=== PATIENT | male | born 1975 | race Caucasian/White ===

== ENCOUNTER 2021-09-21 13:24 | Outpatient (CLI) | payer OTHER, SELFPAY | END 2021-09-21 13:25 | disposition home or self-care (01) | LOC: WOUND 13:25 | PROVIDERS: Family Provider Nurse Practitioner Family; PCP Nurse Practitioner Family; Visit Provider Emergency Medicine | DX: I96 Gangrene, not elsewhere classified (principal); E11.621 Type 2 diabetes mellitus with foot ulcer; L97.412 Non-pressure chronic ulcer of right heel and midfoot with fat layer exposed; L97.512 Non-pressure chronic ulcer of other part of right foot with fat layer exposed | CPT/HCPCS: 11042; 87070; 87077; 87176; 87186; 87205; 99213 ==

== ENCOUNTER 2021-09-29 15:24 | Outpatient (CLI) | payer OTHER, SELFPAY ==
--- NOTE | 2021-09-29 15:47 | XR_ITS ---
WS: [id number] XR foot RT min 3V* [id number] REASON FOR EXAM: DIABETES MELLITUS WITH ULCER FINDINGS: No fracture no fracture. No bony erosion, destruction, or periosteal reaction. Bony fusion of the tarsal metatarsal joints of the first through the third toes. Moderate thickening of the cortex of the second through the fifth metatarsals. There is a pseudoarthrosis at the base of the fourth metatarsal. There is degenerative hypertrophic c hange in the articulation between the fourth and fifth metacarpals. Joint spaces of the mid and hindfoot are preserved. XR/XR foot RT min 3V* [id number] IMPRESSION: Presumed previous arthrodesis of the Lisfranc joint. No findings of osteomyelitis identified.
== END 2021-09-29 15:25 | disposition home or self-care (01) ==
LOC: RAD 15:31
PROVIDERS: Visit Provider Emergency Medicine
DX: E11.621 Type 2 diabetes mellitus with foot ulcer (principal)
CPT/HCPCS: 73630

== ENCOUNTER 2021-09-30 13:52 | Outpatient (CLI) | payer OTHER, SELFPAY | END 2021-09-30 13:53 | disposition home or self-care (01) | LOC: WOUND 13:53 | PROVIDERS: Visit Provider Nurse Practitioner Family | DX: I96 Gangrene, not elsewhere classified (principal); E11.621 Type 2 diabetes mellitus with foot ulcer; L97.412 Non-pressure chronic ulcer of right heel and midfoot with fat layer exposed; L97.512 Non-pressure chronic ulcer of other part of right foot with fat layer exposed | CPT/HCPCS: 11042 ==

== ENCOUNTER 2021-10-07 16:20 | Outpatient (CLI) | payer OTHER, SELFPAY | END 2021-10-07 16:21 | disposition home or self-care (01) | LOC: SPT 16:21 | PROVIDERS: Visit Provider Nurse Practitioner Family | DX: R26.89 Other abnormalities of gait and mobility (principal) | CPT/HCPCS: 97760 ==

== ENCOUNTER 2021-10-21 14:05 | Outpatient (CLI) | payer OTHER, SELFPAY | END 2021-10-21 14:06 | disposition home or self-care (01) | LOC: WOUND 14:06 | PROVIDERS: Visit Provider Emergency Medicine | DX: E11.621 Type 2 diabetes mellitus with foot ulcer (principal); I96 Gangrene, not elsewhere classified; L97.411 Non-pressure chronic ulcer of right heel and midfoot limited to breakdown of skin; L97.511 Non-pressure chronic ulcer of other part of right foot limited to breakdown of skin | CPT/HCPCS: 11042; 99212 ==

== ENCOUNTER 2021-10-28 13:52 | Outpatient (CLI) | payer OTHER, SELFPAY | END 2021-10-28 13:53 | disposition home or self-care (01) | LOC: WOUND 13:52 | PROVIDERS: Visit Provider Nurse Practitioner Family | DX: E11.621 Type 2 diabetes mellitus with foot ulcer (principal); L97.411 Non-pressure chronic ulcer of right heel and midfoot limited to breakdown of skin; L97.511 Non-pressure chronic ulcer of other part of right foot limited to breakdown of skin | CPT/HCPCS: 11042 ==

== ENCOUNTER 2021-11-30 11:22 | Outpatient (CLI) | payer OTHER, SELFPAY ==
--- NOTE | 2021-11-30 11:56 | USCV_ITS ---
Asif Guerra Age: 46 Gender: M : 1975 Exam Date: 11/30/2021 12:49 Ordering Phys: Marline Stephen DO Technologist: Charisse Crews [place] [facility] [place]: HISTORY: Non healing wound rt foot plantar surface. PROCEDURES: Venous duplex imaging was performed in only the right lower extremity. The following venous structures were evaluated: common femoral vein, greater saphenous vein, superficial femoral vein, and the popliteal vein. Study included Greater Saphenous vein and SSv. Serial compression, augmentation maneuvers, and spectral Doppler flow evaluation were performed. Grayscale and doppler images were obtained. Reflux maneuvers were performed with patient in the standing position. FINDINGS: ONLY RT LEG DONE PT VERY ANXIOUS TO HAVE SOMETHING DONE TO HELP WITH FOOT HEALING. Significant venous reflux was noted at the mid segment of the greater saphenous vein and small saphenous vein on the right side. CONCLUSIONS 1. No significant venous reflux in the above-mentioned identifiable veins. 2. Significant venous reflux of greater than 500 ms were noted at the mid segment of the greater saphenous vein and small saphenous vein on the right side. The small saphenous vein was found to be very superficial, at depth of 0.59 cm. 3. The greater saphenous vein segment was at a depth of 1.51 cm. The venous segment was 0.42 cm in diameter. Rest of the venous dimensions and depth from the surface are as mentioned above. No similar previous studies available for comparison Dr Tristin Robertson MD [facility] (Electronically Signed) Final Date: 06 December 2021 10:15 S
== END 2021-11-30 11:23 | disposition home or self-care (01) ==
PROVIDERS: Visit Provider Emergency Medicine
DX: E11.621 Type 2 diabetes mellitus with foot ulcer (principal); I87.2 Venous insufficiency (chronic) (peripheral)
CPT/HCPCS: 93971

== ENCOUNTER 2021-12-24 15:21 | Outpatient (CLI) | payer OTHER, SELFPAY ==
--- NOTE | 2021-12-24 15:47 | USCV_ITS ---
Asif Guerra Age: 46 Gender: M : 1975 Exam Date: 12/24/2021 15:50 Ordering Phys: Tesha Church Technologist: KRANTHI Exam Location: [facility] [place] Indication: TYPE II DIABETES MELLITUS FOOT ULCER Risk Factors: Previous Vascular Surgery: None RIGHT LEFT BP: 135.0 / 77.00 BP: 143.0/ 78.00 0 0 Waveform Velocity (cm/s) Velocity (cm/s) Waveform Triphasic 130.1 Iliac Prox 99.2 Triphasic Triphasic 90.4 Iliac Mid 97.3 Triphasic Triphasic 100.3 Iliac Distal 99.3 Triphasic Triphasic 88.2 BUSINESS DEVELOPMENT MANAGER 79.5 Triphasic Triphasic 102.5 SFA Prox 98.4 Triphasic Triphasic 78.3 SFA Mid 91.7 Triphasic Triphasic 114.7 SFA Dist 88.1 Triphasic Triphasic 65.9 POP 76.0 Triphasic Triphasic 84.0 DISPLAY DIRECTOR 42.4 Triphasic Triphasic 33.3 DPA 47.8 Triphasic SAMEER 1.3 1.3 FINDINGS RT DPA 170 RT DISPLAY DIRECTOR 180 LT DPA 160 LT DISPLAY DIRECTOR 184 Normal arterial Doppler waveforms Normal Doppler flow velocities Normal resting ABIs bilaterally CONCLUSIONS No evidence of any significant arterial obstruction, based on the above findings. Dr Tristin Robertson MD [facility] (Electronically Signed) Final Date: 25 Dec 2021 12:39 S
== END 2021-12-24 15:22 | disposition home or self-care (01) ==
LOC: RAD 15:25
PROVIDERS: Visit Provider Nurse Practitioner Family
DX: E11.621 Type 2 diabetes mellitus with foot ulcer (principal)
CPT/HCPCS: 93925

== ENCOUNTER → 2021-12-28 08:31 | Outpatient (BNVA) | payer OTHER, SELFPAY | PROVIDERS: Visit Provider Podiatrist Foot & Ankle Surgery | DX: E08.621 Diabetes mellitus due to underlying condition with foot ulcer (principal); L97.501 Non-pressure chronic ulcer of other part of unspecified foot limited to breakdown of skin | CPT/HCPCS: 73630 ==

== ENCOUNTER → 2022-03-24 13:49 | Outpatient (BNVA) | payer OTHER, SELFPAY | PROVIDERS: Visit Provider Nurse Practitioner Family | DX: Z01.89 Encounter for other specified special examinations (principal) | CPT/HCPCS: 87070; 87077; 87176; 87186; 87205 ==

== ENCOUNTER 2022-05-10 05:29 | Observation (INO) | payer OTHER, SELFPAY ==
[2022-05-10] VITALS (14 sets, daily range): BP systolic 114–138; BP diastolic 71–91; PULSE 54–114; RESP 16–21; TEMP 36.8–37.3; O2SAT 96–99; BMI 38.2; BMI 38.5
--- NOTE | 2022-05-10 05:46 | USCV_ITS ---
Mari Asif Age: 46 Gender: M : 1975 Exam Date: 05/10/2022 05:59 Ordering Phys: Joe Hudson MD Technologist: GREGORY Exam Location: [facility] [place] Indication: Rt leg swelling PROCEDURES: Venous duplex imaging was performed in only the right lower extremity. The following venous structures were evaluated: common femoral vein, profunda vein, proximal portion of the greater saphenous vein, superficial femoral vein, and the popliteal vein. In addition, the posterior tibial and peroneal trunk were evaluated. FINDINGS: Normal 2-D Doppler and augmentation and compressibility throughout the lower extremity venous structures. Additional imaging through the proximal calf veins also reveals no thrombus. Limited evaluation of the greater saphenous vein is patent with no thrombus. CONCLUSIONS No DVT right lower extremity. Dr. Lata Reilly DO (Electronically Signed) Final Date: 11 May 2022 09:50 S
--- NOTE | 2022-05-10 05:47 | ECG_ITS ---
[facility] Test Date: 2022-05-10 Pat Name: Asif Guerra Department: Room: Gender: Male [employer]: : 1975 Requested By: Joe Hernandez Order Number: [id number] Pepe MD: Tristin Robertson M.D. Measurements Intervals Rhame Rate: 101 P: 11 ID: [id number] QRS: -48 QRSD: 99 T: 30 QT: 338 QTc: 438 Interpretive Statements SINUS TACHYCARDIA LOW QRS VOLTAGE IN PRECORDIAL LEADS [QRS DEFLECTION < 1.0 mV IN CHEST LEADS] LEFT ANTERIOR FASCICULAR BLOCK [QRS AXIS <= -45, QR IN I, RS IN II] POSSIBLE ANTERIOR MYOCARDIAL INFARCTION , OF INDETERMINATE AGE [30 ms Q WAVE IN V3/V4, OR R < 0.2 mV IN V4] No previous ECG available for comparison Electronically Signed On 05-10-2022 20:40:23 CDT by Tristin Robertson M.D. [id number]
--- NOTE | 2022-05-10 05:49 | W.ED.EXTPRO ---
Documented by User: Joe Hudson MD 05/10/22 05:57 HPI - Extremity Problem General: Chief complaint: Extremity Problem,Nontraumatic Stated complaint: Right hip/groin pain Time Seen by Provider: 05/10/22 05:41 Source: patient Mode of arrival: ambulatory Limitations: no limitations History of Present Illness: See nurse assessment. Patient with complaints of right thigh pain started around 230 this morning. Patient states he has had soft tissue swelling to the right lower leg and ankle since around 11:30 PM last night. He denies any trauma. Denies any fever. Denies any shortness of breath or chest pain. He states he has had a diabetic foot ulcer to right lateral midfoot for approximately 3 years. States he is following up with wound care for this. Denies any trauma to either leg. No abdominal pain. Possible history includes type 2 diabetes mellitus. He does not use insulin. Denies any previous history of DVT. He is not on any blood thinners. He states he takes metformin, glipizide, lisinopril. He denies any allergies to medications. Associated symptoms: Deny chest pain or fever(s) Review of Systems Const: Denies: fever(s) or chills Eyes: Denies: change in vision ENMT: Denies: throat pain Card: Denies: chest pain or palpitations Resp: Denies: dyspnea or wheezing GI: Denies: abdominal pain, nausea or vomiting : Denies: flank pain Musc: Denies: neck pain or back pain Skin/Breast: Reports: other (Chronic ulcer to right lateral midfoot. C/o soft tissue swelling); Denies: pruritus Neuro: Denies: headache(s) or numbness in extremities Psych: Denies: anxiety Amaury/Lymph: Denies: enlarged lymph nodes PFS ED PFSH: Medical History Hypertension Physical Exam Const: COMMON NORMALS: no acute distress, patient oriented x3, alert and well nourished GENERAL APPEARANCE: cooperative HENMT: COMMON NORMALS: normocephalic and atraumatic HEAD & SCALP: normocephalic and atraumatic Eye: COMMON NORMALS: EOMs intact bilaterally Neck/C-Spine: COMMON NORMALS: full ROM, no lymphadenopathy, supple and no JVD Lymph: LYMPHATIC: no lymphadenopathy noted Chest: COMMONS NORMALS: normal inspection of the chest and normal palpation of entire chest wall Resp: COMMON NORMALS: normal respiratory effort, No retractions, No use of accessory muscles and clear to auscultation bilaterally AUSCULTATION: clear to auscultation bilaterally Cardio: COMMON NORMALS: no JVD, regular rhythm and Peripheral pulses 2+ throughout RHYTHM: regular rhythm PERIPHERAL PULSES: Peripheral pulses 2+ throughout OTHER: Mild regular tachycardia, peripheral pulses 2+ out of 4 bilaterally. GI: COMMON NORMALS: Normal to inspection, nondistended, normoactive bowel sounds present, Soft to palpation and non-tender PALPATION: Yes Soft to palpation : COMMON NORMALS: Yes no CVA tenderness BLADDER/KIDNEY EXAM: Yes no CVA tenderness Back/Pelvis: COMMON NORMALS: no CVA tenderness Extremity: COMMON NORMALS: normal to inspection and full ROM Neuro: COMMON NORMALS: patient oriented x3, CN's II-XII intact bilaterally, moves all extremities, no focal motor deficits and no sensory deficits noted SENSORIUM/ORIENTATION: Yes alert Psych: COMMON NORMALS: mental status grossly normal, Normal thought process present, cooperative, normal affect and speech normal SPEECH: Yes normal speech THOUGHT PROCESS: Normal thought process present Skin: OTHER: Patient has diabetic foot ulcer to right lateral mid plantar surface of the foot. No increased warmth or discharge from the wound. Minimal erythema to distal right lower leg. Course Vital Signs: Vital signs: Vital Signs Temperature 98.5 F 05/10/22 05:36 Pulse Rate 91 05/10/22 07:30 Respiratory Rate 19 H 05/10/22 07:30 Blood Pressure 121/78 05/10/22 07:30 Pulse Oximetry 98 05/10/22 07:30 Oxygen Delivery Me thod 05/10/22 07:30 MDM - Extremity (Nontraumatic) Medical Decision Making Possible DVT Care transitioned to Dr. Puga at shift change. 0600 Lab Data : 05/10/22 06:01 05/10/22 06:01 Radiology Impressions Foot X-Ray 05/10/22 06:25 IMPRESSION: 1. Soft tissue ulceration and swelling over the lateral aspect of the foot. 2. No acute bony abnormality. Laboratory Results WBC 13.4 10^3/uL (4.0-10.0) H 05/10/22 06:01 RBC 5.05 10^6/uL (4.1-5.3) 05/10/22 06:01 Hgb 15.4 g/dL (11.7-16.6) 05/10/22 06:01 Hct 46.7 % (42.0-52.0) 05/10/22 06:01 MCV 92.5 fl (80-94) 05/10/22 06:01 MCH 30.5 pg (28.0-34.0) 05/10/22 06:01 MCHC 33.0 g/dL (30.0-36.0) 05/10/22 06:01 RDW 12.5 % (12.1-15.1) 05/10/22 06:01 Plt Count 178 10^3/cmm (130-400) 05/10/22 06:01 MPV 11.9 fL (7.4-10.4) H 05/10/22 06:01 Neut % (Auto) 77.5 % 05/10/22 06:01 Lymph % (Auto) 13.6 % 05/10/22 06:01 [place] % (Auto) 7.7 % 05/10/22 06:01 Eos % (Auto) 0.5 % 05/10/22 06:01 Baso % (Auto) 0.4 % 05/10/22 06:01 Neut # (Auto) 10.38 10^3/uL (1.8-7.7) H 05/10/22 06:01 Lymph # (Auto) 1.8 10^3/uL (0.8-4.8) 05/10/22 06:01 [place] # (Auto) 1.0 10^3/uL (0.2-0.9) H 05/10/22 06:01 Eos # (Auto) 0.1 10^3/uL (0.0-0.8) 05/10/22 06:01 Baso # (Auto) 0.1 10^3/uL (0.0-0.1) 05/10/22 06:01 Nucleated RBC % (auto) 0 % 05/10/22 06:01 Nucleated RBCs # 0.0 /100WBC 05/10/22 06:01 D-Dimer 0.79 ug/mIFEU (0-0.59) H 05/10/22 06:01 Specimen Type Arterial 05/10/22 07:43 Sample Site Brachial, left 05/10/22 07:43 ABG pH 7.47 (7.35-7.45) H 05/10/22 07:43 ABG pCO2 34.4 mmHg (35-45) L 05/10/22 07:43 ABG pO2 82.2 mmHg (80.0-100.0) 05/10/22 07:43 ABG HCO3 25.2 mmol/L (22-26) 05/10/22 07:43 ABG O2 Saturation 97.6 05/10/22 07:43 ABG Base Excess 2.0 mmol/L (-2.0-2.0) 05/10/22 07:43 Gaetano Test Pos 05/10/22 07:43 A-a O2 Gradient 3.1 mmHg (5-10) L 05/10/22 07:43 Hematocrit 44.1 % (42-52) 05/10/22 07:43 Hgb O2 Saturation 97.7 % (95-100) 05/10/22 07:43 Carboxyhemoglobin 1.3 %THgb (0.4-20.1) 05/10/22 07:43 Methemoglobin < 0.0 % (0.4-1.5) L 05/10/22 07:43 Total Hemoglobin 14.4 g/dL (14-18) 05/10/22 07:43 Sodium 134.0 mmol/L (131-143) 05/10/22 07:43 Potassium 4.3 mmol/L (3.5-5.0) 05/10/22 07:43 Glucose 280.0 mg/dL (70-115) H 05/10/22 07:43 Ionized Calcium 1.1 mmol/L (1.1-1.4) 05/10/22 07:43 O2 Delivery Device Room air 05/10/22 07:43 FiO2 21.0 % 05/10/22 07:43 Electric Trucker ID Cak 05/10/22 07:43 Sodium 133 mmol/L (136-145) L 05/10/22 06:01 Potassium 4.4 mmol/L (3.5-5.1) 05/10/22 06:01 Chloride 93 mmol/L (98-107) L 05/10/22 06:01 Carbon Dioxide 27 mmol/L (22-29) 05/10/22 06:01 Anion Gap 17.4 (5-19) 05/10/22 06:01 BUN 11 mg/dL (6-20) 05/10/22 06:01 Creatinine 0.6 mg/dL (0.7-1.2) L 05/10/22 06:01 GFR Calculation 145.0 mL/min (90-130) H 05/10/22 06:01 Glucose 258 mg/dL (65-115) H 05/10/22 06:01 Calculated Osmolality 284 mOsm/kg (285-295) L 05/10/22 06:01 Lactic Acid 2.8 mmol/L (0.5-2.2) H 05/10/22 06:01 Calcium 9.5 mg/dL (8.5-10.5) 05/10/22 06:01 Discharge Plan Discharge Patient Disposition: Admitted As Inpatient Clinical Impression: Cellulitis, Diabetic foot ulcer, Type 2 diabetes mellitus Condition: Stable Sign Out Sign Out Data: Patient Sign Out occurred on 05/10/22 at 07:07. Patient's care was discussed, and care was transferred from to Kevin Puga DO. Coding Level of Care Code ED Abstract Checker for Chg Fwd Exam Comprehensive Documented by User: Kevin Puga DO 05/10/22 08:09 HPI - Extremity Problem General: Chief complaint: Extremity Problem,Nontraumatic Stated complaint: Right hip/groin pain Time Seen by Provider: 05/10/22 05:41 PFSH ED PFSH: Medical History Hypertension Course Vital Signs: Vital signs: Vital Signs Temperature 98.5 F 05/10/22 05:36 Pulse Rate 91 05/10/22 07:30 Respiratory Rate 19 H 05/10/22 07:30 Blood Pressure 121/78 05/10/22 07:30 Pulse Oximetry 98 05/10/22 07:30 Oxygen Delivery Me thod 05/10/22 07:30 MDM - Extremity (Nontraumatic) Medical Decision Making Possible DVT Care transitioned to Dr. Puga at shift change. 0600 Care assumed at change of shift. Venous duplex for DVT negative. White count 13 for the left shift elevated lactate he is tachycardic on arrival. Examination of the foot there is an open wound distal portion of the fifth metatarsal on the right foot no drainage it is mildly tender to the touch and warm. I do think he has developed a cellulitis the leg is warm to the touch. There is no drainage from the wound and x-ray does not show any subcutaneous gas CT is pending. Fluid bolus given as well as insulin start vancomycin discussed with hospitalist orders written Medical Records I reviewed the patient's medical records. Lab Data I reviewed the patient's lab results. : 05/10/22 06:01 05/10/22 06:01 Radiology Impressions Foot X-Ray 05/10/22 06:25 IMPRESSION: 1. Soft tissue ulceration and swelling over the lateral aspect of the foot. 2. No acute bony abnormality. Laboratory Results WBC 13.4 10^3/uL (4.0-10.0) H 05/10/22 06:01 RBC 5.05 10^6/uL (4.1-5.3) 05/10/22 06:01 Hgb 15.4 g/dL (11.7-16.6) 05/10/22 06:01 Hct 46.7 % (42.0-52.0) 05/10/22 06:01 MCV 92.5 fl (80-94) 05/10/22 06:01 MCH 30.5 pg (28.0-34.0) 05/10/22 06:01 MCHC 33.0 g/dL (30.0-36.0) 05/10/22 06:01 RDW 12.5 % (12.1-15.1) 05/10/22 06:01 Plt Count 178 10^3/cmm (130-400) 05/10/22 06:01 MPV 11.9 fL (7.4-10.4) H 05/10/22 06:01 Neut % (Auto) 77.5 % 05/10/22 06:01 Lymph % (Auto) 13.6 % 05/10/22 06:01 [place] % (Auto) 7.7 % 05/10/22 06:01 Eos % (Auto) 0.5 % 05/10/22 06:01 Baso % (Auto) 0.4 % 05/10/22 06:01 Neut # (Auto) 10.38 10^3/uL (1.8-7.7) H 05/10/22 06:01 Lymph # (Auto) 1.8 10^3/uL (0.8-4.8) 05/10/22 06:01 [place] # (Auto) 1.0 10^3/uL (0.2-0.9) H 05/10/22 06:01 Eos # (Auto) 0.1 10^3/uL (0.0-0.8) 05/10/22 06:01 Baso # (Auto) 0.1 10^3/uL (0.0-0.1) 05/10/22 06:01 Nucleated RBC % (auto) 0 % 05/10/22 06:01 Nucleated RBCs # 0.0 /100WBC 05/10/22 06:01 D-Dimer 0.79 ug/mIFEU (0-0.59) H 05/10/22 06:01 Specimen Type Arterial 05/10/22 07:43 Sample Site Brachial, left 05/10/22 07:43 ABG pH 7.47 (7.35-7.45) H 05/10/22 07:43 ABG pCO2 34.4 mmHg (35-45) L 05/10/22 07:43 ABG pO2 82.2 mmHg (80.0-100.0) 05/10/22 07:43 ABG HCO3 25.2 mmol/L (22-26) 05/10/22 07:43 ABG O2 Saturation 97.6 05/10/22 07:43 ABG Base Excess 2.0 mmol/L (-2.0-2.0) 05/10/22 07:43 Gaetano Test Pos 05/10/22 07:43 A-a O2 Gradient 3.1 mmHg (5-10) L 05/10/22 07:43 Hematocrit 44.1 % (42-52) 05/10/22 07:43 Hgb O2 Saturation 97.7 % (95-100) 05/10/22 07:43 Carboxyhemoglobin 1.3 %THgb (0.4-20.1) 05/10/22 07:43 Methemoglobin < 0.0 % (0.4-1.5) L 05/10/22 07:43 Total Hemoglobin 14.4 g/dL (14-18) 05/10/22 07:43 Sodium 134.0 mmol/L (131-143) 05/10/22 07:43 Potassium 4.3 mmol/L (3.5-5.0) 05/10/22 07:43 Glucose 280.0 mg/dL (70-115) H 05/10/22 07:43 Ionized Calcium 1.1 mmol/L (1.1-1.4) 05/10/22 07:43 O2 Delivery Device Room air 05/10/22 07:43 FiO2 21.0 % 05/10/22 07:43 Electric Trucker ID Cak 05/10/22 07:43 Sodium 133 mmol/L (136-145) L 05/10/22 06:01 Potassium 4.4 mmol/L (3.5-5.1) 05/10/22 06:01 Chloride 93 mmol/L (98-107) L 05/10/22 06:01 Carbon Dioxide 27 mmol/L (22-29) 05/10/22 06:01 Anion Gap 17.4 (5-19) 05/10/22 06:01 BUN 11 mg/dL (6-20) 05/10/22 06:01 Creatinine 0.6 mg/dL (0.7-1.2) L 05/10/22 06:01 GFR Calculation 145.0 mL/min (90-130) H 05/10/22 06:01 Glucose 258 mg/dL (65-115) H 05/10/22 06:01 Calculated Osmolality 284 mOsm/kg (285-295) L 05/10/22 06:01 Lactic Acid 2.8 mmol/L (0.5-2.2) H 05/10/22 06:01 Calcium 9.5 mg/dL (8.5-10.5) 05/10/22 06:01 Discharge Plan Discharge Patient Disposition: Admitted As Inpatient Clinical Impression: Cellulitis, Diabetic foot ulcer, Type 2 diabetes mellitus Condition: Stable Sign Out Sign Out Data: Patient Sign Out occurred on 05/10/22 at 07:07. Patient's care was discussed, and care was transferred from to Kevin Puga DO. Coding Level of Care Code ED Abstract Checker for Tejinderg Fwd Exam Comprehensive
[2022-05-10 06:05] LABS: Basophils # 0.1 10^3/uL (0.0-0.1); Basophils % 0.4 %; Eosinophils # 0.1 10^3/uL (0.0-0.8); Eosinophils % 0.5 %; Hematocrit 46.7 % (42.0-52.0); Hemoglobin 15.4 g/dL (11.7-16.6); Lymphocytes # 1.8 10^3/uL (0.8-4.8); Lymphocytes % 13.6 %; Mean Corpuscular Hemoglobin 30.5 pg (28.0-34.0); Mean Corpuscular Volume 92.5 fl (80-94); Mean Platelet Volume 11.9 fL (7.4-10.4); Monocytes % 7.7 %; Neutrophils # 10.38 10^3/uL (1.8-7.7); Neutrophils % 77.5 %; Nucleated Red Blood Cells % 0 %; Platelet Count 178 10^3/cmm (130-400); Red Blood Count 5.05 10^6/uL (4.1-5.3); Red Cell Distribution Width 12.5 % (12.1-15.1); White Blood Count 13.4 10^3/uL (4.0-10.0)
[2022-05-10 06:18] LABS: D Dimer 0.79 ug/mIFEU (0-0.59)
--- NOTE | 2022-05-10 06:25 | XRR_ITS ---
PROCEDURE INFORMATION: Exam: XR Right Foot Exam date and time: 05/10/2022 6:37 AM Age: 46 years old Clinical indication: Condition or disease; Other: Diabetic foot ulcer; Additional info: Infection/pain/diabetic ulcer TECHNIQUE: Imaging protocol: Radiologic exam of the Right foot. Views: 3 or more views. COMPARISON: No relevant prior studies available. FINDINGS: Bones/joints: There is old healed fracture of the 4th metatarsal bone. No acute bone or joint abnormality. Soft tissues: There is soft tissue ulceration and swelling in the lateral aspect of the foot. XR/XR foot RT min 3V* [id number] IMPRESSION: 1. Soft tissue ulceration and swelling over the lateral aspect of the foot. 2. No acute bony abnormality.
[2022-05-10 06:31] LABS: Anion Gap 17.4 (5-19); Blood Urea Nitrogen 11 mg/dL (6-20); Calcium 9.5 mg/dL (8.5-10.5); Carbon Dioxide 27 mmol/L (22-29); Chloride 93 mmol/L (98-107); Glucose 258 mg/dL (65-115); Osmolality Calculated 284 mOsm/kg (285-295); Potassium 4.4 mmol/L (3.5-5.1); Sodium 133 mmol/L (136-145)
[2022-05-10] MEDS: vancomycin 1,000 MG in sodium chloride 0.9% 250 ML 250 MG IV ×2 (06:39→12:00)
[2022-05-10] MEDS: sodium chloride 0.9% 1,000 ML 999 ML IV (06:39)
[2022-05-10 06:45] LABS: Lactic Sepsis W/Reflex 2.8 mmol/L (0.5-2.2)
--- NOTE | 2022-05-10 07:08 | CT_ITS ---
WS: [id number] CONTRAST-ENHANCED CT RIGHT FOOT TECHNIQUE: Contrast-enhanced CT RIGHT foot with coronal and sagittal reformatted images. CLINICAL INFORMATION: diabetic foot ulcer COMPARISON: None. DLP: 165.[address] scans at [facility] use at least one of these dose optimization techniques: automated e xposure control; mA and/or kV adjustment per patient size (includes targeted exams where dose is matc hed to clinical indication); or iterative reconstruction. FINDINGS: Soft tissue ulceration with soft tissue edema overlying the lateral aspect of the foot and 5th metata rsal. No drainable fluid collection or abscess. No evidence of osteomyelitis. Prior bony fusion of the 1st through 3rd TMT joints. Chronic cortical thickening and pseudoarthrosis 4th- 5th metatarsal unchanged since September 29, 2021. Achilles enthesophyte. CT/CT foot RT w con [id number] IMPRESSION: 1. Soft tissue ulceration with soft tissue edema and cellulitis overlying the lateral aspect of the foot and 5th metatarsal. 2. No drainable fluid collection or abscess. 3. No evidence of osteomyelitis.
[2022-05-10 07:54] LABS: ABG PCO2 34.4 mmHg (35-45); ABG PH Result 7.47 (7.35-7.45); Alveolar-Arterial Oxygen Gradi 3.1 mmHg (5-10); Arterial Blood Gas Hematocrit 44.1 % (42-52); Blood Gas Allen Test Pos; Blood Gas Operator Identificat CAK; Blood Gas Sample Site Brachial, left; Blood Gas Sample Type Arterial; Carboxyhemoglobin 1.3 %THgb (0.4-20.1); HCO3 ABG 25.2 mmol/L (22-26); HGB O2 Sat 97.7 % (95-100); Ionized Calcium Level - ABG 1.1 mmol/L (1.1-1.4); Methemoglobin < 0.0 % (0.4-1.5); Oxygen Device ROOM AIR; Oxygen Saturation ABG 97.6; PO2 ABG 82.2 mmHg (80.0-100.0); Potassium Level - ABG 4.3 mmol/L (3.5-5.0); Total Hemoglobin 14.4 g/dL (14-18)
[2022-05-10] MEDS: iohexol 350 mg/mL 100 mL Btl IV (08:13)
[2022-05-10] MEDS: insulin regular-human 100 units/1 mL 10 UNIT IVP (08:13)
[2022-05-10 08:21] LABS: Reflex Lactate Order REFLEX LACTIC ORDERD
--- NOTE | 2022-05-10 08:21 | PC.PHAR ---
pt states he takes care of his own medications-cornelio Magana states metformin 500mg bid last filled 07/20/2021 90d/s pt states still taking
--- NOTE | 2022-05-10 08:24 | P.HP_ITS ---
Providers/Chief Complaint Admitting Physician: Jose L Leblanc MD Chief Complaint: Right hip/groin pain History of Present Illness Asif Guerra is a 46 year old male who presents to the emergency department complaining of right leg swelling, foot swelling, and groin pain. He denies any fevers or chills. He reports he started noticing this yesterday. He has some drainage from his chronic diabetic foot ulcer on the right lower extremity as well. This was last debrided in wound clinic on May 05. He denies any other illness. No shortness of breath, cough, or chest discomfort. Review of Systems General: Reports: 10 or more systems reviewed and unremarkable except in HPI and below Const: Denies: fever(s) or chills Eyes: Denies: change in vision ENMT: Denies: throat pain Card: Denies: chest pain Resp: Denies: dyspnea GI: Denies: abdominal pain : Denies: flank pain Musc: Reports: extremity pain and extremity swelling; Denies: neck pain Skin/Breast: Denies: rash Neuro: Denies: headache(s) Psych: Denies: anxiety or depression Endo: Denies: polyuria Amaury/Lymph: Denies: easy bruising Medications/Allergies Home Medications Medication Instructions Recorded Confirmed Last Taken Type glipizide 5 mg tablet, extended 5 mg PO DAILY@09/17/21 05/10/22 05/09/22 History release 24 hr metformin 500 mg tablet 500 mg PO BID 09/17/21 05/10/22 Unknown History AFO to the right #1 ea 12/28/21 05/10/22 Unknown Rx Extra Depth Diabetic Shoes with #1 ea 12/28/21 05/10/22 Unknown Rx Custom Molded Orthotics albuterol sulfate 90 mcg/actuation 2 puff inhalation Q4H PRN 05/10/22 05/10/22 Unknown History aerosol inhaler Shortness Of Breath ibuprofen 200 mg tablet (Advil) 400 mg PO Q6H PRN Pain 05/10/22 05/10/22 Unknown History lisinopril 10 mg tablet 10 mg PO DAILY@23 05/10/22 05/10/22 05/09/22 History Allergies Allergy/AdvReac Type Severity Reaction Status Date / Time No Known Allergies Allergy Verified 05/10/22 08:15 PFSH Acute PFSH: Medical History (Updated 05/10/22 @ 08:27 by Jose L Leblanc MD) Diabetic foot ulcer Hypertension Type 2 diabetes mellitus Surgical History (Updated 05/10/22 @ 08:27 by Jose L Leblanc MD) History of hernia repair Umbilical Family History (Updated 05/10/22 @ 08:27 by Jose L Leblanc MD) Other CAD (coronary artery disease) Social History (Updated 05/10/22 @ 08:28 by Jose L Leblanc MD) Smoking and tobacco status: never smoked Alcohol intake: never Vitals/I&O/Wt Last Vital Signs Temp 98.5 F 05/10/22 05:36 Pulse 91 05/10/22 07:30 Resp 19 H 05/10/22 07:30 BP 115/82 05/10/22 08:00 Pulse Ox 98 05/10/22 07:30 O2 Del Method 05/10/22 08:00 05/09/22 05/10/22 05/10/22 22:59 06:59 14:59 Intake Total 250 / 250 Balance 250 / 250 Weight last 48 hrs Weight 124.284 kg Physical Exam Narrative: General exam is a white male, conversant, in no distress HEENT: Pupils equally round. Atraumatic normocephalic. Oropharynx clear. Neck is supple obese nontender. No obvious thyromegaly or lymphadenopathy Cardiovascular regular rate and rhythm without murmur. No S3 or S4 Lungs clear without wheezing or crackles Abdomen is soft nontender positive bowel sounds. Umbilical hernias noted easily reducible. No obvious organomegaly. exams deferred Extremities no cyanosis clubbing. Right lower extremity has edema at least 1+. There is some erythema over the elizabeth which patient reports is old. There is erythema over the dorsal lateral foot which the patient reports is worse than usual. Diabetic foot ulcer is noted lateral plantar region, approximately 2 cm, with some clear drainage and no obvious odor. Pulses are present. Skin see findings above Neuro no obvious focal deficits Data : 05/10/22 06:01 05/10/22 06:01 Other Labs: Dimer was checked and 0.79 ABG checked pH 7.47, PCO2 34, PO2 82 on room air Lactate 2.8, calcium 9.5 Liver function tests were not obtained X-ray of foot demonstrates some soft tissue ulceration swelling lateral aspect but no obvious osteomyelitis CT foot demonstrates Venous duplex right lower extremity has been taken and per verbal report negative for DVT. Awaiting official report Blood cultures have been obtained EKG demonstrates sinus rhythm, left axis deviation, borderline tachycardia with heart rate of 101 Micro: Microbiology 05/10/22 07:03 Blood Culture - Preliminary Blood SPECIMEN COLLECTED 05/10/22 06:30 Blood Culture - Preliminary Blood SPECIMEN COLLECTED A&P Assessment and plan (1) Cellulitis: Presents with right lower extremity swelling, elevated white blood cell count, swelling and patient with chronic diabetic foot ulcer. Initiate IV antibiotics, Vancomycin and Zosyn. CT scan demonstrates no evidence of osteomyelitis Note previous cultures of his right foot grew staph aureus, not MRSA Consult wound care, surgery, Dr. Orozco for evaluation of lower extremity wound Status: Acute (2) Diabetic foot ulcer: See above. Status: Acute (3) Type 2 diabetes mellitus: Sliding scal insulin. Hold Metformin. Received contrast Status: Acute Plan Hypertension, continue home medications Full code Lovenox for DVT prophylaxis Attestations Medical Necessity Statement*: Will potentially require less than 2 midnight stay for evaluation and treatment of cellulitis right lower extremity with elevated white blood cell count, lactate level and significant swelling in this diabetic patient with foot ulcer. Coding Level of Care Code Acute Lav Crewman for [facility] Diagnoses Cellulitis L03.90 Diabetic foot ulcer E11.621; L97.509 Type 2 diabetes mellitus E11.9
[2022-05-10] MEDS: SODIUM CHLORIDE 0.9% 3728.52 ML IV (08:44)
[2022-05-10 09:11] LABS: Estmated Average Glucose 258; Hemoglobin A1C 10.6 % (4.0-6.0)
[2022-05-10] MEDS: piperacillin-tazobactam 3.375 GM in sodium chloride 0.9% (plus) 50 ML IV ×2 (09:13→18:15)
[2022-05-10 09:14] LABS: Lactic Acid level (Lactate) 2.6 mmol/L (0.5-2.2)
[2022-05-10] MEDS: enoxaparin 40 mg/0.4 mL Syringe SUBCUT (11:59)
[2022-05-10 12:16] LABS: Glucose Point of Care 311 mg/dL (70-110)
[2022-05-10] MEDS: insulin lispro 100 unit/1 mL SUBCUT ×3 (13:14→21:15)
--- NOTE | 2022-05-10 15:27 | PM.CONSULT ---
Providers/Reason For Consult Consulting Physician/Specialty*: Patrick Orozco MD Reason for Consult*: Diabetic foot ulcer Attending Physician: Jose L Leblanc MD History of Present Illness History of Present Illness Mr. Asif Guerra is a pleasant 46 year old male well-known to me from the wound care center because of chronic diabetic foot ulcer. Patient has been seen recently by Ms. Church nurse practitioner at the wound care center. He presented today to the ER with complaint of right leg swelling and groin pain. That was started noticing yesterday. No other constitutional symptoms. Patient undergone a CT scan of the right foot that did show 1.? Soft tissue ulceration with soft tissue edema and cellulitis overlying the lateral aspect of the foot and 5th metatarsal. 2.? No drainable fluid collection or abscess. 3.? No evidence of osteomyelitis. ? General surgery was consulted for further evaluation and potential further management Review of Systems General: Reports: 10 or more systems reviewed and unremarkable except in HPI and below Medications/Allergies Home Medications Medication Instructions Recorded Confirmed Last Taken Type glipizide 5 mg tablet, extended 5 mg PO DAILY@09/17/21 05/10/22 05/09/22 History release 24 hr metformin 500 mg tablet 500 mg PO BID 09/17/21 05/10/22 Unknown History AFO to the right #1 ea 12/28/21 05/10/22 Unknown Rx Extra Depth Diabetic Shoes with #1 ea 12/28/21 05/10/22 Unknown Rx Custom Molded Orthotics albuterol sulfate 90 mcg/actuation 2 puff inhalation Q4H PRN 05/10/22 05/10/22 Unknown History aerosol inhaler Shortness Of Breath ibuprofen 200 mg tablet (Advil) 400 mg PO Q6H PRN Pain 05/10/22 05/10/22 Unknown History lisinopril 10 mg tablet 10 mg PO DAILY@05/10/22 05/10/22 05/09/22 History Allergies Allergy/AdvReac Type Severity Reaction Status Date / Time No Known Allergies Allergy Verified 05/10/22 08:15 Current Medications Generic Name Dose Route Start Last Admin Trade Name Freq PRN Reason Stop Dose Admin Enoxaparin Sodium 40 mg 05/10/22 10:12 05/10/22 11:59 Enoxaparin 40 Mg/0.4 Ml Syringe SUBCUT 40 mg Q24H TACHO Administration Piperacillin Sod/Tazobactam 50 mls @ 12.5 mls/hr 05/10/22 09:30 05/10/22 09:13 Sod 3.375 gm/ Sodium Chloride IV 12.5 mls/hr Q8H TACHO Administration Protocol Insulin Human Lispro 0 unit 05/10/22 12:00 05/10/22 13:14 Insulin Lispro 100 Unit/1 Ml SUBCUT 1 unit WM&BEDTIME TACHO Administration Protocol PFSH Acute PFSH: Medical History Diabetic foot ulcer Hypertension Type 2 diabetes mellitus Surgical History History of hernia repair Umbilical Family History Other CAD (coronary artery disease) Social History Smoking and tobacco status: never smoked Alcohol intake: never Vitals/I&O/Wt Last Vital Signs Temp 98.2 F 05/10/22 12:00 Pulse 91 05/10/22 12:00 Resp 16 05/10/22 12:00 BP 134/83 05/10/22 12:00 Pulse Ox 98 05/10/22 12:00 O2 Del Method 05/10/22 12:14 05/10/22 05/10/22 05/10/22 06:59 14:59 22:59 Intake Total 1250 / 1250 Balance 1250 / 1250 Weight last 48 hrs Weight 276 lb 9 oz Weight 274 lb Physical Exam Narrative: Patient is conscious alert oriented X3 No apparent distress BMI 38.6 Head and neck examination PERRLA no masses no cervical lymphadenopathy no jaundice Cardiac examination audible S1-S2 no murmurs no gallops no arrhythmias Chest is clear bilateral,abscence of Rhonchi or wheezes,no surgical emphysema Abdomen nontender nondistended soft no organomegaly guarding or rigidity/no signs of peritonitis Extremities no cyanosis no clubbing no edema Right foot ulcer measures about 2 x [address] to the fatty layer located at the distal lateral aspect of the right forefoot surrounded with minimal callus formation and mild dorsal cellulitic changes, no evidence of discharge and well palpable right dorsalis pedis artery. Noticed valgus deformity of the right which is quite chronic and patient has an appointment to see Dr. Stapleton Data : 05/10/22 06:01 05/10/22 06:01 Micro: Microbiology 05/10/22 07:03 Blood Culture - Preliminary Blood SPECIMEN COLLECTED 05/10/22 06:30 Blood Culture - Preliminary Blood SPECIMEN COLLECTED A&P Assessment and plan (1) Diabetic foot ulcer: 1-nutrition optimization 2-wound care in the form of application of Hydrofera Blue followed by OPTi foam and most importantly offloading 3-management of medical comorbidities per hospitalist service 4-patient was well educated about the importance of offloading 5-assurance and education No surgical intervention at this point and we will plan to have the patient follow-up at the wound care center with Ms. Church All questions have been answered and all concerns have been addressed to patient's satisfaction. Status: Acute (2) Cellulitis: Medical management Assurance and education All questions have been answered and all concerns have been addressed to patient's satisfaction. Status: Acute Consult Attestations Medical Necessity Statement: Per admitting service Coding Level of Care Code Acute [employer] Underwriter for [facility] F[facility] Diagnoses Diabetic foot ulcer E11.621; L97.509 Cellulitis L03.90
[2022-05-10 15:50] LABS: Glucose Point of Care 261 mg/dL (70-110)
[2022-05-10] MEDS: HYDROcodone-acetaminophen 5-325 mg Tablet 1 TAB PO (18:28)
[2022-05-10 21:18] LABS: Glucose Point of Care 238 mg/dL (70-110)
[2022-05-10] MEDS: lisinopril 10 mg Tablet PO (22:14)
[2022-05-11] VITALS: BP 120/74; PULSE 78; RESP 16; TEMP 36.9; O2SAT 97
[2022-05-11] MEDS: piperacillin-tazobactam 3.375 GM in sodium chloride 0.9% (plus) 50 ML IV ×2 (00:38→08:25)
[2022-05-11 04:00] VITALS: BP 129/84; PULSE 74; RESP 17; TEMP 36.9; O2SAT 99
[2022-05-11 06:18] LABS: Basophils % 0.6 %; Eosinophils # 0.1 10^3/uL (0.0-0.8); Eosinophils % 1.4 %; Hematocrit 42.7 % (42.0-52.0); Hemoglobin 13.8 g/dL (11.7-16.6); Lymphocytes % 29.8 %; Mean Corpuscular HGB Conc 32.3 g/dL (30.0-36.0); Mean Corpuscular Hemoglobin 30.4 pg (28.0-34.0); Mean Corpuscular Volume 94.1 fl (80-94); Mean Platelet Volume 12.2 fL (7.4-10.4); Monocytes # 0.8 10^3/uL (0.2-0.9); Monocytes % 11.6 %; Neutrophils # 3.69 10^3/uL (1.8-7.7); Neutrophils % 56.1 %; Nucleated Red Blood Cells % 0 %; Platelet Count 151 10^3/cmm (130-400); Red Blood Count 4.54 10^6/uL (4.1-5.3); Red Cell Distribution Width 12.6 % (12.1-15.1); White Blood Count 6.6 10^3/uL (4.0-10.0)
[2022-05-11 06:38] LABS: Alanine Aminotransferase 17 U/L (0-41); Albumin Level 3.3 g/dL (3.5-5.2); Alkaline Phosphatase 83 U/L (40-130); Anion Gap 16.1 (5-19); Aspartate Amino Transferase 12 U/L (0-40); Blood Urea Nitrogen 10 mg/dL (6-20); Calcium 8.3 mg/dL (8.5-10.5); Carbon Dioxide 24 mmol/L (22-29); Chloride 98 mmol/L (98-107); Globulin 3.4 g/dL (1.3-4.6); Glomerular Filtration Rate 121.4 mL/min (90-130); Glucose 303 mg/dL (65-115); Osmolality Calculated 288 mOsm/kg (285-295); Potassium 4.1 mmol/L (3.5-5.1); Sodium 134 mmol/L (136-145); Total Bilirubin 0.7 mg/dL (0.15-1.2); Total Protein 6.7 g/dL (6.6-8.7)
[2022-05-11 06:47] LABS: Glucose Point of Care 312 mg/dL (70-110)
[2022-05-11 07:36] VITALS: BP 133/90; PULSE 72; RESP 16; TEMP 36.7; O2SAT 95
--- NOTE | 2022-05-11 08:25 | P.DS_ITS ---
Discharge Providers Date of Admission: 05/10/22 10:12 Date of Discharge: May 11, 2022 Attending Provider at Admission: Jose L Leblanc MD Attending Provider at Discharge: Jose L Leblanc MD Diagnoses at Discharge Discharge Diagnosis (1) Diabetic foot ulcer: Status: Acute (2) Cellulitis: Status: Acute Reason for Visit Reason for Visit: Right hip/groin pain Hospital Course Hospital Course Asif 46-year-old white male who presented to the hospital with complaints of pain in his foot, edema, and redness. He reported he really noticed it the night prior. No fever or chills. He has had issues with a diabetic foot ulcer on this foot for quite some time for which she sees wound care. He was found to have an elevated white blood cell count, and was admitted for observation for initiation of IV antibiotics. CT scan of the foot was performed demonstrating no obvious osteomyelitis. Venous duplex was performed with preliminary study negative for DVT. Vancomycin and Zosyn was initiated and he was reevaluated the next day. Wound care was also consulted. He had significant vast improvement of his cellulitis by the next day. White blood cell count had normalized. Erythema was nearly gone. It was thought he could transition to oral antibiotic s in the form of Augmentin and doxycycline and follow-up expeditiously at his regular wound care clinic appointments. We discussed he could resume his metformin on Monday as he received radiological dye during this hospital stay. He was also encouraged to get better control of his glucose. Hemoglobin A1c was greater than 10. He will be discussing this with his primary care provider. Physical Exam Narrative: General exam no distress Neck is supple no lymphadenopathy dye megaly Cardiovascular regular rate and rhythm without murmur Lungs clear Abdomen is soft positive bowel sounds Extremities no cyanosis clubbing. Right lower extremity edema vastly improved. Slight erythema dorsum right foot but significantly improved. Diabetic foot ulcer unchanged. Skin see findings above Discharge Data Studies Completed and Pending Completed Studies During Hospitalization Category Date Time Status CT foot RT w con [id number] Stat Cat Scan 05/10/22 07:08 Completed XR foot RT min 3V* [id number] Stat Exams 05/10/22 06:25 Completed Pending at discharge Category Date Time Status Blood Culture Stat Lab 05/10/22 07:03 Results Vancomycin Trough Timed Lab 05/11/22 19:00 Ordered US venous duplex lower extremity RT [CV venous duplex Ultrasound 05/10/22 05:[address] [place] [id number]] Stat Radiology Impressions Foot X-Ray 05/10/22 06:25 IMPRESSION: 1. Soft tissue ulceration and swelling over the lateral aspect of the foot. 2. No acute bony abnormality. Foot CT 05/10/22 07:08 IMPRESSION: 1. Soft tissue ulceration with soft tissue edema and cellulitis overlying the lateral aspect of the foot and 5th metatarsal. 2. No drainable fluid collection or abscess. 3. No evidence of osteomyelitis. Laboratory Results WBC 6.6 10^3/uL (4.0-10.0) 05/11/22 05:59 RBC 4.54 10^6/uL (4.1-5.3) 05/11/22 05:59 Hgb 13.8 g/dL (11.7-16.6) 05/11/22 05:59 Hct 42.7 % (42.0-52.0) 05/11/22 05:59 MCV 94.1 fl (80-94) H 05/11/22 05:59 MCH 30.4 pg (28.0-34.0) 05/11/22 05:59 MCHC 32.3 g/dL (30.0-36.0) 05/11/22 05:59 RDW 12.6 % (12.1-15.1) 05/11/22 05:59 Plt Count 151 10^3/cmm (130-400) 05/11/22 05:59 MPV 12.2 fL (7.4-10.4) H 05/11/22 05:59 Neut % (Auto) 56.1 % 05/11/22 05:59 Lymph % (Auto) 29.8 % 05/11/22 05:59 [place] % (Auto) 11.6 % 05/11/22 05:59 Eos % (Auto) 1.4 % 05/11/22 05:59 Baso % (Auto) 0.6 % 05/11/22 05:59 Neut # (Auto) 3.69 10^3/uL (1.8-7.7) 05/11/22 05:59 Lymph # (Auto) 2.0 10^3/uL (0.8-4.8) 05/11/22 05:59 [place] # (Auto) 0.8 10^3/uL (0.2-0.9) 05/11/22 05:59 Eos # (Auto) 0.1 10^3/uL (0.0-0.8) 05/11/22 05:59 Baso # (Auto) 0.0 10^3/uL (0.0-0.1) 05/11/22 05:59 Nucleated RBC % (auto) 0 % 05/11/22 05:59 Nucleated RBCs # 0.0 /100WBC 05/11/22 05:59 D-Dimer 0.79 ug/mIFEU (0-0.59) H 05/10/22 06:01 Specimen Type Arterial 05/10/22 07:43 Sample Site Brachial, left 05/10/22 07:43 ABG pH 7.47 (7.35-7.45) H 05/10/22 07:43 ABG pCO2 34.4 mmHg (35-45) L 05/10/22 07:43 ABG pO2 82.2 mmHg (80.0-100.0) 05/10/22 07:43 ABG HCO3 25.2 mmol/L (22-26) 05/10/22 07:43 ABG O2 Saturation 97.6 05/10/22 07:43 ABG Base Excess 2.0 mmol/L (-2.0-2.0) 05/10/22 07:43 [place] Test Pos 05/10/22 07:43 A-a O2 Gradient 3.1 mmHg (5-10) L 05/10/22 07:43 Hematocrit 44.1 % (42-52) 05/10/22 07:43 Hgb O2 Saturation 97.7 % (95-100) 05/10/22 07:43 Carboxyhemoglobin 1.3 %THgb (0.4-20.1) 05/10/22 07:43 Methemoglobin < 0.0 % (0.4-1.5) L 05/10/22 07:43 Total Hemoglobin 14.4 g/dL (14-18) 05/10/22 07:43 Sodium 134.0 mmol/L (131-143) 05/10/22 07:43 Potassium 4.3 mmol/L (3.5-5.0) 05/10/22 07:43 Glucose 280.0 mg/dL (70-115) H 05/10/22 07:43 Ionized Calcium 1.1 mmol/L (1.1-1.4) 05/10/22 07:43 O2 Delivery Device Room air 05/10/22 07:43 FiO2 21.0 % 05/10/22 07:43 Tractor Sweeper Operator ID Cak 05/10/22 07:43 Sodium 134 mmol/L (136-145) L 05/11/22 05:59 Potassium 4.1 mmol/L (3.5-5.1) 05/11/22 05:59 Chloride 98 mmol/L (98-107) 05/11/22 05:59 Carbon Dioxide 24 mmol/L (22-29) 05/11/22 05:59 Anion Gap 16.1 (5-19) 05/11/22 05:59 BUN 10 mg/dL (6-20) 05/11/22 05:59 Creatinine 0.7 mg/dL (0.7-1.2) 05/11/22 05:59 GFR Calculation 121.4 mL/min (90-130) 05/11/22 05:59 Glucose 303 mg/dL (65-115) H 05/11/22 05:59 POC Glucose 312 mg/dL (70-110) H 05/11/22 06:40 Estimat Average Glucose 258 05/10/22 06:01 Hemoglobin A1c 10.6 % (4.0-6.0) H 05/10/22 06:01 Calculated Osmolality 288 mOsm/kg (285-295) 05/11/22 05:59 Lactic Acid 2.8 mmol/L (0.5-2.2) H 05/10/22 06:01 Lactic Acid (Sepsis) 2.6 mmol/L (0.5-2.2) H 05/10/22 08:50 Calcium 8.3 mg/dL (8.5-10.5) L 05/11/22 05:59 Total Bilirubin 0.7 mg/dL (0.15-1.2) 05/11/22 05:59 AST 12 U/L (0-40) 05/11/22 05:59 ALT 17 U/L (0-41) 05/11/22 05:59 Alkaline Phosphatase 83 U/L (40-130) 05/11/22 05:59 Total Protein 6.7 g/dL (6.6-8.7) 05/11/22 05:59 Albumin 3.3 g/dL (3.5-5.2) L 05/11/22 05:59 Globulin 3.4 g/dL (1.3-4.6) 05/11/22 05:59 Vitals Last Vital Signs Temp 98.1 F 05/11/22 07:36 Pulse 72 05/11/22 07:36 Resp 16 05/11/22 07:36 BP 133/90 05/11/22 07:36 Pulse Ox 95 05/11/22 07:36 O2 Del Method 05/11/22 07:36 Discharge Plan Discharge Patient Disposition: Home Condition: Stable Prescriptions: New doxycycline hyclate 100 mg capsule 100 mg PO BID 10 Days Qty: 20 0RF amoxicillin-pot clavulanate 875-125 mg tablet 1 tab PO BID Qty: 20 0RF Continued metformin 500 mg tablet 500 mg PO BID glipizide 5 mg tablet extended release 24hr 5 mg PO DAILY@23 (DME) Extra Depth Diabetic Shoes with Custom Molded Orthotics See Rx Instructions .Route .MEDSUPPLY Qty: 1 0RF Rx Instructions: As directed [facility] [employer] (DME) AFO to the right See Rx Instructions .Route .MEDSUPPLY Qty: 1 0RF Rx Instructions: As directed [facility] [employer] [facility] lisinopril 10 mg tablet 10 mg PO DAILY@23 Advil 200 mg Tablet 400 mg PO Q6H PRN (Reason: Pain) albuterol sulfate 90 mcg/actuation HFA aerosol inhaler 2 puff INHALATION Q4H PRN (Reason: Shortness Of Breath) Discharge Orders: Discharge Order (Routine); Ordered 05/11/22 Ordered By: Jose L Leblanc Referrals: Sharon Robins FNP [Nurse Practitioner] - 05/17/22 12:45 pm Patrick Orozco MD [Physician] - (Return to wound care center and follow-up with Ms. Church) Discharge Diet: Diabetic Discharge Activity: Increase activity as tolerated Patient Instructions: Opioid Safety Activity Restrictions/Additional Instructions: Educating the patient about nonweightbearing right forefoot Take antibiotics as prescribed Return for any concerns Keep appointment with wound care next week as scheduled Wound care as per Dr. Orozco May discharge after today's vancomycin infusion completed Do not resume your metformin until Monday. Discharge Attestations Time Spent in Discharge Care*: greater than 30 min Quality Metrics Clinical Quality Measures [ No reported AMI, CVA or VTE this stay] Coding Level of Care Code Acute [facility] note Diagnoses Diabetic foot ulcer E11.621; L97.509 Cellulitis L03.90
[2022-05-11] MEDS: insulin lispro 100 unit/1 mL SUBCUT (08:26)
[2022-05-11 11:43] VITALS: BP 106/67; PULSE 70; RESP 18; TEMP 36.8; O2SAT 95
[2022-05-11 11:52] LABS: Glucose Point of Care 285 mg/dL (70-110)
[2022-05-11 12:04] VITALS: BP 106/67; PULSE 70; RESP 18; TEMP 36.8; O2SAT 95
== END 2022-05-11 12:45 | disposition home or self-care (01) ==
LOC: ER 07:53 → MEDSURG 10:15
PROVIDERS: Family Medicine; Admitting Provider Internal Medicine; Emergency Provider Family Medicine; Visit Provider Internal Medicine
DX: E11.621 Type 2 diabetes mellitus with foot ulcer (principal); L03.90 Cellulitis, unspecified; L97.519 Non-pressure chronic ulcer of other part of right foot with unspecified severity; Z79.84 Long term (current) use of oral hypoglycemic drugs; I10 Essential (primary) hypertension
CPT/HCPCS: 36415; 36416; 36600; 73630; 73701; 80048; 80051; 80053; 82330; 82805; 82962; 83036; 83605; 85025; 85378; 87040; 93005; 93971; 96365; 96366; 96367; 96372; 96375; 99285; G0378; J1650; J1815; J2543; J3370; J7030; J7040; J7050; Q9967

== ENCOUNTER 2022-07-21 15:51 | Outpatient (CLI) | payer OTHER, SELFPAY ==
--- NOTE | 2022-07-21 16:00 | XRR_ITS ---
PROCEDURE INFORMATION: Exam: XR Right Foot Exam date and time: 07/21/2022 4:00 PM Age: 46 years old Clinical indication: Condition or disease; Other: Diabetic ulcer; Additional info: E11.621 - type 2 diabetes mellitus with foot ulcer TECHNIQUE: Imaging protocol: Radiologic exam of the Right foot. Views: Frontal, lateral, and oblique, 3 views. COMPARISON: CT foot RT w con [id number] 05/10/2022 7:58 AM FINDINGS: Bones/joints: No destructive bony process identified. 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 Healed proximal 5th metatarsal fracture. Fifth DIP joint fusion, normal variant. Soft tissues: Lateral and plantar forefoot soft tissue ulcer with soft tissue swelling. XR/XR foot RT min 3V* [id number] IMPRESSION: 1. No destructive bony process identified. 2. 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 3. Lateral and plantar forefoot soft tissue ulcer with soft tissue swelling. Cellulitis is likely. Clinical correlation is recommended.
== END 2022-07-21 15:52 | disposition home or self-care (01) ==
PROVIDERS: PCP Nurse Practitioner Family; Visit Provider Nurse Practitioner Family
DX: E11.621 Type 2 diabetes mellitus with foot ulcer (principal); L97.509 Non-pressure chronic ulcer of other part of unspecified foot with unspecified severity
CPT/HCPCS: 73630

== ENCOUNTER 2022-07-28 15:42 | Inpatient (IN) | payer OTHER, SELFPAY ==
[2022-07-28 15:55] VITALS: BP 125/75; PULSE 104; RESP 16; TEMP 37.2; O2SAT 98; BMI 38.3
--- NOTE | 2022-07-28 17:29 | XRR_ITS ---
PROCEDURE INFORMATION: Exam: XR Right Foot Exam date and time: 07/28/2022 5:37 PM Age: 46 years old Clinical indication: Pain; Foot; Right; Additional info: Pain, swelling, erythema. Infection TECHNIQUE: Imaging protocol: Radiologic exam of the Right foot. Views: 1 or 2 views. COMPARISON: CR XR foot RT min 3V* [id number] 07/21/2022 4:00 PM FINDINGS: Bones/joints: No acute fractures. No aggressive lytic bone lesion. Incompletely healed fracture of the 4th metatarsal base redemonstrated. Joint spaces have anatomic alignment. Soft tissues: Lateral forefoot soft tissue swelling. There is a focal defect in the superficial soft tissues. No foreign body. Diffuse soft tissue swelling. XR/XR foot RT 2V [id number] IMPRESSION: 1. Negative for osteomyelitis. 2. Increased soft tissue swelling.
[2022-07-28 17:30] LABS: Basophils % 0.5 %; Eosinophils # 0.1 10^3/uL (0.0-0.8); Eosinophils % 1.1 %; Hematocrit 43.9 % (42.0-52.0); Hemoglobin 14.6 g/dL (11.7-16.6); Lymphocytes # 2.4 10^3/uL (0.8-4.8); Lymphocytes % 29.3 %; Mean Corpuscular HGB Conc 33.3 g/dL (30.0-36.0); Mean Corpuscular Hemoglobin 29.9 pg (28.0-34.0); Monocytes % 12.1 %; Neutrophils # 4.57 10^3/uL (1.8-7.7); Neutrophils % 56.5 %; Nucleated Red Blood Cells % 0 %; Platelet Count 214 10^3/cmm (130-400); Red Blood Count 4.88 10^6/uL (4.1-5.3); Red Cell Distribution Width 12.3 % (12.1-15.1); White Blood Count 8.1 10^3/uL (4.0-10.0)
[2022-07-28 17:40] LABS: Erythrocyte Sedimentation Rate 17 mm/hr (0-10)
[2022-07-28 17:56] LABS: Alanine Aminotransferase 13 U/L (0-41); Albumin Level 3.6 g/dL (3.5-5.2); Alkaline Phosphatase 116 U/L (40-130); Anion Gap 14.3 (5-19); Aspartate Amino Transferase 13 U/L (0-40); Blood Urea Nitrogen 15 mg/dL (6-20); Calcium 9.5 mg/dL (8.5-10.5); Carbon Dioxide 26 mmol/L (22-29); Chloride 97 mmol/L (98-107); Glomerular Filtration Rate 121.4 mL/min (90-130); Glucose 341 mg/dL (65-115); Osmolality Calculated 290 mOsm/kg (285-295); Potassium 4.3 mmol/L (3.5-5.1); Sodium 133 mmol/L (136-145); Total Bilirubin 0.5 mg/dL (0.15-1.2); Total Protein 7.6 g/dL (6.6-8.7)
--- NOTE | 2022-07-28 17:59 | CTR_ITS ---
PROCEDURE INFORMATION: Exam: CT Right Lower Extremity With Contrast, Foot Exam date and time: 07/28/2022 6:41 PM Age: 46 years old Clinical indication: Cellulitis and edema; Location not specified; Foot; Right; Additional info: Cellulitis versus abscess R/O osteomyelitis TECHNIQUE: Imaging protocol: CT of the Right lower extremity with intravenous contrast was performed. Exam focused on the foot. Radiation optimization: All CT scans at this facility use at least one of these dose optimization techniques: automated exposure control; mA and/or kV adjustment per patient size (includes targeted exams where dose is matched to clinical indication); or iterative reconstruction. Contrast material: OMNIPAQUE 350; Contrast volume: 95 ml; Contrast route: INTRAVENOUS (IV); COMPARISON: CT foot RT w con [id number] 05/10/2022 7:58 AM RADIATION DOSE METRICS: Total DLP (mGy-cm): 156.53 FINDINGS: Bones/joints: Soft tissue ulcer on lateral side of the forefoot with diffuse soft tissue thickening. There is a small tubular tract of fluid with peripheral enhancement extending distal from the ulcer crater best seen on sagittal image 43 which extends about 3 cm longitudinal by 0.8 cm in width. Soft tissues: Diffuse soft tissue edema. Negative for soft tissue gas. Negative for soft tissue foreign body. Lucency through the proximal metaphysis of the 4th metatarsal bone with sclerotic borders may represent previous nonunion fracture. No acute fracture. Joint spaces have anatomic alignment. No aggressive osteolytic bone lesion. CT/CT foot RT w con [id number] IMPRESSION: 1. Soft tissue ulcer and cellulitis in the lateral forefoot with a small abscess present extending along the sinus tract. 2. Negative for osteomyelitis.
[2022-07-28] MEDS: iohexol 350 mg/mL 500 mL Btl (per mL) IV (19:05)
[2022-07-28 19:11] VITALS: BP 120/77; PULSE 86; RESP 14; O2SAT 97
--- NOTE | 2022-07-28 19:40 | W.ED.EXTPRO ---
HPI - Extremity Problem General: Chief complaint: Extremity Problem,Nontraumatic Stated complaint: foot infection Time Seen by Provider: 07/28/22 17:06 History of Present Illness: Patient is in today for a infection to his foot. He was sent over from wound care. Patient reports that he has been going to wound care for some time for an ulcer to his right foot. He reports that on Monday night it started looking worse becoming more red and swollen. He reports that last night it got significantly worse and he went to his wound care appointment today and they sent him to the ER and told him that he would likely need surgical debridement of the foot. Associated symptoms: Deny chest pain or fever(s) Review of Systems Const: Denies: fever(s) or chills Card: Denies: chest pain or palpitations Resp: Denies: dyspnea, productive cough or non-productive cough Skin/Breast: Reports: other (Redness, swelling, pain right foot extending up the elizabeth.) [facility] ED PFSH: Medical History Diabetic foot ulcer Hypertension Type 2 diabetes mellitus Surgical History History of hernia repair Umbilical Family History Other CAD (coronary artery disease) Social History Smoking and tobacco status: never smoked Alcohol intake: never Physical Exam Const: COMMON NORMALS: no acute distress, patient oriented x3 and alert Neck/C-Spine: COMMON NORMALS: no JVD Resp: COMMON NORMALS: normal respiratory effort and No use of accessory muscles Cardio: COMMON NORMALS: no JVD, regular rate, regular rhythm, S1 normal heart sound present and S2 normal heart sound present RATE: regular rate RHYTHM: regular rhythm HEART SOUNDS: S1 normal heart sound present and S2 normal heart sound present Extremity: NARRATIVE EXTREMITY EXAM: Patient with a chronic ulceration on his right plantar surface foot with significant erythema over the midfoot and extending up the ankle to the mid elizabeth. There is significant swelling about the midfoot and that lateral malleolus. Tender to palpation hot to touch. Pedal pulse is palpable. Neuro: COMMON NORMALS: patient oriented x3 SENSORIUM/ORIENTATION: Yes alert Course Vital Signs: Vital signs: Vital Signs Temperature 97.7 F 07/28/22 23:45 Pulse Rate 72 07/28/22 23:45 Respiratory Rate 15 07/28/22 23:45 Blood Pressure 106/66 07/28/22 23:45 Pulse Oximetry 97 07/28/22 23:45 Oxygen Delivery Me thod 07/28/22 23:45 MDM - Extremity (Nontraumatic) Medical Decision Making Consider cellulitis versus abscess versus osteomyelitis ESR and CRP are elevated. White blood cell count is within normal limits. Physical exam findings are consistent with cellulitis to the foot with extension of the ankle and the anterior elizabeth. CT scan shows soft tissue ulcer and cellulitis in the lateral forefoot with a small abscess present extending along the sinus tract. Negative for osteomyelitis. I called and spoke with Dr. Hernández, reserve operator, and he agreed that patient would benefit from inpatient admission with surgical debridement and washout while inpatient. He recommended admitting to hospitalist service and he would stay on as consult. I called and spoke with the hospitalist on-call, Dr. Moore, and she agreed to accept patient for admission. Patient's blood sugar elevated on arrival, but he states that he just ate Hungarian food prior to coming to the ER. He does not take insulin at home recheck POC glucose. Lab Data 07/28/22 17:20 07/28/22 17:20 Radiology Impressions Foot X-Ray 07/28/22 17:29 IMPRESSION: 1. Negative for osteomyelitis. 2. Increased soft tissue swelling. Foot CT 07/28/22 17:59 IMPRESSION: 1. Soft tissue ulcer and cellulitis in the lateral forefoot with a small abscess present extending along the sinus tract. 2. Negative for osteomyelitis. Laboratory Results WBC 8.1 10^3/uL (4.0-10.0) 07/28/22 17:20 RBC 4.88 10^6/uL (4.1-5.3) 07/28/22 17:20 Hgb 14.6 g/dL (11.7-16.6) 07/28/22 17:20 Hct 43.9 % (42.0-52.0) 07/28/22 17:20 MCV 90.0 fl (80-94) 07/28/22 17:20 MCH 29.9 pg (28.0-34.0) 07/28/22 17:20 MCHC 33.3 g/dL (30.0-36.0) 07/28/22 17:20 RDW 12.3 % (12.1-15.1) 07/28/22 17:20 Plt Count 214 10^3/cmm (130-400) 07/28/22 17:20 MPV 12.0 fL (7.4-10.4) H 07/28/22 17:20 Neut % (Auto) 56.5 % 07/28/22 17:20 Lymph % (Auto) 29.3 % 07/28/22 17:20 Thurston % (Auto) 12.1 % 07/28/22 17:20 Eos % (Auto) 1.1 % 07/28/22 17:20 Baso % (Auto) 0.5 % 07/28/22 17:20 Neut # (Auto) 4.57 10^3/uL (1.8-7.7) 07/28/22 17:20 Lymph # (Auto) 2.4 10^3/uL (0.8-4.8) 07/28/22 17:20 Thurston # (Auto) 1.0 10^3/uL (0.2-0.9) H 07/28/22 17:20 Eos # (Auto) 0.1 10^3/uL (0.0-0.8) 07/28/22 17:20 Baso # (Auto) 0.0 10^3/uL (0.0-0.1) 07/28/22 17:20 Nucleated RBC % (auto) 0 % 07/28/22 17:20 Nucleated RBCs # 0.0 /100WBC 07/28/22 17:20 ESR 17 mm/hr (0-10) H 07/28/22 17:20 Sodium 133 mmol/L (136-145) L 07/28/22 17:20 Potassium 4.3 mmol/L (3.5-5.1) 07/28/22 17:20 Chloride 97 mmol/L (98-107) L 07/28/22 17:20 Carbon Dioxide 26 mmol/L (22-29) 07/28/22 17:20 Anion Gap 14.3 (5-19) 07/28/22 17:20 BUN 15 mg/dL (6-20) 07/28/22 17:20 Creatinine 0.7 mg/dL (0.7-1.2) 07/28/22 17:20 GFR Calculation 121.4 mL/min (90-130) 07/28/22 17:20 Glucose 341 mg/dL (65-115) H 07/28/22 17:20 Calculated Osmolality 290 mOsm/kg (285-295) 07/28/22 17:20 Calcium 9.5 mg/dL (8.5-10.5) 07/28/22 17:20 Total Bilirubin 0.5 mg/dL (0.15-1.2) 07/28/22 17:20 AST 13 U/L (0-40) 07/28/22 17:20 ALT 13 U/L (0-41) 07/28/22 17:20 Alkaline Phosphatase 116 U/L (40-130) 07/28/22 17:20 C-Reactive Protein 179.0 mg/L (0.0-4.9) H 07/28/22 17:20 Total Protein 7.6 g/dL (6.6-8.7) 07/28/22 17:20 Albumin 3.6 g/dL (3.5-5.2) 07/28/22 17:20 Globulin 4.0 g/dL (1.3-4.6) 07/28/22 17:20 Discharge Plan Discharge Patient Disposition: Admitted As Inpatient Admit Provider: Jing Moore Clinical Impression: Abscess of right foot, Cellulitis, Type 2 diabetes mellitus Condition: Stable Coding Level of Care Code ED [employer] for Chg Fwd Exam Expanded Problem Focused
--- NOTE | 2022-07-28 19:58 | P.HP_ITS ---
Providers/Chief Complaint Primary Care Provider: ERICH Schafer Chief Complaint: foot infection History of Present Illness Asif Guerra is a 46 year old male with past medical history of diabetic foot ulcer, hypertension, type 2 diabetes mellitus not insulin-dependent presented to the hospital today after being sent over from wound care clinic. Patient states he has been dealing with this wound since last 3 years. It started off as a little cut and then developed into an ulcer. He had debridement done this year by Dr. Orozco as well and was following up with wound care clinic. Patient states that Monday night the wound started getting worse and he went to the appointment today and was told to come to the hospital likely needing surgical debridement of the foot. On arrival blood glucose 341. CT foot was obtained which showed soft tissue ulcer and cellulitis in lateral forefoot with small abscess present extending along sinus tract. Negative for osteomyelitis. ESR CRP level elevated. Case discussed with Dr. Hernández from podiatry who plans to take patient for surgical debridement and washout to the OR in the morning. Patient started on ciprofloxacin and clindamycin as per podiatry. Patient's blood glucose is 341 on arrival however he recently ate Belgian food. Denies chest pain, shortness of breath, abdominal pain, diarrhea, nausea, vomiting, headache, fever. Patient states his blood sugars are usually 1 50-1 60 range postmeal at home. He has no other symptoms at this time that he reports. Medications/Allergies Home Medications Medication Instructions Recorded Confirmed Last Taken Type AFO to the right #1 ea 12/28/21 06/02/22 Unknown Rx Extra Depth Diabetic Shoes with #1 ea 12/28/21 06/02/22 Unknown Rx Custom Molded Orthotics albuterol sulfate 90 mcg/actuation 2 puff inhalation Q4H PRN 05/10/22 07/28/22 Unknown History aerosol inhaler Shortness Of Breath ibuprofen 200 mg tablet (Advil) 400 mg PO Q6H PRN Pain 05/10/22 07/28/22 Unknown History lisinopril 10 mg tablet 10 mg PO DAILY@23 05/10/22 07/28/22 07/27/22 History blood sugar diagnostic (Blood #50 ea 05/17/22 06/02/22 Unknown Rx Glucose Test strips) blood-glucose meter (Blood Glucose #1 ea 05/17/22 06/02/22 Unknown Rx Monitoring kit) glipizide 10 mg tablet 10 mg PO DAILY #90 tabs 05/17/22 07/28/22 07/27/22 Rx metformin 500 mg tablet 500 mg PO BID #60 tabs 05/17/22 07/28/22 07/27/22 Rx Diabetic shoes #1 ea 06/02/22 06/02/22 Unknown Rx doxycycline hyclate 100 mg capsule See Rx Instructions .Route 06/20/22 07/28/22 07/27/22 Rx .COMPLEX #28 caps Allergies Allergy/AdvReac Type Severity Reaction Status Date / Time No Known Allergies Allergy Verified 06/02/22 14:49 PFSH Acute PFSH: Medical History Diabetic foot ulcer Hypertension Type 2 diabetes mellitus Surgical History History of hernia repair Umbilical Family History Other CAD (coronary artery disease) Social History Smoking and tobacco status: never smoked Alcohol intake: never Vitals/I&O/Wt Last Vital Signs Temp 98.9 F 07/28/22 15:55 Pulse 86 07/28/22 19:11 Resp 14 07/28/22 19:11 BP 120/77 07/28/22 19:11 Pulse Ox 97 07/28/22 19:11 O2 Del Method 07/28/22 15:55 Weight last 48 hrs Weight 124.738 kg Physical Exam Narrative: General: Alert oriented x3, patient seen laying in bed. No acute distress. HEENT: Normocephalic, atraumatic, EOMI, breathing normally Cardio: Regular rate rhythm, normal S1-S2, Respiratory: CTA bilaterally no wheezes or rhonchi. GI: Abdomen soft, nontender, nondistended, bowel sounds + Extremities: Chronic ulceration on right plantar surface with significant erythema over midfoot. Erythema extends all the way up to the ankle and mid elizabeth area. There is significant swelling present. Foot is tender to palpation and warm to touch. Pedal pulses are palpable. Please see image below. Data 07/28/22 17:20 07/28/22 17:20 A&P Assessment and plan (1) Abscess of right foot: (2) Hypertension: (3) Diabetic foot ulcer: (4) Type 2 diabetes mellitus: (5) Cellulitis: (6) Diabetic ulcer of foot associated with diabetes mellitus due to underlying condition, limited to breakdown of skin: Plan #Diabetic foot wound with abscess right foot #Cellulitis of right foot extending to mid leg #Diabetes mellitus, [id number] #Hypertension ? Check hemoglobin A1c ? CT foot shows soft tissue ulcer and cellulitis in lateral forefoot with small abscess present extending along the sinus tract ? ESR 17, CRP 179 ? Cipro + clinda ? Hold glipizide ? Sliding scale insulin moderate intensity - Check HBA1c - Will need tight glucose control and optimization. May need to start insulin at discharge. ? Hold metformin at this time ? Normal saline 100 cc/h ? Check blood cultures ? Continue to monitor vitals ? N.p.o. at midnight - Consult podiatry. -Partial weightbearing to right heel for transfers while inpatient -Wound care to be performed by podiatry service while inpatient - Wound cultures to be obtained Full code DVT prophylaxis: Lovenox Attestations Medical Necessity Statement*: Observation admission for foot cellulitis and abscess. Wound debridement in a.m. Coding Level of Care Code Acute Surveillance Manager for [facility] Fwd Diagnoses Abscess of right foot L02.611 Hypertension I10 Diabetic foot ulcer E11.621; L97.509 Type 2 diabetes mellitus E11.9 Cellulitis L03.90 Diabetic ulcer of foot associated with diabetes mellitus due to underlying condition, limited to breakdown of skin E08.621; L97.501
[2022-07-28 20:11] LABS: Glucose Point of Care 269 mg/dL (70-110)
[2022-07-28 20:15] VITALS: BP 122/73; PULSE 82; RESP 14; TEMP 36.8; O2SAT 95
--- NOTE | 2022-07-28 20:27 | P.CONIM_ITS ---
Providers/Reason For Consult Consulting Physician/Specialty*: Podiatry Reason for Consult*: Right foot abscess Attending Physician: Jing Moore MD Primary Care Provider: ERICH Schafer History of Present Illness History of Present Illness Asif Guerra is a 46 year old male who presents emergency department with right foot full-thickness ulceration and underlying abscess with cellulitis extending to the mid leg. Patient has been dealing with chronic ulcer to the right lower extremity for some time now. He has seen multiple providers in the past and is currently seeing natural resources specialist on a weekly basis. Patient was seen at wound care today and was noted to have worsened infection to the right lower extremity with suspected abscess with cellulitis extending pro ximally to the mid leg. The patient's natural resources specialist, Kim Church reached out to myself, Dr. Hernández today to discuss the case. I advised the patient to go to the emergency department for work-up and evaluation and admission. The patient states that his wound has worsened over the course the past week. He has a new lesion on the top of the right foot that he says has popped up in the past 24 hours. Patient endorses general feelings of malaise but no subjective fever, chills, nausea, vomiting. Patient does have history of type 2 diabetes, peripheral neuropathy. Review of Systems General: Reports: 10 or more systems reviewed and unremarkable except in HPI and below Const: Denies: fever(s), chills, body aches or change in appetite Eyes: Denies: change in vision or blurry vision Card: Denies: chest pain, palpitations or irregular heart rhythm Resp: Denies: dyspnea GI: Denies: abdominal pain, nausea, vomiting or diarrhea Musc: Reports: joint stiffness Skin/Breast: Reports: non-healing lesions and lesions Neuro: Reports: numbness in extremities Medications/Allergies Home Medications Medication Instructions Recorded Confirmed Last Taken Type AFO to the right #1 ea 12/28/21 06/02/22 Unknown Rx Extra Depth Diabetic Shoes with #1 ea 12/28/21 06/02/22 Unknown Rx Custom Molded Orthotics albuterol sulfate 90 mcg/actuation 2 puff inhalation Q4H PRN 05/10/22 06/02/22 Unknown History aerosol inhaler Shortness Of Breath ibuprofen 200 mg tablet (Advil) 400 mg PO Q6H PRN Pain 05/10/22 06/02/22 Unknown History lisinopril 10 mg tablet 10 mg PO DAILY@23 05/10/22 06/02/22 05/09/22 History blood sugar diagnostic (Blood #50 ea 05/17/22 06/02/22 Unknown Rx Glucose Test strips) blood-glucose meter (Blood Glucose #1 ea 05/17/22 06/02/22 Unknown Rx Monitoring kit) glipizide 10 mg tablet 10 mg PO DAILY #90 tabs 05/17/22 06/02/22 Unknown Rx metformin 500 mg tablet 500 mg PO BID #60 tabs 05/17/22 06/02/22 Unknown Rx Diabetic shoes #1 ea 06/02/22 06/02/22 Unknown Rx doxycycline hyclate 100 mg capsule See Rx Instructions .Route 06/20/22 Unknown Rx .COMPLEX #28 caps Allergies Allergy/AdvReac Type Severity Reaction Status Date / Time No Known Allergies Allergy Verified 06/02/22 14:49 PFSH Acute PFSH: Medical History Diabetic foot ulcer Hypertension Type 2 diabetes mellitus Surgical History History of hernia repair Umbilical Family History Other CAD (coronary artery disease) Social History Smoking and tobacco status: never smoked Alcohol intake: never Vitals/I&O/Wt Last Vital Signs Temp 98.9 F 07/28/22 15:55 Pulse 86 07/28/22 19:11 Resp 14 07/28/22 19:11 BP 120/77 07/28/22 19:11 Pulse Ox 97 07/28/22 19:11 O2 Del Method 07/28/22 15:55 Weight last 48 hrs Weight 275 lb Physical Exam Narrative: GENERAL: A&O x 3 VASCULAR: DP/PT pulses palpable 2/4 with CFT intact, <3seconds to distal digits. Moderate edema to right foot extending from the metatarsophalangeal joints to the level of the ankle joint. DERMATOLOGICAL: Diffuse erythema to dorsum of right foot extending to the level of the right mid tibia stemming from right foot fifth metatarsal full-thickness ulceration. Wound #1 Location: Plantar aspect right fifth metatarsal head Size: 1.5 x 3.0 x 2.5 cm Undermining: Negative Tracking: Tracks dorsally 2.5 cm Probe to bone: Negative Borders: Hyperkeratotic Base: 75% fibrotic, 25% granular Drainage: Positive serosanguineous drainage Malodor: Negative Wound #2 Location: Lateral right foot fifth metatarsal head Size: 1.0 x 1.0 x 2.5 cm Undermining: Negative Tracking: Tracks 2.5 cm plantarly to connect with wound #1 Probe to bone: Negative Borders: Necrotic/fibrotic Base: 100% fibrotic Drainage: Positive serosanguineous drainage Malodor: Negative MUSCULOSKELETAL: Tenderness with palpation of right lateral forefoot. Ulceration area NEUROLOGICAL: Neurological sensation to the affected foot and ankle is diminished through L4-S1 dermatomes via 10g SWMF, diminished sensation extends proximally to the level of the midfoot IMAGIN view x-rays of the right foot taken in the emergency department were personally interpreted by me which show increased off tissue density to the lateral aspect of the right foot at the level of the fifth metatarsal neck with soft tissue deficit consistent with clinical ulceration no subcutaneous emphysema noted. No periosteal or cortical erosions noted. Midfoot osteoarthritis visualized. CT scan of the right foot with and without contrast was taken in the emergency department personally interpreted by me which show fluid collection to the lateral aspect of the fifth metatarsal head stemming from the soft tissue defect which correlates clinically with the ulceration, indicating probable abscess. No cortical erosions or signs of osteomyelitis visualized. No subcutaneous emphysema noted. Data 07/28/22 17:20 07/28/22 17:20 A&P Assessment and plan (1) Diabetic foot ulcer: (2) Abscess of right foot: (3) Type 2 diabetes mellitus: (4) Cellulitis: Plan -Right foot full-thickness ulceration with underlying abscess -Patient seen and evaluated, labs and vitals reviewed -WBC 8.1 -ESR 17 -CRP 179 -VSS -Antibiotics: Clinda/Cipro -N.p.o. at midnight for procedure 07/29/2022 at 7 AM -Plan for right foot incision and drainage 07/29/2022 -Continue broad-spectrum IV antibiotics -Partial weightbearing to right heel for transfers while inpatient -Wound care to be performed by podiatry service while inpatient -Anticipate that given the extent of infection patient will remain inpatient for the coming days until wound stabilizes -I will discuss with hospitalist Consult Attestations Medical Necessity Statement: See above Coding Level of Care Code Acute Production Consultant for [facility] Fwd Diagnoses Diabetic foot ulcer E11.621; L97.509 Abscess of right foot L02.611 Type 2 diabetes mellitus E11.9 Cellulitis L03.90
[2022-07-28 20:58] VITALS: BMI 37.0
[2022-07-28] MEDS: sodium chloride 0.9% 1,000 ML 100 ML IV (21:17)
[2022-07-28] MEDS: ciprofloxacin 400 MG/200 ML PREMIX 200 MG IV (21:17)
[2022-07-28] MEDS: enoxaparin 40 mg/0.4 mL Syringe SUBCUT (21:17)
[2022-07-28 21:26] LABS: Lactic Sepsis W/Reflex 1.6 mmol/L (0.5-2.2)
[2022-07-28 21:31] LABS: Estmated Average Glucose 255; Hemoglobin A1C 10.5 % (4.0-6.0)
[2022-07-28 21:38] LABS: Procalcitonin 0.15 ng/mL (0-0.5)
[2022-07-28] MEDS: clindamycin 600 MG/50 ML PREMIX 100 MG IV (22:35)
[2022-07-28 23:45] VITALS: BP 106/66; PULSE 72; RESP 15; TEMP 36.5; O2SAT 97
[2022-07-29] VITALS (10 sets, daily range): BP systolic 105–139; BP diastolic 62–98; PULSE 67–86; RESP 13–18; TEMP 36.1–37.3; O2SAT 95–100
[2022-07-29 04:57] LABS: Basophils % 0.4 %; Eosinophils # 0.1 10^3/uL (0.0-0.8); Eosinophils % 1.5 %; Hematocrit 39.3 % (42.0-52.0); Hemoglobin 13.2 g/dL (11.7-16.6); Lymphocytes # 1.9 10^3/uL (0.8-4.8); Lymphocytes % 28.1 %; Mean Corpuscular HGB Conc 33.6 g/dL (30.0-36.0); Mean Corpuscular Hemoglobin 30.1 pg (28.0-34.0); Mean Corpuscular Volume 89.7 fl (80-94); Mean Platelet Volume 11.7 fL (7.4-10.4); Monocytes # 1.1 10^3/uL (0.2-0.9); Monocytes % 16.3 %; Neutrophils # 3.57 10^3/uL (1.8-7.7); Neutrophils % 53.1 %; Nucleated Red Blood Cells % 0 %; Platelet Count 185 10^3/cmm (130-400); Red Blood Count 4.38 10^6/uL (4.1-5.3); Red Cell Distribution Width 12.1 % (12.1-15.1); White Blood Count 6.7 10^3/uL (4.0-10.0)
[2022-07-29 05:15] LABS: Anion Gap 12.1 (5-19); Blood Urea Nitrogen 12 mg/dL (6-20); Calcium 8.5 mg/dL (8.5-10.5); Carbon Dioxide 27 mmol/L (22-29); Chloride 101 mmol/L (98-107); Glucose 240 mg/dL (65-115); Magnesium 1.8 mg/dL (1.7-2.3); Osmolality Calculated 290 mOsm/kg (285-295); Potassium 4.1 mmol/L (3.5-5.1); Sodium 136 mmol/L (136-145)
[2022-07-29 06:31] LABS: Glucose Point of Care 234 mg/dL (70-110)
--- NOTE | 2022-07-29 06:50 | W.PM.OPSUD ---
Surgery/Procedure H&P Update DATE OF PROCEDURE: July 29, 2022 DATE H&P PERFORMED: 07/28/22 CHANGES TO PREVIOUS DOCUMENTATION: no changes PRIMARY INDICATION FOR PROCEDURE: right foot abscess PLANNED PROCEDURE: Operation Date: 07/29/22 07:10 Proposed Procedures p Incision And Drainage of Right Foot(Right) - Kodak Hernández DPM
[2022-07-29] MEDS: sodium chloride 0.9% 1,000 ML 30 ML IV (06:54)
--- NOTE | 2022-07-29 06:58 | SUR.PREOP ---
ordered ON-CALL antibiotic for surgery 07/29/2022. Antibiotic was administered by floor nurse 07/28/2022.
--- NOTE | 2022-07-29 07:37 | ANES.PREANE2 ---
Pre-Anesthetic Assessment Height/Weight: Height 1.83 m Weight 124.058 kg Temp Pulse Resp BP Pulse Ox O2 Del Method 97.2 F L 73 18 126/85 98 07/29/22 06:31 07/29/22 06:31 07/29/22 06:31 07/29/22 06:31 07/29/22 06:31 07/29/22 06:31 Operation Date: 07/29/22 07:10 Proposed Procedures p Incision And Drainage of Right Foot(Right) - Kodak Hernández DPM Familial anesthetic complications: none Was Beta Thi taken within 24 hours: N/A Was Clonidine taken within 24 hours: N/A Last intake: Intake Last Liquid Date 07/28/22 Last Solid Date 07/28/22 Social No alcohol and No tobacco Exam alert, oriented x 3, clear to auscultation bilaterally and regular rate & rhythm Airway Submandibular: within normal limits Cervical ROM: within normal limits Mallampati: Class II Dentition: chipped CV/HEM Hypertension Metabolic Diabetes Mellitus and Morbid Obesity Neuropsych Neuropathy Anesthetic Plan ASA status: 3 Anesthesia: Choice Medications/Allergies Home Medications Medication Instructions Recorded Confirmed Last Taken Type AFO to the right #1 ea 12/28/21 06/02/22 Unknown Rx Extra Depth Diabetic Shoes with #1 ea 12/28/21 06/02/22 Unknown Rx Custom Molded Orthotics albuterol sulfate 90 mcg/actuation 2 puff inhalation Q4H PRN 05/10/22 07/28/22 Unknown History aerosol inhaler Shortness Of Breath ibuprofen 200 mg tablet (Advil) 400 mg PO Q6H PRN Pain 05/10/22 07/28/22 Unknown History lisinopril 10 mg tablet 10 mg PO DAILY@23 05/10/22 07/28/22 07/27/22 History blood sugar diagnostic (Blood #50 ea 05/17/22 06/02/22 Unknown Rx Glucose Test strips) blood-glucose meter (Blood Glucose #1 ea 05/17/22 06/02/22 Unknown Rx Monitoring kit) glipizide 10 mg tablet 10 mg PO DAILY #90 tabs 05/17/22 07/28/22 07/27/22 Rx metformin 500 mg tablet 500 mg PO BID #60 tabs 05/17/22 07/28/22 07/27/22 Rx Diabetic shoes #1 ea 06/02/22 06/02/22 Unknown Rx doxycycline hyclate 100 mg capsule See Rx Instructions .Route 06/20/22 07/28/22 07/27/22 Rx .COMPLEX #28 caps Allergies Allergy/AdvReac Type Severity Reaction Status Date / Time No Known Allergies Allergy Verified 06/02/22 14:49 Current Medications Generic Name Dose Route Start Last Admin Trade Name Maye PRN Reason Stop Dose Admin Enoxaparin Sodium 40 mg 07/28/22 20:15 07/28/22 21:17 Enoxaparin 40 Mg/0.4 Ml Syringe SUBCUT 40 mg Q24H TACHO Administration Sodium Chloride 1,000 mls @ 100 mls/hr 07/28/22 20:15 07/28/22 21:17 Sodium Chloride 0.9% IV 100 mls/hr .Q10H TACHO Administration Sodium Chloride 1,000 mls @ 30 mls/hr 07/29/22 07:00 07/29/22 06:54 Sodium Chloride 0.9% IV 07/30/22 06:59 30 mls/hr .Q24H TACHO Administration PFSH Anesthesia Medical History Diabetic foot ulcer Hypertension Type 2 diabetes mellitus Surgical History History of hernia repair Umbilical Family History Other CAD (coronary artery disease) Social History Smoking and tobacco status: never smoked Alcohol intake: never Data Anesthesia 07/29/22 04:43 07/29/22 04:43 Short CBC 07/28/22 07/29/22 Range/Units 17:20 04:43 WBC 8.1 6.7 (4.0-10.0) 10^3/uL Hgb 14.6 13.2 (11.7-16.6) g/dL Hct 43.9 39.3 L (42.0-52.0) % MCV 90.0 89.7 (80-94) fl Plt Count 214 185 (130-400) 10^3/cmm Neut % (Auto) 56.5 53.1 % Neut # (Auto) 4.57 3.57 (1.8-7.7) 10^3/uL BMP 07/28/22 07/29/22 17:20 04:43 Sodium 133 L 136 Potassium 4.3 4.1 Chloride 97 L 101 Carbon Dioxide 26 27 BUN 15 12 Creatinine 0.7 0.6 L Glucose 341 H 240 H Calcium 9.5 8.5 Liver Function 07/28/22 Range/Units 17:20 Total Bilirubin 0.5 (0.15-1.2) mg/dL AST 13 (0-40) U/L ALT 13 (0-41) U/L Alkaline Phosphatase 116 (40-130) U/L Albumin 3.6 (3.5-5.2) g/dL Coags 07/28/22 07/28/22 17:20 17:20 ESR 17 H C-Reactive Protein 179.0 H Microbiology 07/28/22 20:45 Blood Culture - Preliminary Blood SPECIMEN COLLECTED 07/28/22 20:45 Blood Culture - Preliminary Blood SPECIMEN COLLECTED Cardiac Studies: No Data to Display
--- NOTE | 2022-07-29 07:42 | SUR.PHASEI ---
0733 PT TO PACU 5 WITH ORAL AIRWAY IN PLACE NO S/S OF PAIN MONITOR SR WITH NO ECTOPY, IV TO LT WRIST WITH NS 700ML UP AT KVO RATE PER GRAVITY, RT FOOT ELEVATED PER BED SOFT DRESSING NOTED WITH NO DRAINAGE SURGICAL SHOE IN PLACE DISTAL TOES PINK WARM WITH CAP REFILL LESS THAN 3 SECONDS, PT DIAPHORETIC, BLANKETS OFF, COOL CLOTH TO FORE HEAD, 0735 ORAL AIRWAY OUT PER REPAIR SERVICE CLERK AT [facility], GOOD RESP EFFORT NOTED VSS SATS 100% PT MOVES TO TOUCH BUT DOES NOT AWAKE.
--- NOTE | 2022-07-29 07:43 | P.OP_ITS ---
Operative Report Date of procedure: July 29, 2022 Pre-op diagnosis: Right foot abscess Post-op diagnosis: Right foot abscess Post-op findings: Well-circumscribed abscess to lateral aspect of right fifth metatarsal head stemming from plantar fifth metatarsal head wound. Surrounding tissue was devitalized and necrotic with parker discoloration. 5 cc of juan carlos purulence drained from the lateral aspect of the right foot. No bone exposure. Negative probe to bone negative probe to capsule. Procedure done: Right foot incision and drainage CPT 00484 Surgeon: Kodak Hernández D.P.M. Estimated blood loss: 10 cc Complications: None Findings: See above Brief History: Patient is a 46-year-old male that has a history of type 2 diabetes, peripheral neuropathy and chronic ulceration to plantar aspect of fifth metatarsal right foot. The patient has had the aforementioned chief complaint for some time. Conservative treatment measures including wound care have been attempted. The patient's wound significantly worsened over the course the past week especially over the past 24 hours with a new wound appearing on the dorsum of the right foot with likely abscess. Patient was admitted to the hospital for IV antibiotics and surgical incision and drainage. A lengthy discussion regarding the procedure, including risks and complications has been had with the patient and is noted in the recent clinic note. Written and verbal consent have been obtained. All patient questions have been answered to the patient?s satisfaction. No written or verbal guarantees have been given or implied. Procedure: The patient has been NPO since midnight. The history has been reviewed and the history and physical is current. The signed consent was confirmed and placed in the patient chart. Patient imaging has been reviewed and is consistent with thediagnosis. Under mild sedation, the patient was brought into the operating room and left on the gurney in the supine position. IV sedation was then performed by the anesthesia team. A pneumatic tourniquet was then placed about the right ankle. The operative extremity was then prepped and draped in the usual fashion. A local field block was then performed using 0.5% Marcaine plain. After prep, the following procedure was then performed. Attention was directed to the lateral aspect of the right foot where there was noted to be a full-thickness ulceration to the plantar aspect of the fifth metatarsal head measuring 2.0 cm circumferentially with hyperkeratotic border, high percent fibrotic base and active serosanguineous drainage. The depth of the ulceration was noted to probe to the dorsum of the foot connecting with a second ulceration measuring 0.5 cm circumferentially. Upon probing the area with a [place] juan carlos purulence began coming from the dorsal wound. A #15 blade was used to make a full-thickness incision connecting the 2 wounds. The underlying subcutaneous tissue was noted to be parker in discoloration and devitalized. There was noted to be approximately 5 cc of juan carlos purulence within this area. Both aerobic and anaerobic cultures were taken of the purulence at this time. A rongeur was then used to remove all devitalized subcutaneous tissue. The margins of the wound were probed and there was not any proximal, dorsal or plantar tracking outside of the aforementioned wounds. The foot was expressed and no further purulence was noted to be coming from the site. Site was then irrigated with copious amounts of sterile saline via cystoscopy tubing. After irrigation, the wound was packed with 1/4 inch iodoform packing gauze dressed with 4 x 4 gauze, ABD pad Kerlix and Mitesh bandage. The tourniquet was let down good hyperemic response was noted to all digits of the right foot. Hemostasis was achieved. The patient tolerated the procedure and anesthesia well and without c omplication. The patient was transported from the operating room to the recovery room with vital signs stable and vascular status intact to all digits of the right foot. The patient was instructed to remain partial weightbearing to right heel for transfers, to keep surgical dressing clean, dry and intact. The patient will be transferred back to the floor once anesthesia criteria is met. I will continue to round on and follow the patient in the inpatient setting and provide recommendations to stabilize the patient for discharge. Wound was left open in the operating room today to allow for further drainage. Depending on response to IV antibiotic therapy as well as tissue improvement, anticipate delayed primary closure in coming days.
[2022-07-29] MEDS: sodium chloride 0.9% 1,000 ML 100 ML IV ×2 (08:22→19:27)
[2022-07-29] MEDS: pantoprazole DR 40 mg Tablet PO (08:22)
--- NOTE | 2022-07-29 08:40 | PC.PHAR ---
pt states he takes care of his own medications-rx filled 06/29/22 14d/s for doxycycline hyclate 100mg bid pt states he was just taking one cap daily but the last 3 days he was taking one cap bid pt states ran out 07/28/22 so took one of his mothers amoxil 500mg once-
[2022-07-29] MEDS: piperacillin-tazobactam 3.375 GM in sodium chloride 0.9% (plus) 50 ML IV ×2 (09:35→17:09)
--- NOTE | 2022-07-29 11:20 | PC.CHAP ---
Pastoral Care Encounter/Spiritual Assessment Type of Contact [] Declined senior mechanical design engineer visit [] Patient/Family/Request visit [] Outpatient visit [] Follow-up visit [] Physician referral [] Code/Alert [x] Routine visit [] Staff referral [] Actively dying [] Patient sleeping [] Family support [] [] Out of room [] Palliative care [] [x] Receiving care in room [] Pre-surgical visit [] Trauma [] Long length of stay [] ICU visit [] Other: Relational/Emotional Strength [x] Patient feels connected with others/family/visitors/staff [] Distress [] Loneliness/isolation [] Abandonment Spirituality of Patient [x] Person of Danna [] Attends Jewish of their Danna [x] Believes in Prayer [] Reads Bible or Gnosticism materials [] There are Spiritual issues to be addressed Pencil Maker Interventions [x] Prayer [] Active listening [] Non-anxious presence [] Spiritual/emotional support [] Crisis/trauma care [] Spiritual counseling [] Bereavement support [] Provided bereavement packet [x] Provided Bible/devotional materials [] Provided toy/stuffed animal, coloring book to patient or family member [] Provided Communion [] Anointing/[place] [] Salvation [x] Completed spiritual assessment [] Other: Impact on Illness or Injury [] Angry [] Fearful [] Anxious [] Often cries [] Exhaustion [] Unable to work [] Unable to attend latter-day [] Unable to walk/stand [] Unable to read [] Unable to drive [] Unable to eat/drink [] Unable to sleep [] Unable to be with family [] Patient intubated [] Other: Summary Time spent with patient 15 min
[2022-07-29 12:01] LABS: Glucose Point of Care 361 mg/dL (70-110)
[2022-07-29] MEDS: insulin lispro 100 unit/1 mL SUBCUT ×2 (12:19→21:03)
--- NOTE | 2022-07-29 13:38 | MR_ITS ---
WS: [id number] MRI RIGHT FOOT with and without CONTRAST. COMPARISON: CT 07/28/2022 and prior foot radiograph 07/28/2022 Multiplanar, multisequence imaging is performed with and without contrast. MultiHance 20 mL IV. There is extensive edema involving the small muscles throughout the foot. Greatest amount of edema is in the lateral foot surrounding the fifth metatarsal and metatarsophalangeal joint. There is a large soft tissue ulceration over the lateral foot at the level of the distal fifth metatarsal. This ulcer ation tract measures at least 3.3 cm by with a 1.2 cm. Tract extends from the lateral plantar surface of the foot to the dorsal surface. On the postcontrast examination there is significant diffuse enha ncement involving the soft tissues of the foot. Greatest surrounding the fifth metatarsophalangeal luther int. Mild enhancement along the tract and there is a very tiny collection measuring 5 mm which may be a small abscess pocket just lateral to the fifth metatarsal head. There is very minimal enhancement in the fifth metatarsal head. Loss of the normal cortex involving t he medial and lateral aspects of the fifth metatarsal head. The remaining metatarsals demonstrate no evidence for osteomyelitis. IMPRESSION: 1. Severe diffuse cellulitis of the soft tissues and small muscles of the foot. 2. Soft tissue tract ulceration measures 3.3 x 1.2 cm. This tract extends to abut the distal fifth m etatarsal. 3. Most significant findings of enhancement and cellulitis surrounding the distal fifth metatarsal a nd fifth metatarsophalangeal joint. There is a very tiny 5 mm abscess pocket lateral to the fifth met atarsal head. 4. Very subtle changes of enhancement in the fifth metatarsal head. Suspicious for developing osteom yelitis. Loss of the normal cortex.
--- NOTE | 2022-07-29 13:43 | P.PN_ITS ---
Subjective Subjective: He is doing well postoperatively. Denies any pain. Vitals/I&O/Wt Last Vital Signs Temp 98 F 07/29/22 11:18 Pulse 86 07/29/22 11:18 Resp 17 07/29/22 11:18 BP 126/76 07/29/22 11:18 Pulse Ox 97 07/29/22 11:18 O2 Del Method 07/29/22 07:51 O2 Flow Rate 6 07/29/22 07:40 07/28/22 07/29/22 07/29/22 22:59 06:59 14:59 Intake Total 200 / 200 50 / 250 1425.5 / 1425.5 Output Total 5 / 5 Balance 200 / 200 50 / 250 1420.5 / 1420.5 Weight last 48 hrs Weight 124.058 kg Weight 124.738 kg Physical Exam Narrative: Family at bedside. Const: COMMON NORMALS: patient oriented x3 and alert GENERAL APPEARANCE: cooperative ORIENTATION/CONSCIOUSNESS: Yes awake HENMT: COMMON NORMALS: oropharynx normal Neck/C-Spine: COMMON NORMALS: no JVD Resp: COMMON NORMALS: normal respiratory effort and clear to auscultation bilaterally AUSCULTATION: clear to auscultation bilaterally Cardio: COMMON NORMALS: no JVD, regular rhythm, S1 normal heart sound present, S2 normal heart sound present and No murmurs present (Cardio) RHYTHM: regular rhythm HEART SOUNDS: S1 normal heart sound present and S2 normal heart sound present GI: COMMON NORMALS: Normal to inspection, nondistended, normoactive bowel sounds present, Soft to palpation and non-tender PALPATION: Yes Soft to palpation Extremity: COMMON NORMALS: no joint enlargement and no pedal edema Neuro: COMMON NORMALS: patient oriented x3 and moves all extremities SENSORIUM/ORIENTATION: Yes alert Skin: COMMON NORMALS: no rashes or lesions noted GENERAL SKIN EXAM: no rashes or lesions noted Data 07/29/22 04:43 07/29/22 04:43 Micro: Microbiology 07/28/22 20:45 Blood Culture - Preliminary Blood SPECIMEN COLLECTED 07/28/22 20:45 Blood Culture - Preliminary Blood SPECIMEN COLLECTED A&P Assessment and plan (1) Abscess of right foot: Status post I&D abscess right foot. Continue Zosyn, vancomycin. Reassessment by podiatry. MRI right foot to assess for any early osteomyelitis. No advanced osteomyelitis seen on CT. (2) Diabetic ulcer of foot associated with diabetes mellitus due to underlying condition, limited to breakdown of skin: As above (3) Diabetic foot ulcer: As above (4) Type 2 diabetes mellitus: (5) Cellulitis: Zosyn, vancomycin. (6) Hypertension: Plan Full code DVT prophylaxis: Lovenox Attestations Medical Necessity Statement*: Admission for assessment diabetic foot wound, abscess status post I&D, IV antibiotics, podiatry reassessment, assessment for osteomyelitis. Coding Level of Care Code Acute Mental Tester for [facility] Fwd Exam Comprehensive Diagnoses Abscess of right foot L02.611 Diabetic ulcer of foot associated with diabetes mellitus due to underlying condition, limited to breakdown of skin E08.621; L97.501 Diabetic foot ulcer E11.621; L97.509 Type 2 diabetes mellitus E11.9 Cellulitis L03.90 Hypertension I10
--- NOTE | 2022-07-29 15:36 | ANE.PACU2 ---
Inpatient post-anesthesia follow up: Airway intact: Yes Vital signs: Temperature 98 F Pulse Rate 86 Respiratory Rate 17 Blood Pressure 126/76 Pulse Oximetry 97 Oxygen Delivery Me thod Room Air Oxygen Flow Rate 6 Fraction of Inspir ed Oxygen Hydration adequate: Yes Nausea and vomiting: No Pain level: 2 Mental status: Baseline
[2022-07-29] MEDS: gadobenate dimeglumine 20 mL vial IV (15:40)
[2022-07-29 17:22] LABS: Glucose Point of Care 177 mg/dL (70-110)
[2022-07-29] MEDS: HYDROcodone-acetaminophen 5-325 mg Tablet 1 TAB PO (19:26)
[2022-07-29] MEDS: enoxaparin 40 mg/0.4 mL Syringe SUBCUT (19:27)
[2022-07-29] MEDS: insulin glargine 100 units/1 mL 10 UNIT SUBCUT (21:03)
[2022-07-29 21:21] LABS: Glucose Point of Care 252 mg/dL (70-110)
[2022-07-30] VITALS (8 sets, daily range): BP systolic 119–135; BP diastolic 73–85; PULSE 53–79; RESP 16–20; TEMP 36.8–37.2; O2SAT 95–98
[2022-07-30] MEDS: piperacillin-tazobactam 3.375 GM in sodium chloride 0.9% (plus) 50 ML IV ×3 (00:32→17:38)
[2022-07-30 03:59] LABS: Basophils % 0.4 %; Eosinophils # 0.1 10^3/uL (0.0-0.8); Eosinophils % 1.8 %; Hematocrit 39.4 % (42.0-52.0); Hemoglobin 12.8 g/dL (11.7-16.6); Lymphocytes # 2.2 10^3/uL (0.8-4.8); Lymphocytes % 39.7 %; Mean Corpuscular HGB Conc 32.5 g/dL (30.0-36.0); Mean Corpuscular Hemoglobin 29.8 pg (28.0-34.0); Mean Corpuscular Volume 91.6 fl (80-94); Mean Platelet Volume 12.5 fL (7.4-10.4); Monocytes # 0.7 10^3/uL (0.2-0.9); Monocytes % 12.7 %; Neutrophils # 2.51 10^3/uL (1.8-7.7); Neutrophils % 44.9 %; Nucleated Red Blood Cells % 0 %; Platelet Count 220 10^3/cmm (130-400); Red Cell Distribution Width 12.2 % (12.1-15.1); White Blood Count 5.6 10^3/uL (4.0-10.0)
[2022-07-30 04:21] LABS: Anion Gap 9.5 (5-19); Blood Urea Nitrogen 10 mg/dL (6-20); Calcium 8.4 mg/dL (8.5-10.5); Carbon Dioxide 27 mmol/L (22-29); Chloride 99 mmol/L (98-107); Glucose 225 mg/dL (65-115); Osmolality Calculated 280 mOsm/kg (285-295); Potassium 3.5 mmol/L (3.5-5.1); Sodium 132 mmol/L (136-145)
[2022-07-30 06:34] LABS: Glucose Point of Care 224 mg/dL (70-110)
--- NOTE | 2022-07-30 08:40 | P.PN_ITS ---
Subjective Subjective: Patient seen and evaluated at bedside this morning. Patient states overall he is doing well. Mild tenderness at the site of incision and drainage of the right foot. Denies any overnight events. Denies any constitutional symptoms. Vitals/I&O/Wt Last Vital Signs Temp 98.7 F 07/30/22 07:44 Pulse 71 07/30/22 07:44 Resp 17 07/30/22 07:44 BP 129/74 07/30/22 07:44 Pulse Ox 95 07/30/22 07:44 O2 Del Method 07/30/22 07:44 O2 Flow Rate 6 07/29/22 07:40 07/29/22 07/30/22 07/30/22 22:59 06:59 14:59 Intake Total 2000 / 3955.5 1550 / 5505.5 500 / 500 Balance 2000 / 3950.5 1550 / 5500.5 500 / 500 Weight last 48 hrs Weight 273 lb 8 oz Weight 275 lb Physical Exam Narrative: GENERAL: A&O x 3 VASCULAR: DP/PT pulses palpable 2/4 with CFT intact, <3seconds to distal digits. Moderate edema to right foot extending from the metatarsophalangeal joints to the level of the ankle joint. DERMATOLOGICAL: Surgical dressing left intact this morning at bedside, no strikethrough noted. MUSCULOSKELETAL: Tenderness with palpation of right lateral forefoot. Ulceration area NEUROLOGICAL: Neurological sensation to the affected foot and ankle is dimi nished through L4-S1 dermatomes via 10g SWMF, diminished sensation extends proximally to the level of the midfoot IMAGIN view x-rays of the right foot taken in the emergency department were personally interpreted by me which show increased off tissue density to the lateral aspect of the right foot at the level of the fifth metatarsal neck with soft tissue deficit consistent with clinical ulceration no subcutaneous emphysema noted. No periosteal or cortical erosions noted. Midfoot osteoart hritis visualized. CT scan of the right foot with and without contrast was taken in the emergency department personally interpreted by me which show fluid collection to the lateral aspect of the fifth metatarsal head stemming from the soft tissue defect which correlates clinically with the ulceration, indicating probable abscess. No cortical erosions or signs of osteomyelitis visualized. No subcutaneous emphysema noted. MRI of right foot personally interpreted by me which shows soft tissue deficit at the lateral aspect of the foot at the fifth metatarsal head level consistent with incision and drainage with cellulitis prominent soft tissues and early erosive changes at the lateral aspect of the fifth metatarsal head with minimal marrow edema noted to the fifth metatarsal. No abscess visualized Data 07/30/22 03:09 07/30/22 03:09 Micro: Microbiology 07/28/22 20:45 Blood Culture - Preliminary Blood NEGATIVE TO DATE 07/28/22 20:45 Blood Culture - Preliminary Blood NEGATIVE TO DATE A&P Assessment and plan (1) Diabetic foot ulcer: (2) Abscess of right foot: (3) Type 2 diabetes mellitus: (4) Cellulitis: Plan -Right foot full-thickness ulceration with underlying abscess -Patient seen and evaluated, labs and vitals reviewed -WBC 5.6 -ESR 17 -CRP 179 -VSS -Cultures: Pending -Antibiotics: Vanco/Zosyn -Okay for diet -If incision site appears to stable tomorrow morning, we will perform closure at bedside -Continue broad-spectrum IV antibiotics -Partial weightbearing to right heel for transfers while inpatient -Wound care to be performed by podiatry service while inpatient -Anticipate likely discharge tomorrow if patient continues to remain stable and wound site appears improved. I believe that the patient can go home on broad- spectrum p.o. antibiotics with close follow-up in clinic. Antibiotics can be adjusted in the outpatient setting as ID and sensitivity result -I will discuss with hospitalist Attestations Medical Necessity Statement*: See above Coding Level of Care Code Acute Pleasure Craft Sailor for [facility] Fwd Diagnoses Diabetic foot ulcer E11.621; L97.509 Abscess of right foot L02.611 Type 2 diabetes mellitus E11.9 Cellulitis L03.90
[2022-07-30] MEDS: sodium chloride 0.9% 1,000 ML 100 ML IV ×3 (09:51→21:57)
[2022-07-30] MEDS: insulin lispro 100 unit/1 mL SUBCUT ×4 (09:52→21:10)
[2022-07-30 12:27] LABS: Glucose Point of Care 223 mg/dL (70-110)
[2022-07-30 12:35] LABS: Vancomycin Trough 18.3 ug/mL (10-15)
[2022-07-30] MEDS: HYDROcodone-acetaminophen 5-325 mg Tablet 1 TAB PO (16:28)
[2022-07-30 16:42] LABS: Glucose Point of Care 241 mg/dL (70-110)
--- NOTE | 2022-07-30 19:59 | P.PN_ITS ---
Subjective Subjective: He is having some ache in his foot. Otherwise doing well. No additional new symptoms. Spoke with podiatry earlier. Vitals/I&O/Wt Last Vital Signs Temp 98.5 F 07/30/22 15:41 Pulse 74 07/30/22 15:41 Resp 16 07/30/22 15:41 BP 134/85 07/30/22 15:41 Pulse Ox 98 07/30/22 15:41 O2 Del Method 07/30/22 15:41 O2 Flow Rate 6 07/30/22 08:00 07/30/22 07/30/22 07/30/22 06:59 14:59 22:59 Intake Total 1550 / 5505.5 1506.667 / 1506.667 740 / 2246.667 Balance 1550 / 5500.5 1506.667 / 1506.667 740 / 2246.667 Weight last 48 hrs Weight 124.058 kg Physical Exam Narrative: Family at bedside. Const: COMMON NORMALS: patient oriented x3 and alert GENERAL APPEARANCE: cooperative ORIENTATION/CONSCIOUSNESS: Yes awake HENMT: COMMON NORMALS: oropharynx normal Neck/C-Spine: COMMON NORMALS: no JVD Resp: COMMON NORMALS: normal respiratory effort and clear to auscultation bilaterally AUSCULTATION: clear to auscultation bilaterally Cardio: COMMON NORMALS: no JVD, regular rhythm, S1 normal heart sound present, S2 normal heart sound present and No murmurs present (Cardio) RHYTHM: regular rhythm HEART SOUNDS: S1 normal heart sound present and S2 normal heart sound present GI: COMMON NORMALS: Normal to inspection, nondistended, normoactive bowel sounds present, Soft to palpation and non-tender PALPATION: Yes Soft to palpation Extremity: COMMON NORMALS: no joint enlargement and no pedal edema NARRATIVE EXTREMITY EXAM: Right foot postoperative dressing. Neuro: COMMON NORMALS: patient oriented x3 and moves all extremities SENSORIUM/ORIENTATION: Yes alert Skin: COMMON NORMALS: no rashes or lesions noted GENERAL SKIN EXAM: no rashes or lesions noted Data 07/30/22 03:09 07/30/22 03:09 Micro: Microbiology 07/29/22 07:25 Anaerobic Culture - Preliminary Foot - #1 07/29/22 07:25 Gram Stain - Final Other Source Wound Culture - Preliminary Coag positive Staphylococcus 07/28/22 20:45 Blood Culture - Preliminary Blood NEGATIVE TO DATE 07/28/22 20:45 Blood Culture - Preliminary Blood NEGATIVE TO DATE A&P Assessment and plan (1) Abscess of right foot: Follow-up culture. Continue Zosyn vancomycin, pending additional reassessment by podiatry tomorrow. Discussed with him, discussed with podiatry results of MRI. Possibility of early osteomyelitis cannot be excluded. Prescription for Bactrim thought to be less likely at this time, however, may benefit from further follow-up, obed ssessment with additional imaging to confirm. Currently risk of obtaining bone biopsies would outweigh the benefit with risk of introducing infection. In case doing well, potential discharge tomorrow with empiric antibiotic, possibly Cipro, linezolid, with follow-up with both podiatry and infectious disease. (2) Diabetic ulcer of foot associated with diabetes mellitus due to underlying condition, limited to breakdown of skin: As above (3) Diabetic foot ulcer: As above (4) Type 2 diabetes mellitus: (5) Cellulitis: Zosyn, vancomycin. (6) Hypertension: Plan Full code DVT prophylaxis: Lovenox Attestations Medical Necessity Statement*: Continue admission for assessment management of abscess, cellulitis of right foot, status post I&D and gentleman with diabetes. Coding Level of Care Code Acute Sonography Technician for [facility] Diagnoses Abscess of right foot L02.611 Diabetic ulcer of foot associated with diabetes mellitus due to underlying condition, limited to breakdown of skin E08.621; L97.501 Diabetic foot ulcer E11.621; L97.509 Type 2 diabetes mellitus E11.9 Cellulitis L03.90 Hypertension I10
[2022-07-30] MEDS: enoxaparin 40 mg/0.4 mL Syringe SUBCUT (20:30)
[2022-07-30] MEDS: insulin glargine 100 units/1 mL 10 UNIT SUBCUT (20:47)
[2022-07-30 20:55] LABS: Glucose Point of Care 264 mg/dL (70-110)
[2022-07-31] VITALS: BP 144/88; PULSE 73; RESP 16; TEMP 36.7; O2SAT 97
[2022-07-31] MEDS: piperacillin-tazobactam 3.375 GM in sodium chloride 0.9% (plus) 50 ML IV ×2 (00:57→09:37)
[2022-07-31 04:00] VITALS: BP 113/69; PULSE 56; RESP 16; TEMP 36.6; O2SAT 97
[2022-07-31 04:01] LABS: Basophils % 0.6 %; Eosinophils # 0.1 10^3/uL (0.0-0.8); Eosinophils % 2.1 %; Hematocrit 38.3 % (42.0-52.0); Hemoglobin 12.4 g/dL (11.7-16.6); Lymphocytes # 2.6 10^3/uL (0.8-4.8); Lymphocytes % 48.4 %; Mean Corpuscular HGB Conc 32.4 g/dL (30.0-36.0); Mean Corpuscular Hemoglobin 29.4 pg (28.0-34.0); Mean Corpuscular Volume 90.8 fl (80-94); Mean Platelet Volume 11.1 fL (7.4-10.4); Monocytes # 0.7 10^3/uL (0.2-0.9); Neutrophils # 1.81 10^3/uL (1.8-7.7); Neutrophils % 34.3 %; Nucleated Red Blood Cells % 0 %; Platelet Count 213 10^3/cmm (130-400); Red Blood Count 4.22 10^6/uL (4.1-5.3); White Blood Count 5.3 10^3/uL (4.0-10.0)
[2022-07-31 04:20] LABS: Blood Urea Nitrogen 10 mg/dL (6-20); Calcium 8.6 mg/dL (8.5-10.5); Carbon Dioxide 28 mmol/L (22-29); Chloride 96 mmol/L (98-107); Glomerular Filtration Rate 121.4 mL/min (90-130); Glucose 222 mg/dL (65-115); Osmolality Calculated 272 mOsm/kg (285-295); Sodium 128 mmol/L (136-145)
[2022-07-31 06:22] LABS: Glucose Point of Care 249 mg/dL (70-110)
[2022-07-31 08:00] VITALS: BP 156/92; PULSE 59; PULSE 77; RESP 16; TEMP 36.8; O2SAT 97
--- NOTE | 2022-07-31 08:11 | PM.PN ---
Subjective Subjective: Patient seen at bedside this morning, resting comfortably. Denies any overnight events. Denies any constitutional symptoms. States the pain is well controlled right lower extremity. States that his gown snagged on his IV which pulled out this morning but nursing staff was able to help him get it under control. Patient had questions regarding MRI. We discussed at length about findings of MRI and our plan moving forward. All patient questions were answered to patient satisfaction. Vitals/I&O/Wt Last Vital Signs Temp 98 F 07/31/22 04:00 Pulse 56 L 07/31/22 04:00 Resp 16 07/31/22 04:00 BP 113/69 07/31/22 04:00 Pulse Ox 97 07/31/22 04:00 O2 Del Method 07/30/22 20:13 O2 Flow Rate 6 07/30/22 20:00 07/30/22 07/31/22 07/31/22 22:59 06:59 14:59 Intake Total 2183.333 / 3690.000 500 / 4190.000 50 / 50 Balance 2183.333 / 3690.000 500 / 4190.000 50 / 50 Physical Exam Narrative: GENERAL: A&O x 3 VASCULAR: DP/PT pulses palpable 2/4 with CFT intact, <3seconds to distal digits. Moderate edema to right foot extending from the metatarsophalangeal joints to the level of the ankle joint. DERMATOLOGICAL: Full-thickness ulceration plantar aspect of right fifth metatarsal head with incision extending laterally and dorsally from previous I&D measuring 5 cm in length. Underlying tissue is healthy in appearance with no fibrotic or necrotic tissue. No active purulence or drainage. No probe to bone. MUSCULOSKELETAL: No tenderness with palpation of right lateral forefoot. NEUROLOGICAL: Neurological sensation to the affected foot and ankle is diminished through L4-S1 dermatomes via 10g SWMF, diminished sensation extends proximally to the level of the midfoot IMAGIN view x-rays of the right foot taken in the emergency department were personally interpreted by me which show increased off tissue density to the lateral aspect of the right foot at the level of the fifth metatarsal neck with soft tissue deficit consistent with clinical ulceration no subcutaneous emphysema noted. No periosteal or cortical erosions noted. Midfoot osteoarthritis visualized. CT scan of the right foot with and without contrast was taken in the emergency department personally interpreted by me which show fluid collection to the lateral aspect of the fifth metatarsal head stemming from the soft tissue defect which correlates clinically with the ulceration, indicating probable abscess. No cortical erosions or signs of osteomyelitis visualized. No subcutaneous emphysema noted. MRI of right foot personally interpreted by me which shows soft tissue deficit at the lateral aspect of the foot at the fifth metatarsal head level consistent with incision and drainage with cellulitis prominent soft tissues and early erosive changes at the lateral aspect of the fifth metatarsal head with minimal marrow edema noted to the fifth metatarsal. No abscess visualized Data 07/31/22 03:48 07/31/22 03:48 Micro: Microbiology 07/29/22 07:25 Anaerobic Culture - Preliminary Foot - #1 07/29/22 07:25 Gram Stain - Final Other Source Wound Culture - Preliminary Coag positive Staphylococcus A&P Assessment and plan (1) Diabetic foot ulcer: (2) Abscess of right foot: (3) Type 2 diabetes mellitus: (4) Cellulitis: Plan -Right foot full-thickness ulceration with underlying abscess -Patient seen and evaluated, labs and vitals reviewed -WBC 5.3 -ESR 17 -CRP 179 -VSS -Cultures: Pending -Antibiotics: Vanco/Zosyn -Okay for diet -Delayed primary closure performed at bedside this morning 07/31/2022. See procedure note for details -Okay to discharge home on broad-spectrum antibiotics. Podiatry recommends clindamycin/ciprofloxacin -Partial weightbearing to right heel for transfers in postop shoe -Patient is to leave dressing clean, dry, intact until his follow-up in the office -Okay to discharge home on p.o. antibiotics per podiatry. Cultures will be continue to monitor for ID and sensitivity and adjustments antibiotics will be made on the outpatient setting as needed -I will discuss with hospitalist Attestations Medical Necessity Statement*: See above Coding Level of Care Code Acute Web Marketing Specialist for g Fwd Diagnoses Diabetic foot ulcer E11.621; L97.509 Abscess of right foot L02.611 Type 2 diabetes mellitus E11.9 Cellulitis L03.90
--- NOTE | 2022-07-31 08:25 | P.PCN_ITS ---
Procedure/Consent Consent: Additional Consent Information: Patient was consented for right foot incision delayed primary closure at bedside Procedure Narrative: Both written and verbal consent were obtained for right foot incision delayed primary closure. Patient is a 46-year-old male with history of right foot abscess that underwent incision and drainage in the operating room setting 07/29/2022. The incision was left open to drain with io doform packing. The patient's labs have trended in the appropriate position since the procedure. Dressing was removed today and incision site and wound were examined. Tissue was noted to be healthy with no further purulence or active drainage. The site was irrigated with sterile saline. The foot was prepped with alcohol before 3 cc of 1% lidocaine plain was used to anesthetize the periincisional area. The site was then prepped with Betadine. Next, the lateral right foot incision at the level of the fifth metatarsal head was closed using 4-0 nylon in trauma stitch fashion. The plantar wound was then packed with 1/4 inch iodoform packing gauze. The site was then dressed with 4 x 4 gauze, Kerlix and Mitesh wrap. The patient tolerated the procedure well and without complication.
[2022-07-31] MEDS: insulin lispro 100 unit/1 mL SUBCUT (09:37)
--- NOTE | 2022-07-31 10:20 | PM.DCS ---
Discharge Providers Date of Admission: 07/28/22 20:03 Date of Discharge: July 31, 2022 Attending Provider at Admission: Jing Moore MD Attending Provider at Discharge: Severiano Dewitt Primary Care Provider: ERICH Schafer Diagnoses at Discharge Discharge Diagnosis (1) Diabetic foot ulcer: Status: Acute (2) Abscess of right foot: Status: Acute (3) Type 2 diabetes mellitus: Status: Acute (4) Cellulitis: Status: Acute Reason for Visit Reason for Visit: foot infection Hospital Course Hospital Course 46-year-old gentleman with diabetes, diabetic foot ulcer of right lower extremity, was referred from wound care clinic for surgical evaluation, on admission foot found to have cellulitis, and on CT noted abscess. In hospital treated with Zosyn and vancomycin. Underwent I&D of foot abscess by podiatry. Culture sent. No bone or joint capsule exposure noted during I&D. MRI on foot showing severe diffuse cellulitis, more significant findings of enhancement of cellulitis surrounding the distal fifth metatarsal and fifth metatarsophalangeal joint. Very tiny 5 mm abscess pocket lateral to the fifth metatarsal head. Very subtle changes of enhancement in the fifth metatarsal head. Suspicious for developing osteomyelitis. Loss of normal cortex. At discharge he will continue on ciprofloxacin and clindamycin, follow-up for reassessment with podiatry for wound healing, reimaging for reassessment of possible osteomyelitis, consideration of extension of antibiotic, and due to this is also asked to follow-up also with infectious disease. Physical Exam Narrative: Family at bedside. Const: COMMON NORMALS: patient oriented x3 and alert GENERAL APPEARANCE: cooperative ORIENTATION/CONSCIOUSNESS: Yes awake HENMT: COMMON NORMALS: oropharynx normal Neck/C-Spine: COMMON NORMALS: no JVD Resp: COMMON NORMALS: normal respiratory effort and clear to auscultation bilaterally AUSCULTATION: clear to auscultation bilaterally Cardio: COMMON NORMALS: no JVD, regular rhythm, S1 normal heart sound present, S2 normal heart sound present and No murmurs present (Cardio) RHYTHM: regular rhythm HEART SOUNDS: S1 normal heart sound present and S2 normal heart sound present GI: COMMON NORMALS: Normal to inspection, nondistended, normoactive bowel sounds present, Soft to palpation and non-tender PALPATION: Yes Soft to palpation Extremity: COMMON NORMALS: no joint enlargement and no pedal edema NARRATIVE EXTREMITY EXAM: Right foot postoperative dressing. Neuro: COMMON NORMALS: patient oriented x3 and moves all extremities SENSORIUM/ORIENTATION: Yes alert Skin: COMMON NORMALS: no rashes or lesions noted GENERAL SKIN EXAM: no rashes or lesions noted Discharge Data Studies Completed and Pending Completed Studies During Hospitalization Category Date Time Status CT foot RT w con [id number] Stat Cat Scan 07/28/22 17:59 Completed XR foot RT 2V [id number] Stat Exams 07/28/22 17:29 Completed MR foot RT wo/w con [id number] Routine MRI 07/29/22 13:38 Completed Pending at discharge Category Date Time Status Anaerobic Culture Routine Lab 07/29/22 07:25 Results Basic Metabolic Panel AM LABS Lab 08/01/22 04:00 Ordered Blood Culture Routine Lab 07/28/22 20:45 Results Complete Blood Count w/Auto AM LABS Lab 08/01/22 04:00 Ordered Vancomycin Trough Timed Lab 07/31/22 12:00 Ordered Wound Culture and Gram Stain Routine Lab 07/29/22 07:25 Results Radiology Impressions Foot X-Ray 07/28/22 17:29 IMPRESSION: 1. Negative for osteomyelitis. 2. Increased soft tissue swelling. Foot CT 07/28/22 17:59 IMPRESSION: 1. Soft tissue ulcer and cellulitis in the lateral forefoot with a small abscess present extending along the sinus tract. 2. Negative for osteomyelitis. Laboratory Results WBC 5.3 10^3/uL (4.0-10.0) 07/31/22 03:48 RBC 4.22 10^6/uL (4.1-5.3) 07/31/22 03:48 Hgb 12.4 g/dL (11.7-16.6) 07/31/22 03:48 Hct 38.3 % (42.0-52.0) L 07/31/22 03:48 MCV 90.8 fl (80-94) 07/31/22 03:48 MCH 29.4 pg (28.0-34.0) 07/31/22 03:48 MCHC 32.4 g/dL (30.0-36.0) 07/31/22 03:48 RDW 12.0 % (12.1-15.1) L 07/31/22 03:48 Plt Count 213 10^3/cmm (130-400) 07/31/22 03:48 MPV 11.1 fL (7.4-10.4) H 07/31/22 03:48 Neut % (Auto) 34.3 % 07/31/22 03:48 Lymph % (Auto) 48.4 % 07/31/22 03:48 [place] % (Auto) 14.0 % 07/31/22 03:48 Eos % (Auto) 2.1 % 07/31/22 03:48 Baso % (Auto) 0.6 % 07/31/22 03:48 Neut # (Auto) 1.81 10^3/uL (1.8-7.7) 07/31/22 03:48 Lymph # (Auto) 2.6 10^3/uL (0.8-4.8) 07/31/22 03:48 [place] # (Auto) 0.7 10^3/uL (0.2-0.9) 07/31/22 03:48 Eos # (Auto) 0.1 10^3/uL (0.0-0.8) 07/31/22 03:48 Baso # (Auto) 0.0 10^3/uL (0.0-0.1) 07/31/22 03:48 Nucleated RBC % (auto) 0 % 07/31/22 03:48 Nucleated RBCs # 0.0 /100WBC 07/31/22 03:48 ESR 17 mm/hr (0-10) H 07/28/22 17:20 Sodium 128 mmol/L (136-145) L 07/31/22 03:48 Potassium 4.0 mmol/L (3.5-5.1) 07/31/22 03:48 Chloride 96 mmol/L (98-107) L 07/31/22 03:48 Carbon Dioxide 28 mmol/L (22-29) 07/31/22 03:48 Anion Gap 8.0 (5-19) 07/31/22 03:48 BUN 10 mg/dL (6-20) 07/31/22 03:48 Creatinine 0.7 mg/dL (0.7-1.2) 07/31/22 03:48 GFR Calculation 121.4 mL/min (90-130) 07/31/22 03:48 Glucose 222 mg/dL (65-115) H 07/31/22 03:48 POC Glucose 249 mg/dL (70-110) H 07/31/22 06:15 Estimat Average Glucose 255 07/28/22 20:45 Hemoglobin A1c 10.5 % (4.0-6.0) H 07/28/22 20:45 Calculated Osmolality 272 mOsm/kg (285-295) L 07/31/22 03:48 Lactic Acid 1.6 mmol/L (0.5-2.2) 07/28/22 20:45 Calcium 8.6 mg/dL (8.5-10.5) 07/31/22 03:48 Magnesium 1.8 mg/dL (1.7-2.3) 07/29/22 04:43 Total Bilirubin 0.5 mg/dL (0.15-1.2) 07/28/22 17:20 AST 13 U/L (0-40) 07/28/22 17:20 ALT 13 U/L (0-41) 07/28/22 17:20 Alkaline Phosphatase 116 U/L (40-130) 07/28/22 17:20 C-Reactive Protein 179.0 mg/L (0.0-4.9) H 07/28/22 17:20 Total Protein 7.6 g/dL (6.6-8.7) 07/28/22 17:20 Albumin 3.6 g/dL (3.5-5.2) 07/28/22 17:20 Globulin 4.0 g/dL (1.3-4.6) 07/28/22 17:20 Procalcitonin 0.15 ng/mL (0-0.5) 07/28/22 20:45 Vancomycin Trough 18.3 ug/mL (10-15) H 07/30/22 12:01 Vitals Last Vital Signs Temp 98.2 F 07/31/22 08:00 Pulse 77 07/31/22 08:00 Resp 16 07/31/22 08:00 BP 156/92 07/31/22 08:00 Pulse Ox 97 07/31/22 08:00 O2 Del Method 07/31/22 08:00 O2 Flow Rate 6 07/30/22 20:00 Discharge Plan Discharge Patient Disposition: Home Condition: Stable Prescriptions: New ciprofloxacin HCl 500 mg tablet 500 mg PO Q12H Qty: 30 1RF Rx Instructions: Take one tablet by mouth every 12 hours clindamycin HCl 300 mg capsule 300 mg PO Q8H 15 Days Qty: 45 1RF Rx Instructions: Take one capsule by mouth every 8 hours Continued (DME) Extra Depth Diabetic Shoes with Custom Molded Orthotics See Rx Instructions .Route .MEDSUPPLY Qty: 1 0RF Rx Instructions: As directed [employer] (DME) AFO to the right See Rx Instructions .Route .MEDSUPPLY Qty: 1 0RF Rx Instructions: As directed [employer] [place] [place] Diabetic shoes See Rx Instructions .Route .MEDSUPPLY Qty: 1 0RF Rx Instructions: to HOME ([facility] [place] blood-glucose meter [Blood Glucose Monitoring] Kit See Rx Instructions .ROUTE .MEDSUPPLY Qty: 1 0RF Rx Instructions: As directed ([facility] [place] Blood Glucose Test Strip See Rx Instructions .Route Qty: 50 2RF Rx Instructions: As directed metformin 500 mg tablet 500 mg PO BID Qty: 60 0RF lisinopril 10 mg tablet 10 mg PO BEDTIME albuterol sulfate 90 mcg/actuation HFA aerosol inhaler 2 puff INHALATION Q4H PRN (Reason: Shortness Of Breath) Regranex 0.01 % gel See Rx Instructions .ROUTE .COMPLEX Rx Instructions: apply thin layer of ointment to affected area 12 hours on and 12 hours off glipizide 10 mg tablet 10 mg PO QAM Discontinued doxycycline hyclate 100 mg capsule See Rx Instructions .ROUTE .COMPLEX Qty: 28 0RF Dose Instruction: TAKE 1 CAPSULE BY MOUTH TWICE DAILY FOR 14 DAYS Rx Instructions: TAKE 1 CAPSULE BY MOUTH TWICE DAILY FOR 14 DAYS Amoxil 500 mg Capsule 500 mg PO .ONCE Discharge Orders: Discharge Order (Routine); Ordered 07/31/22 Ordered By: Severiano Dewitt Referrals: Sharon Robins FNP [Primary Care Provider] - 4-7 days (Please call Monday to schedule your follow up with Sharon Robins.) Abbie Cuellar MD [Hospitalist] - 7-10 days (ID clinic) Kodak Hernández DPM [Physician] - (As per Dr Hernández) Discharge Diet: Diabetic Discharge Activity: Limit activity as instructed Patient Instructions: Ciprofloxacin (By mouth), Clindamycin (By mouth) Activity Restrictions/Additional Instructions: Partial weightbearing to right heel for transfers in postop shoe Leave dressing clean, dry, intact until his follow-up in the office Cultures will be continue to monitor for ID and sensitivity and adjustments antibiotics will be made on the outpatient setting as needed. Follow-up also with infectious disease in office. Your antibiotic may be changed or extended depending on results of culture, repeat imaging to reassess for possible osteomyelitis. Please have a primary doctor reassess your sodium due to hyponatremia. Do not limit sodium intake. Discharge Attestations Time Spent in Discharge Care*: greater than 30 min Quality Metrics Clinical Quality Measures [ No reported AMI, CVA or VTE this stay] Coding Level of Care Code Acute [facility] note Diagnoses Diabetic foot ulcer E11.621; L97.509 Abscess of right foot L02.611 Type 2 diabetes mellitus E11.9 Cellulitis L03.90
== END 2022-07-31 11:37 | disposition home or self-care (01) | DRG 638 ==
LOC: ER 20:06 → MEDSURG 20:18
PROVIDERS: Podiatrist Foot & Ankle Surgery; Admitting Provider Internal Medicine; Emergency Provider Nurse Practitioner Family; PCP Nurse Practitioner Family; Visit Provider Internal Medicine
PROC: 0J9Q0ZX Drainage of Right Foot Subcutaneous Tissue and Fascia, Open Approach, Diagnostic (ICD-10-PCS; principal; 2022-07-29 07:00)
DX: E11.628 Type 2 diabetes mellitus with other skin complications (principal); L02.611 Cutaneous abscess of right foot; L97.411 Non-pressure chronic ulcer of right heel and midfoot limited to breakdown of skin; L03.115 Cellulitis of right lower limb; E11.621 Type 2 diabetes mellitus with foot ulcer; E11.42 Type 2 diabetes mellitus with diabetic polyneuropathy; I10 Essential (primary) hypertension; Z79.84 Long term (current) use of oral hypoglycemic drugs
CPT/HCPCS: 36415; 36416; 73620; 73701; 73720; 80048; 80053; 80202; 82962; 83036; 83605; 83735; 84145; 85025; 85651; 86140; 87040; 87070; 87075; 87077; 87186; 87205; 96365; 96367; 96372; 99285; A9577; J0744; J1650; J1815; J2250; J2543; J2704; J3010; J3370; J3490; J7030; J7040; L3260; Q9967

== ENCOUNTER → 2023-02-09 14:26 | Outpatient (BNVA) | payer OTHER, SELFPAY | PROVIDERS: PCP Family Medicine Adult Medicine; Visit Provider Nurse Practitioner Family | DX: E11.52 Type 2 diabetes mellitus with diabetic peripheral angiopathy with gangrene (principal); L97.512 Non-pressure chronic ulcer of other part of right foot with fat layer exposed | CPT/HCPCS: 87070; 87077; 87176; 87186; 87205 ==

== ENCOUNTER 2023-03-09 14:24 | Outpatient (CLI) | payer OTHER, SELFPAY ==
--- NOTE | 2023-03-09 14:30 | MR_ITS ---
WS: [id number] EXAMINATION: MR foot RT wo/w con [id number] ORDER DATE: 03/09/2023 2:54 PM COMPARISON: MRI July 29, 2022 HISTORY: Rule out osteomylitis CONTRAST: 20 cc MultiHance TECHNIQUE: Sagittal T1, sagittal STIR, coronal PD, coronal T2, axial T1, axial T2, and axial PD imagi ng with fat saturation technique. Post gadolinium imaging includes axial T1, coronal T1, and sagittal T1 with fat saturation technique. FINDINGS: Palpable marker overlying the distal 5th metatarsal. Associated ulceration in this area wit h associated soft tissue edema. Small amount of fluid in the 5th MTP joint. Associated soft tissue ed kevin and enhancement compatible with cellulitis. Ulceration involving the plantar surface underlying t he 5th metatarsal head. Bone marrow signal in the 5th metatarsal head appears preserved. No evidence of acute osteomyelitis. Cellulitis improved compared to July 2022. Chronic appearing erosions inv olving the 5th metatarsal head. No drainable fluid collections. Degenerative changes involving the midfoot and forefoot. Preserved T1 bone marrow signal in the remainder of the metatarsals. No other suspicious findings. MR/MR foot RT wo/w con [id number] IMPRESSION: 1. Ulceration overlying the head of the 5th metatarsal. No drainable abscess o r fluid collection. Associated cellulitis. 2. Fluid in the 5th MTP joint suspicious for infection. Bone marrow signal rem ains normal. No evidence of acute osteomyelitis. 3. No other significant changes compared to previous.
[2023-03-09] MEDS: gadobenate dimeglumine 20 mL vial IV (15:49)
== END 2023-03-09 14:25 | disposition home or self-care (01) ==
LOC: RAD 14:44
PROVIDERS: PCP Family Medicine Adult Medicine; Visit Provider Nurse Practitioner Family
DX: E11.621 Type 2 diabetes mellitus with foot ulcer (principal); L97.509 Non-pressure chronic ulcer of other part of unspecified foot with unspecified severity; L97.519 Non-pressure chronic ulcer of other part of right foot with unspecified severity; L03.031 Cellulitis of right toe
CPT/HCPCS: 73720; A9577

== ENCOUNTER 2023-04-27 15:20 | Outpatient (CLI) | payer OTHER, SELFPAY ==
[2023-04-27 16:13] LABS: Basophils % 0.5 %; Eosinophils % 0.3 %; Hematocrit 44.6 % (37-53); Lymphocytes # 1.4 10^3/uL (0.8-4.8); Lymphocytes % 23.2 %; Mean Corpuscular HGB Conc 34.1 g/dL (30-55); Mean Corpuscular Hemoglobin 30.2 pg (27-33); Mean Corpuscular Volume 88.5 fl (82-101); Mean Platelet Volume 11.7 fL (7.4-10.4); Monocytes # 0.6 10^3/uL (0.2-0.9); Monocytes % 10.5 %; Neutrophils # 3.77 10^3/uL (1.8-7.7); Nucleated Red Blood Cells % 0 %; Platelet Count 194 10^3/cmm (157-399); Red Blood Count 5.04 10^6/uL (3.85-5.65); Red Cell Distribution Width 12.8 % (12.1-15.1); White Blood Count 5.81 10^3/uL (3.29-11.43)
[2023-04-27 17:06] LABS: Alanine Aminotransferase 19 U/L (0-41); Albumin Level 4.1 g/dL (3.5-5.2); Alkaline Phosphatase 89 U/L (40-130); Anion Gap 13.6 (5-19); Aspartate Amino Transferase 15 U/L (0-40); Blood Urea Nitrogen 12 mg/dL (6-20); Calcium 8.9 mg/dL (8.5-10.5); Carbon Dioxide 29 mmol/L (22-29); Chloride 97 mmol/L (98-107); Globulin 3.4 g/dL (1.3-4.6); Glomerular Filtration Rate 144.4 mL/min (90-130); Glucose 238 mg/dL (65-115); Osmolality Calculated 288 mOsm/kg (285-295); Potassium 4.6 mmol/L (3.5-5.1); Sodium 135 mmol/L (136-145); Total Bilirubin 0.6 mg/dL (0.15-1.2); Total Protein 7.5 g/dL (6.6-8.7)
== END 2023-04-27 15:21 | disposition home or self-care (01) ==
PROVIDERS: PCP Family Medicine Adult Medicine; Visit Provider Nurse Practitioner Family
DX: E11.621 Type 2 diabetes mellitus with foot ulcer (principal); L97.509 Non-pressure chronic ulcer of other part of unspecified foot with unspecified severity
CPT/HCPCS: 80053; 85025

== ENCOUNTER 2023-04-27 16:23 | Emergency (ER) | payer OTHER, SELFPAY ==
[2023-04-27 16:24] VITALS: BP 134/85; PULSE 96; RESP 16; TEMP 37.2; O2SAT 96; BMI 34.0
[2023-04-27 17:08] LABS: Basophils % 0.4 %; Eosinophils % 0.4 %; Hematocrit 44.9 % (37-53); Lymphocytes # 1.3 10^3/uL (0.8-4.8); Lymphocytes % 24.4 %; Mean Corpuscular HGB Conc 34.5 g/dL (30-55); Mean Corpuscular Hemoglobin 29.6 pg (27-33); Mean Corpuscular Volume 85.9 fl (82-101); Mean Platelet Volume 11.4 fL (7.4-10.4); Monocytes # 0.5 10^3/uL (0.2-0.9); Neutrophils # 3.57 10^3/uL (1.8-7.7); Neutrophils % 65.3 %; Nucleated Red Blood Cells % 0 %; Platelet Count 196 10^3/cmm (157-399); Red Blood Count 5.23 10^6/uL (3.85-5.65); Red Cell Distribution Width 12.7 % (12.1-15.1); White Blood Count 5.46 10^3/uL (3.29-11.43)
[2023-04-27 17:20] LABS: Alanine Aminotransferase 16 U/L (0-41); Albumin Level 4.2 g/dL (3.5-5.2); Alkaline Phosphatase 90 U/L (40-130); Aspartate Amino Transferase 16 U/L (0-40); Blood Urea Nitrogen 12 mg/dL (6-20); Calcium 8.8 mg/dL (8.5-10.5); Carbon Dioxide 26 mmol/L (22-29); Chloride 96 mmol/L (98-107); Globulin 3.5 g/dL (1.3-4.6); Glomerular Filtration Rate 178.2 mL/min (90-130); Glucose 216 mg/dL (65-115); Osmolality Calculated 280 mOsm/kg (285-295); Sodium 132 mmol/L (136-145); Total Bilirubin 0.6 mg/dL (0.15-1.2); Total Protein 7.7 g/dL (6.6-8.7)
--- NOTE | 2023-04-27 17:37 | ED_ITS ---
HPI - Extremity Problem General: Chief complaint: Extremity Problem,Nontraumatic Stated complaint: wound care sent, infection right leg Time Seen by Provider: 04/27/23 17:07 Source: patient Mode of arrival: ambulatory Limitations: no limitations History of Present Illness: Patient presents to the emergency department today at the request of wound care. Patient has been seeing wound care weekly for almost a year for a chronic diabetic foot ulcer on the right foot. Patient intermittently has reoccurring erythema and swelling of the foot and ankle for which he states he is given antibiotics. Patient states that he has been on ciprofloxacin, clindamycin, and Bactrim. Most recently, patient was on Bactrim approximately 1 week ago. In talking to the patient, he seems to take and stop antibiotics as he feels he is either worsening or improving. Patient was at wound care today and they noted patient had a low-grade fever and thought his ankle and foot were looking erythematous and infected. Patient admitted it was red when he was at wound care but, he did still have his wound debridement and rebandaging performed prior to arrival here in the ER. Patient states that at this time, he feels the redness has significantly improved and resolved and, indicates he does not feel chilled or fevers. He also indicates no pain of the right ankle or foot at this time. Review of Systems General: Reports: 10 or more systems reviewed and unremarkable except in HPI and below PFSH ED PFSH: Medical History Diabetic foot ulcer Dyslipidemia associated with type 2 diabetes mellitus Hypertension Severe obesity with body mass index (BMI) of 35.0 to 39.9 with serious comorbidity Type 2 diabetes mellitus Uncontrolled diabetes mellitus Surgical History History of hernia repair Umbilical Family History Other CAD (coronary artery disease) Social History Smoking and tobacco status: never smoked Alcohol intake: never Physical Exam Const: COMMON NORMALS: no acute distress, patient oriented x3 and alert HENMT: COMMON NORMALS: normocephalic, atraumatic and hearing grossly normal bilaterally HEAD & SCALP: normocephalic and atraumatic Eye: COMMON NORMALS: Equal, round and reactive pupils present, EOMs intact bilaterally and conjunctivae normal CONJUNCTIVA: Yes conjunctivae normal PUPIL: Yes Equal, round and reactive pupils present Neck/C-Spine: COMMON NORMALS: full ROM and no JVD Lymph: LYMPHATIC: no lymphadenopathy noted Resp: COMMON NORMALS: normal respiratory effort, No retractions and No use of accessory muscles Cardio: COMMON NORMALS: no JVD and regular rate RATE: regular rate Extremity: NARRATIVE EXTREMITY EXAM: Patient is independently ambulatory and weightbearing here in the emergency department without pain. Neuro: COMMON NORMALS: patient oriented x3 SENSORIUM/ORIENTATION: Yes alert Psych: COMMON NORMALS: mental status grossly normal, Normal thought process present, cooperative and normal affect THOUGHT PROCESS: Normal thought process present Skin: NARRATIVE SKIN EXAM: Patient's wound was not visible due to brand-new wound care bandaging applied but, patient did have a picture on his phone. Patient appears to have a clean, quarter sized open wound to the plantar aspect of the right fifth MTP joint. There is no obvious erythema to the visible portion of the dorsal aspect of the foot or ankle at this time. Patient has chronic discoloration patches noted to the anterior, distal right elizabeth. Mild edema but no pitting. Course Vital Signs: Vital signs: Vital Signs Temperature 98.9 F 04/27/23 16:24 Pulse Rate 96 04/27/23 16:24 Respiratory Rate 16 04/27/23 16:24 Blood Pressure 134/85 04/27/23 16:24 Pulse Oximetry 96 04/27/23 16:24 Oxygen Delivery Me thod Room Air 04/27/23 16:24 MDM - Extremity (Nontraumatic) Medical Decision Making Discussed with patient that his vital signs are stable here. Lab work shows no signs of an elevated white blood cell count. Patient's blood sugars in the 200s. Kidney function is well within normal limits. Patient admits he is not having any pain and does not feel fevered and indicates no concerns for redness of his ankle or foot. Still, patient was documented to have redness by the wound care clinic and, as they perform wound care and bandaging for which I am unable to see the patient's wound at this time, we will go ahead and administer antibiotics for the patient to have to begin taking for concerns of acute cellulitis. Patient was requesting stem cell patches to have her bandaging but, explained to the patient that we have very limited bandaging here in the emergency department and, more advanced bandaging and wound treatments have to come from wound care. Patient indicated he was told to touch base with wound care upon discharge and encouraged him to let them know his vital signs were stable, he was afebrile, no elevated white blood cell count, and Bactrim was administered. Patient verbalized understanding and agreement to treatment plan. Differential Diagnosis Likely cellulitis (Chronic diabetic ulcer) and lower extremity edema; Unlikely gout Lab Data 04/27/23 16:48 04/27/23 16:48 Laboratory Results WBC 5.46 10^3/uL (3.29-11.43) 04/27/23 16:48 RBC 5.23 10^6/uL (3.85-5.65) 04/27/23 16:48 Hgb 15.50 g/dL (11.27-16.99) 04/27/23 16:48 Hct 44.9 % (37-53) 04/27/23 16:48 MCV 85.9 fl (82-101) 04/27/23 16:48 MCH 29.6 pg (27-33) 04/27/23 16:48 MCHC 34.5 g/dL (30-55) 04/27/23 16:48 RDW 12.7 % (12.1-15.1) 04/27/23 16:48 Plt Count 196 10^3/cmm (157-399) 04/27/23 16:48 MPV 11.4 fL (7.4-10.4) H 04/27/23 16:48 Neut % (Auto) 65.3 % 04/27/23 16:48 Lymph % (Auto) 24.4 % 04/27/23 16:48 [place] % (Auto) 9.0 % 04/27/23 16:48 Eos % (Auto) 0.4 % 04/27/23 16:48 Baso % (Auto) 0.4 % 04/27/23 16:48 Neut # (Auto) 3.57 10^3/uL (1.8-7.7) 04/27/23 16:48 Lymph # (Auto) 1.3 10^3/uL (0.8-4.8) 04/27/23 16:48 [place] # (Auto) 0.5 10^3/uL (0.2-0.9) 04/27/23 16:48 Eos # (Auto) 0.0 10^3/uL (0.0-0.8) 04/27/23 16:48 Baso # (Auto) 0.0 10^3/uL (0.0-0.1) 04/27/23 16:48 Nucleated RBC % (auto) 0 % 04/27/23 16:48 Nucleated RBCs # 0.0 /100WBC 04/27/23 16:48 Sodium 132 mmol/L (136-145) L 04/27/23 16:48 Potassium 4.0 mmol/L (3.5-5.1) 04/27/23 16:48 Chloride 96 mmol/L (98-107) L 04/27/23 16:48 Carbon Dioxide 26 mmol/L (22-29) 04/27/23 16:48 Anion Gap 14.0 (5-19) 04/27/23 16:48 BUN 12 mg/dL (6-20) 04/27/23 16:48 Creatinine 0.5 mg/dL (0.7-1.2) L 04/27/23 16:48 GFR Calculation 178.2 mL/min (90-130) H 04/27/23 16:48 Glucose 216 mg/dL (65-115) H 04/27/23 16:48 Calculated Osmolality 280 mOsm/kg (285-295) L 04/27/23 16:48 Calcium 8.8 mg/dL (8.5-10.5) 04/27/23 16:48 Total Bilirubin 0.6 mg/dL (0.15-1.2) 04/27/23 16:48 AST 16 U/L (0-40) 04/27/23 16:48 ALT 16 U/L (0-41) 04/27/23 16:48 Alkaline Phosphatase 90 U/L (40-130) 04/27/23 16:48 C-Reactive Protein 12.0 mg/L (0.0-4.9) H 04/27/23 16:48 Total Protein 7.7 g/dL (6.6-8.7) 04/27/23 16:48 Albumin 4.2 g/dL (3.5-5.2) 04/27/23 16:48 Globulin 3.5 g/dL (1.3-4.6) 04/27/23 16:48 Discharge Plan Discharge Patient Disposition: Home Clinical Impression: Diabetic foot ulcer, Peripheral neuropathy, Type 2 diabetes mellitus, Cellulitis Condition: Stable Prescriptions: New sulfamethoxazole-trimethoprim 800-160 mg tablet 1 tab PO BID 10 Days Qty: 20 0RF No Action (DME) Diabetic shoes See Rx Instructions .Route .MEDSUPPLY Qty: 1 0RF Rx Instructions: to HOME (DME) blood-glucose meter [Blood Glucose Monitoring] Kit See Rx Instructions .ROUTE .MEDSUPPLY Qty: 1 0RF Rx Instructions: As directed (DME) Blood Glucose Test Strip See Rx Instructions .Route Qty: 50 2RF Rx Instructions: As directed Mounjaro 5 mg/0.5 mL pen injector 5 mg SUBCUT .weekly Qty: 2 0RF Rx Instructions: 0.25 ml weekly for 2 weeks then 0.5 ml weekly (DME) diabetic shoes with 3 inserts See Rx Instructions .Route .MEDSUPPLY Qty: 1 0RF Rx Instructions: As directed to the Shoe Kasandra sulfamethoxazole-trimethoprim [Bactrim DS] 800-160 mg tablet 1 tab PO BID Qty: 14 0RF (DME) Post op shoe See Rx Instructions .Route .MEDSUPPLY Qty: 1 0RF Rx Instructions: As directed to HOME mupirocin 2 % ointment 1 applic topical TID Qty: 15 0RF ciprofloxacin HCl 500 mg tablet See Rx Instructions .ROUTE .COMPLEX Qty: 20 0RF Dose Instruction: Take 1 tablet by mouth twice daily for 10 days Rx Instructions: Take 1 tablet by mouth twice daily for 10 days metformin 500 mg tablet See Rx Instructions .ROUTE .COMPLEX Qty: 60 0RF Dose Instruction: Take 1 tablet by mouth twice daily Rx Instructions: Take 1 tablet by mouth twice daily glipizide 10 mg tablet 10 mg PO QAM Qty: 90 0RF lisinopril 10 mg tablet 10 mg PO BEDTIME Discharge Orders: Discharge ED (Routine); Ordered 04/27/23 Ordered By: Dali Ibarra Referrals: Yonatan Luque MD [Primary Care Provider] - Discharge Diet: Diabetic Discharge Activity: Increase activity as tolerated Patient Instructions: Cellulitis, Chronic Wound Care (ED) Activity Restrictions/Additional Instructions: Lab work has no acute concerns. However, given your chronic wound and issues with recurrent infection with your type 2 diabetes, we will prescribe you back Bactrim as it seems to have worked well for you in the past. Please let wound care know that you had no signs of an elevated white blood cell count today. Your vital signs are stable without any signs of fever at this time. Coding Level of Care Code ED Mind Reader for Shaun Camacho
[2023-04-27 17:43] VITALS: PULSE 97; O2SAT 100
== END 2023-04-27 17:44 | disposition home or self-care (01) ==
PROVIDERS: Emergency Medicine; Emergency Provider Physician Assistant; PCP Family Medicine Adult Medicine
DX: E11.621 Type 2 diabetes mellitus with foot ulcer (principal); E11.42 Type 2 diabetes mellitus with diabetic polyneuropathy; L03.115 Cellulitis of right lower limb; Z79.84 Long term (current) use of oral hypoglycemic drugs; E78.5 Hyperlipidemia, unspecified; I10 Essential (primary) hypertension
CPT/HCPCS: 36415; 80053; 85025; 86140; 99283

== ENCOUNTER → 2023-09-07 15:54 | Outpatient (BNVA) | payer OTHER, SELFPAY | PROVIDERS: PCP Family Medicine Adult Medicine; Visit Provider Family Medicine Adult Medicine | DX: E11.621 Type 2 diabetes mellitus with foot ulcer; L97.509 Non-pressure chronic ulcer of other part of unspecified foot with unspecified severity; I10 Essential (primary) hypertension; L03.115 Cellulitis of right lower limb; J40 Bronchitis, not specified as acute or chronic; E11.52 Type 2 diabetes mellitus with diabetic peripheral angiopathy with gangrene; I15.2 Hypertension secondary to endocrine disorders; E11.65 Type 2 diabetes mellitus with hyperglycemia; E11.69 Type 2 diabetes mellitus with other specified complication; E78.5 Hyperlipidemia, unspecified; E66.01 Morbid (severe) obesity due to excess calories; G62.81 Critical illness polyneuropathy; Z68.34 Body mass index [BMI] 34.0-34.9, adult; L97.512 Non-pressure chronic ulcer of other part of right foot with fat layer exposed | CPT/HCPCS: 83036 ==

== ENCOUNTER 2023-11-16 13:47 | Outpatient (CLI) | payer OTHER, SELFPAY ==
[2023-11-16] MEDS: iohexol 350 mg/mL 500 mL Btl (per mL) PO (15:20)
[2023-11-16] MEDS: iohexol 350 mg/mL 500 mL Btl (per mL) IV (15:21)
--- NOTE | 2023-11-16 15:30 | CT_ITS ---
WS: [id number] CT ABDOMEN AND PELVIS WITH CONTRAST HISTORY: recurrent umbilical hernia TECHNIQUE: Imaging performed of the abdomen and pelvis with IV contrast. Single phase imaging of the abdomen. Coronal and sagittal reformats are submitted. All CT scans at [facility] use at [address] one of these dose optimization techniques: automated exposure control; mA and/or kV adjustment per patient size (includes targeted exams where dose is matched to clinical indication); or iterative re construction. IV CONTRAST: Omnipaque 350; 100 mL IV. Imaging was delayed as the patient became nauseous and vomite d quickly after the injection. The images were obtained approximately 5 minutes after injection. Oral contrast: Yes. DLP: 1036.43 mGy.cm COMPARISON: None available. Lower thorax: Lung bases are clear. Heart is normal size. No hiatal hernia. Liver/biliary system: Normal size with no intrahepatic dilatation. Gallbladder: Normal. No gallstones or wall thickening. No pericholecystic fluid. Pancreas: Normal size pancreas and pancreatic duct. No adjacent inflammation. Spleen: Normal size spleen. No mass or infarct. Adrenal glands: Normal. Right kidney: Normal size kidney. Small cortical cyst 1.3 cm in the posterior mid kidney. Left kidney: No obstruction. Cortical cyst 1.2 x 2.2 cm mid to lower kidney. Aorta: Mild atherosclerosis with no aneurysm. Lymphadenopathy: None. Free fluid: None. GI tract: Normal stomach. No small bowel obstruction. Normal appendix. No colon obstruction. Mild con stipation. Abdominal wall: Ventral abdominal wall hernia at the level of the umbilicus contains omental fat only . Herniated measures 6.1 x 4.9 x 6.6 cm. Orifice is 3.8 cm. There is an additional hernia just slight ly superior to the main hernia with the orifice measuring 1.2 cm. Seen on the sagittal image. Pelvis: No free fluid or adenopathy within the pelvis. Bones: Increase in the lumbar lordosis. IMPRESSION: 1. Ventral abdominal wall hernia containing omental fat only measures 6.1 x 4.9 x 6.6 cm. Orifice me asures 3.8 cm. 2. There is an additional just slightly superior ventral abdominal wall hernia with a smaller orific e of 1.2 cm. 3. No ascites or adenopathy. 4. Normal appendix. 5. Bilateral renal cysts.
== END 2023-11-16 13:48 | disposition home or self-care (01) ==
LOC: RAD 13:47
PROVIDERS: PCP Family Medicine Adult Medicine; Visit Provider Surgery
DX: K43.9 Ventral hernia without obstruction or gangrene (principal)
CPT/HCPCS: 74177; Q9967

== ENCOUNTER 2023-11-30 14:51 | Outpatient (CLI) | payer OTHER, SELFPAY ==
[2023-11-30 15:16] LABS: Basophils % 0.5 %; Eosinophils # 0.1 10^3/uL (0.0-0.8); Eosinophils % 1.1 %; Hematocrit 48.9 % (37-53); Lymphocytes # 2.8 10^3/uL (0.8-4.8); Lymphocytes % 34.2 %; Mean Corpuscular HGB Conc 33.7 g/dL (30-55); Mean Corpuscular Hemoglobin 29.9 pg (27-33); Mean Corpuscular Volume 88.7 fl (82-101); Mean Platelet Volume 11.6 fL (7.4-10.4); Monocytes # 0.7 10^3/uL (0.2-0.9); Monocytes % 9.1 %; Neutrophils # 4.43 10^3/uL (1.8-7.7); Neutrophils % 54.6 %; Nucleated Red Blood Cells % 0 %; Platelet Count 276 10^3/cmm (157-399); Red Blood Count 5.51 10^6/uL (3.85-5.65); Red Cell Distribution Width 12.3 % (12.1-15.1); White Blood Count 8.11 10^3/uL (3.29-11.43)
[2023-11-30 15:25] LABS: Erythrocyte Sedimentation Rate 26 mm/hr (0-10)
[2023-11-30 15:34] LABS: Anion Gap 15.8 (5-19); Blood Urea Nitrogen 17 mg/dL (6-20); C Reactive Protein 18.1 mg/L (0.0-4.9); Calcium 9.7 mg/dL (8.5-10.5); Carbon Dioxide 26 mmol/L (22-29); Chloride 96 mmol/L (98-107); Glomerular Filtration Rate 120.4 mL/min (90-130); Glucose 281 mg/dL (65-115); Osmolality Calculated 288 mOsm/kg (285-295); Potassium 4.8 mmol/L (3.5-5.1); Sodium 133 mmol/L (136-145)
== END 2023-11-30 14:52 | disposition home or self-care (01) ==
LOC: LAB 14:53
PROVIDERS: PCP Family Medicine Adult Medicine; Visit Provider Thoracic Surgery (Cardiothoracic Vascular Surgery)
DX: E11.621 Type 2 diabetes mellitus with foot ulcer (principal); L97.509 Non-pressure chronic ulcer of other part of unspecified foot with unspecified severity
CPT/HCPCS: 36415; 73630; 80048; 85025; 85651; 86140; 87070; 87077; 87176; 87186; 87205

== ENCOUNTER 2023-12-12 12:21 | Emergency (ER) | payer OTHER, SELFPAY ==
[2023-12-12 12:26] VITALS: BP 116/81; PULSE 80; RESP 18; TEMP 36.6; O2SAT 98; BMI 35.8
[2023-12-12 13:32] VITALS: BP 134/74; PULSE 76; O2SAT 99
--- NOTE | 2023-12-12 13:36 | ED_ITS ---
HPI - Extremity Problem 2 General: Chief complaint: Extremity Problem,Nontraumatic Stated complaint: right leg swelling Time Seen by Provider: 12/12/23 12:23 Source: patient Mode of arrival: ambulatory Limitations: no limitations History of Present Illness: Patient is a 48-year-old male who presents to ED today for evaluation of redness to the anterior aspect of his right lower leg. Patient states he has a longstanding ulcer to the plantar aspect of the right foot that he chronically sees wound care for. Has also recently seen podiatry. Had recent XR showing no osteo. He states the redness to his leg is intermittent and seems to be worse after a long day where he is on his feet. Seems to alleviate with rest/elevation. Reports for over a week now, redness seems to be more constant and he is worried about infection. He states recently he had wound cultured which grew E. coli. Based on sensitivity reports he is currently on Cephalexin and Levaquin by his wound care provider. Has been taking these as directed. No fever or systemic symptoms. MD Complaint: extremity swelling Onset (ago): day(s) Pain Consistency: constant Location: right and lower extremity Radiation: none Relieving factors: rest and other (elevation) Exacerbating factors: other (being on his feet for long periods ) Associated symptoms: Reports no associated symptoms; Deny fever(s) Context: other (plantar foot ulcer) Review of Systems 2 Const: Denies: fever(s), chills, body aches, fatigue or malaise Musc: Reports: extremity pain and extremity swelling (R lower extremity) Skin/Breast: Reports: other (erythema anterior R lower leg; R plantar ulcer) Neuro: Denies: numbness in extremities or sensory changes PFSH ED 2 PFSH: Medical History Recurrent umbilical hernia Adult BMI 34.0-34.9 kg/sq m Onychomycosis Bronchitis Dyslipidemia associated with type 2 diabetes mellitus Uncontrolled diabetes mellitus Type 2 diabetes mellitus Diabetic foot ulcer Hypertension Surgical History History of hernia repair Umbilical hernia repair ~ 2019 Family History Other CAD (coronary artery disease) Social History (Reviewed 12/12/23 @ 14:16 by ERIC Valencia Smoking and tobacco/nicotine status: never used tobacco/nicotine Alcohol intake: never Physical Exam 2 Const: COMMON NORMALS: no acute distress, patient oriented x3, no limitations, alert and well nourished GENERAL APPEARANCE: cooperative NUTRITIONAL APPEARANCE: obese ORIENTATION/CONSCIOUSNESS: Yes awake, Yes oriented to person, Yes oriented to place and Yes oriented to time Resp: COMMON NORMALS: normal respiratory effort Cardio: COMMON NORMALS: regular rate and regular rhythm RATE: regular rate RHYTHM: regular rhythm Extremity: RIGHT LOWER EXTREMITY: Yes lower leg OTHER: mild warmth erythema affecting lower anterior R lower leg; nothing circumferential; no calf pain/swelling/- Ruel's; he has a deep plantar ulcer that is well cared for and dressed Neuro: COMMON NORMALS: patient oriented x3, moves all extremities, no focal motor deficits and no sensory deficits noted SENSORIUM/ORIENTATION: Yes alert, Yes oriented to person, Yes oriented to place and Yes oriented to time Skin: NARRATIVE SKIN EXAM: see above Course 2 Vital Signs: Vital signs: Vital Signs Temperature 97.8 F 12/12/23 12:26 Pulse Rate 74 12/12/23 16:00 Respiratory Rate 18 12/12/23 12:26 Blood Pressure 124/79 12/12/23 16:00 Pulse Oximetry 97 12/12/23 16:00 Oxygen Delivery Me thod Room Air 12/12/23 16:00 MDM - Extremity (Nontraumatic) Medical Decision Making Patient is a 48-year-old male here with a chronic wound to the plantar aspect of his right foot as well as erythema to the anterior aspect of his right lower leg that is fairly chronic although patient states it does appear slightly worse. He recently had cultures obtained from wound care which grew E. coli. Sensitivity reports were reviewed prior to him being placed on antibiotics and also reviewed by myself. He is on Cephalexin and Levaquin both showing sensitivity. At this point I would recommend he continue these antibiotics. He was given a dose of IV antibiotics here. He is not tachycardic or febrile. He has a normal white count. Patient states he has a wound care appointment on for follow up. Return to ED precautions given. Lab Data 12/12/23 15:45 12/12/23 15:45 Laboratory Results WBC 5.83 10^3/uL (3.29-11.43) 12/12/23 15:45 RBC 4.70 10^6/uL (3.85-5.65) 12/12/23 15:45 Hgb 14.10 g/dL (11.27-16.99) 12/12/23 15:45 Hct 42.5 % (37-53) 12/12/23 15:45 MCV 90.4 fl (82-101) 12/12/23 15:45 MCH 30.0 pg (27-33) 12/12/23 15:45 MCHC 33.2 g/dL (30-55) 12/12/23 15:45 RDW 12.5 % (12.1-15.1) 12/12/23 15:45 Plt Count 222 10^3/cmm (157-399) 12/12/23 15:45 MPV 11.6 fL (7.4-10.4) H 12/12/23 15:45 Neut % (Auto) 56.3 % 12/12/23 15:45 Lymph % (Auto) 31.6 % 12/12/23 15:45 [place] % (Auto) 10.5 % 12/12/23 15:45 Eos % (Auto) 1.0 % 12/12/23 15:45 Baso % (Auto) 0.3 % 12/12/23 15:45 Neut # (Auto) 3.28 10^3/uL (1.8-7.7) 12/12/23 15:45 Lymph # (Auto) 1.8 10^3/uL (0.8-4.8) 12/12/23 15:45 [place] # (Auto) 0.6 10^3/uL (0.2-0.9) 12/12/23 15:45 Eos # (Auto) 0.1 10^3/uL (0.0-0.8) 12/12/23 15:45 Baso # (Auto) 0.0 10^3/uL (0.0-0.1) 12/12/23 15:45 Nucleated RBC % (auto) 0 % 12/12/23 15:45 Nucleated RBCs # 0.0 /100WBC 12/12/23 15:45 Sodium 135 mmol/L (136-145) L 12/12/23 15:45 Potassium 4.2 mmol/L (3.5-5.1) 12/12/23 15:45 Chloride 99 mmol/L (98-107) 12/12/23 15:45 Carbon Dioxide 27 mmol/L (22-29) 12/12/23 15:45 Anion Gap 13.2 (5-19) 12/12/23 15:45 BUN 14 mg/dL (6-20) 12/12/23 15:45 Creatinine 0.6 mg/dL (0.7-1.2) L 12/12/23 15:45 GFR Calculation 143.8 mL/min (90-130) H 12/12/23 15:45 Glucose 265 mg/dL (65-115) H 12/12/23 15:45 Calculated Osmolality 290 mOsm/kg (285-295) 12/12/23 15:45 Calcium 9.1 mg/dL (8.5-10.5) 12/12/23 15:45 Total Bilirubin 0.4 mg/dL (0.15-1.2) 12/12/23 15:45 AST 12 U/L (0-40) 12/12/23 15:45 ALT 14 U/L (0-41) 12/12/23 15:45 Alkaline Phosphatase 94 U/L (40-130) 12/12/23 15:45 C-Reactive Protein 37.7 mg/L (0.0-4.9) H 12/12/23 15:45 Total Protein 7.3 g/dL (6.6-8.7) 12/12/23 15:45 Albumin 3.5 g/dL (3.5-5.2) 12/12/23 15:45 Globulin 3.8 g/dL (1.3-4.6) 12/12/23 15:45 No radiology studies performed this visit Discharge Plan Discharge Patient Disposition: Home Clinical Impression: Cellulitis Qualifiers: Site of cellulitis: extremity Site of cellulitis of extremity: lower extremity Laterality: right Qualified Code(s): L03.115 - Cellulitis of right lower limb Condition: Stable Prescriptions: No Action (DME) Diabetic shoes See Rx Instructions .Route .MEDSUPPLY Qty: 1 0RF Rx Instructions: to HOME (DME) blood-glucose meter [Blood Glucose Monitoring] Kit See Rx Instructions .ROUTE .MEDSUPPLY Qty: 1 0RF Rx Instructions: As directed (DME) Blood Glucose Test Strip See Rx Instructions .Route Qty: 50 2RF Rx Instructions: As directed (DME) diabetic shoes with 3 inserts See Rx Instructions .Route .MEDSUPPLY Qty: 1 0RF Rx Instructions: As directed to the [facility] tramadol 50 mg tablet 50 mg PO Q8H PRN (Reason: pain) Qty: 20 0RF levofloxacin 500 mg tablet 500 mg PO DAILY Qty: 14 0RF cephalexin 500 mg capsule 500 mg PO Q8H Qty: 42 0RF fluconazole [Diflucan] 100 mg tablet 100 mg PO DAILY Qty: 5 0RF (DME) Post op shoe See Rx Instructions .Route .MEDSUPPLY Qty: 1 0RF Rx Instructions: As directed to HOME mupirocin 2 % ointment 1 applic topical TID Qty: 15 0RF lisinopril 10 mg tablet 10 mg PO BEDTIME Qty: 90 1RF metformin 500 mg tablet 500 mg PO BID Qty: 60 2RF Mounjaro 5 mg/0.5 mL pen injector 5 mg SUBCUT .weekly Qty: 2 0RF Rx Instructions: 0.25 ml weekly for 2 weeks then 0.5 ml weekly guaifenesin 600 mg tablet extended release 12hr 600 mg PO BID PRN (Reason: congestion/cough) Qty: 60 1RF diclofenac sodium 75 mg tablet,delayed release (DR/EC) 75 mg PO BID PRN (Reason: pain) Qty: 60 1RF glipizide 10 mg tablet 10 mg PO QAM Qty: 90 0RF Discharge Orders: Discharge ED (Routine); Ordered 12/12/23 Ordered By: Cherrie Ramírez Referrals: Yonatan Luque MD [Primary Care Provider] - Activity Restrictions/Additional Instructions: Please follow up with your wound care appointment on as scheduled. Stand Alone Forms: Work/School Release Coding Level of Care Code ED Telephone Instrument Supervisor for Shaun Camacho
[2023-12-12] MEDS: cefUROXime 1,500 MG in sodium chloride 0.9% (plus) 50 ML 100 MG IV (13:56)
[2023-12-12] MEDS: ondansetron 2 mg/ML SDV 2 mL 4 MG IVP (14:30)
[2023-12-12 14:35] VITALS: BP 134/96; PULSE 82; O2SAT 98
[2023-12-12 15:00] VITALS: PULSE 87; O2SAT 96
[2023-12-12 15:30] VITALS: PULSE 78; O2SAT 97
[2023-12-12 16:00] VITALS: BP 124/79; PULSE 74; O2SAT 97
[2023-12-12 16:04] LABS: Basophils % 0.3 %; Eosinophils # 0.1 10^3/uL (0.0-0.8); Hematocrit 42.5 % (37-53); Lymphocytes # 1.8 10^3/uL (0.8-4.8); Lymphocytes % 31.6 %; Mean Corpuscular HGB Conc 33.2 g/dL (30-55); Mean Corpuscular Volume 90.4 fl (82-101); Mean Platelet Volume 11.6 fL (7.4-10.4); Monocytes # 0.6 10^3/uL (0.2-0.9); Monocytes % 10.5 %; Neutrophils # 3.28 10^3/uL (1.8-7.7); Neutrophils % 56.3 %; Nucleated Red Blood Cells % 0 %; Platelet Count 222 10^3/cmm (157-399); Red Cell Distribution Width 12.5 % (12.1-15.1); White Blood Count 5.83 10^3/uL (3.29-11.43)
[2023-12-12 16:20] LABS: Alanine Aminotransferase 14 U/L (0-41); Albumin Level 3.5 g/dL (3.5-5.2); Alkaline Phosphatase 94 U/L (40-130); Anion Gap 13.2 (5-19); Aspartate Amino Transferase 12 U/L (0-40); Blood Urea Nitrogen 14 mg/dL (6-20); C Reactive Protein 37.7 mg/L (0.0-4.9); Calcium 9.1 mg/dL (8.5-10.5); Carbon Dioxide 27 mmol/L (22-29); Chloride 99 mmol/L (98-107); Creatinine Clr Calc Pharmacy 195.5196; Globulin 3.8 g/dL (1.3-4.6); Glomerular Filtration Rate 143.8 mL/min (90-130); Glucose 265 mg/dL (65-115); Osmolality Calculated 290 mOsm/kg (285-295); Potassium 4.2 mmol/L (3.5-5.1); Sodium 135 mmol/L (136-145); Total Bilirubin 0.4 mg/dL (0.15-1.2); Total Protein 7.3 g/dL (6.6-8.7)
== END 2023-12-12 16:34 | disposition home or self-care (01) ==
PROVIDERS: Emergency Provider Physician Assistant; PCP Family Medicine Adult Medicine
DX: L03.115 Cellulitis of right lower limb (principal); Z79.85 Long-term (current) use of injectable non-insulin antidiabetic drugs; Z79.84 Long term (current) use of oral hypoglycemic drugs; E78.5 Hyperlipidemia, unspecified; E11.9 Type 2 diabetes mellitus without complications; I10 Essential (primary) hypertension
CPT/HCPCS: 80053; 85025; 86140; 96365; 96375; 99284; J0697; J2405

== ENCOUNTER → 2024-04-12 10:53 | Outpatient (BNVA) | payer OTHER, SELFPAY | PROVIDERS: PCP Family Medicine Adult Medicine; Visit Provider Internal Medicine | DX: E11.69 Type 2 diabetes mellitus with other specified complication (principal); E11.52 Type 2 diabetes mellitus with diabetic peripheral angiopathy with gangrene; E78.5 Hyperlipidemia, unspecified | CPT/HCPCS: 36415; 80053; 80061; 82044; 83036; 84681; 86337; 86341 ==

== ENCOUNTER → 2024-06-06 14:15 | Outpatient (BNVA) | payer OTHER, SELFPAY | PROVIDERS: PCP Family Medicine Adult Medicine; Visit Provider Thoracic Surgery (Cardiothoracic Vascular Surgery) | DX: E11.621 Type 2 diabetes mellitus with foot ulcer (principal); L97.509 Non-pressure chronic ulcer of other part of unspecified foot with unspecified severity | CPT/HCPCS: 87070; 87176; 87205 ==

== ENCOUNTER → 2024-06-13 14:39 | Outpatient (BNVA) | payer OTHER, SELFPAY | PROVIDERS: PCP Family Medicine Adult Medicine; Visit Provider Thoracic Surgery (Cardiothoracic Vascular Surgery) | DX: E11.621 Type 2 diabetes mellitus with foot ulcer (principal); L03.115 Cellulitis of right lower limb; L97.512 Non-pressure chronic ulcer of other part of right foot with fat layer exposed | CPT/HCPCS: 87070; 87176; 87205 ==

== ENCOUNTER 2024-07-23 17:44 | Emergency (ER) | payer OTHER, SELFPAY ==
[2024-07-23 18:11] VITALS: BP 133/82; PULSE 77; RESP 16; TEMP 36.7; O2SAT 98
--- NOTE | 2024-07-23 18:28 | XRR_ITS ---
PROCEDURE INFORMATION: Exam: XR Right Foot Exam date and time: 07/23/2024 6:36 PM Age: 48 years old Clinical indication: Condition or disease; Other: RT foot ulcer; Prior surgery; Surgery date: 6+ months; Surgery type: Bunionectomy TECHNIQUE: Imaging protocol: Radiologic exam of the right foot. Views: 3 or more views. COMPARISON: CR XR foot RT min 3V* [id number] 11/30/2023 2:59 PM FINDINGS: Bones/joints: There has been resection of the distal 5th metatarsal. There is cortical irregularity at the base of the 5th digit proximal phalanx and distal 5th metatarsal with adjacent soft tissue calcifications and edema. There are small marginal osteophytes across the tibiotalar joint. Marginal osteophytes and subchondral sclerotic changes are present across the articulation between the base of the 4th metatarsal and lateral cuneiform. Soft tissues: See Bones/joints finding. XR/XR foot RT min 3V* [id number] IMPRESSION: There has been resection of the distal 5th metatarsal. There is cortical irregularity at the base of the 5th digit proximal phalanx and distal 5th metatarsal with adjacent soft tissue calcifications and edema. Findings raise concern for soft tissue infection with osteomyelitis. Consider MRI of the foot with contrast for further evaluation.
--- NOTE | 2024-07-23 20:15 | ED_ITS ---
HPI - Wound/Laceration 2 General: Chief Complaint: Wound/Laceration Stated Complaint: rt foot ulcer pain Time Seen by Provider: 07/23/24 19:08 Source: patient Mode of arrival: ambulatory Limitations: no limitations History of Present Illness: 48-year-old male has a chronic diabetic ulcer to his right foot states he sees wound care for it he states he supposed to them tomorrow extensive increased pain states he is felt he had some redness as well no fevers he denies any new injury denies any drainage Associated symptoms: Denies chills, fever(s), nausea or vomiting Related Data Previous Rx's Medication Instructions Recorded Diabetic shoes #1 ea 06/02/22 Post op shoe #1 ea 09/09/22 diabetic shoes with 3 inserts #1 ea 03/31/23 mupirocin 2 % topical ointment 1 applic topical TID #15 grams 04/06/23 guaifenesin 600 mg tablet, 600 mg PO BID PRN congestion/cough 09/07/23 extended release 12 hr #60 tabs tirzepatide 5 mg/0.5 mL 5 mg (0.5 mL) SUBCUT .weekly 09/07/23 subcutaneous pen injector diabetes #2 mL (Mounjaro) diclofenac sodium 75 mg 75 mg PO BID PRN pain #60 tabs 11/28/23 tablet,delayed release fluconazole 100 mg tablet 100 mg PO DAILY #5 tabs 12/14/23 (Diflucan) tramadol 50 mg tablet 50 mg PO Q8H PRN pain #20 tabs 02/08/24 Diabetic Shoes #1 ea 03/07/24 metformin 500 mg tablet 500 mg PO BID diabetes #60 tabs 03/21/24 glipizide 10 mg tablet 10 mg PO QAM diabetes #90 tabs 04/10/24 lisinopril 10 mg tablet 10 mg PO BEDTIME 04/10/24 hypertension/kidney #90 tabs amoxicillin 875 mg tablet 875 mg PO BID 7 days #14 tabs 05/03/24 amoxicillin 500 mg-potassium 1 tab PO BID #14 tabs 06/06/24 clavulanate 125 mg tablet (Augmentin) levofloxacin 500 mg tablet 500 mg PO DAILY #10 tabs 06/13/24 Allergies Allergy/AdvReac Type Severity Reaction Status Date / Time No Known Allergies Allergy Verified 07/23/24 18:18 Review of Systems 2 Const: Denies: fever(s), chills, body aches or change in appetite ENMT: Denies: throat pain or dental pain Card: Denies: chest pain Resp: Denies: dyspnea GI: Denies: abdominal pain, nausea, vomiting or diarrhea Musc: Reports: extremity pain; Denies: neck pain or back pain Skin/Breast: Denies: rash Neuro: Denies: headache(s) PFSH ED 2 PFSH: Medical History Acute foot pain Recurrent umbilical hernia Adult BMI 34.0-34.9 kg/sq m Onychomycosis Bronchitis Dyslipidemia associated with type 2 diabetes mellitus Uncontrolled diabetes mellitus Type 2 diabetes mellitus Diabetic foot ulcer Hypertension Surgical History History of hernia repair Umbilical hernia repair ~ 2019 Family History Other CAD (coronary artery disease) Social History Smoking and tobacco/nicotine status: never used tobacco/nicotine Alcohol intake: never Physical Exam 2 Const: COMMON NORMALS: patient oriented x3 and healthy appearing HENMT: COMMON NORMALS: normocephalic and atraumatic HEAD & SCALP: n ormocephalic and atraumatic Neck/C-Spine: COMMON NORMALS: full ROM and supple Chest: COMMONS NORMALS: normal inspection of the chest Resp: COMMON NORMALS: normal respiratory effort Cardio: COMMON NORMALS: regular rate, regular rhythm and No murmurs present (Cardio) RATE: regular rate RHYTHM: regular rhythm Extremity: COMMON NORMALS: full ROM NARRATIVE EXTREMITY EXAM: Ulcer to right foot no significant erythema or drainage Neuro: COMMON NORMALS: patient oriented x3, moves all extremities and no focal motor deficits Psych: COMMON NORMALS: mental status grossly normal, Normal thought process present and cooperative THOUGHT PROCESS: Normal thought process present Skin: COMMON NORMALS: no rashes or lesions noted GENERAL SKIN EXAM: no rashes or lesions noted Course 2 Vital Signs: Vital signs: Vital Signs Temperature 98.0 F 07/23/24 18:11 Pulse Rate 74 07/23/24 20:30 Respiratory Rate 16 07/23/24 20:17 Blood Pressure 113/65 07/23/24 20:30 Pulse Oximetry 96 07/23/24 20:30 Oxygen Delivery Me thod Room Air 07/23/24 20:30 MDM - Wound/Laceration Medical Decision Making Patient presents here with diabetic foot ulcer on exam he has no drainage or increased erythema white count here is normal afebrile he has follow-up with wound care tomorrow he is to follow-up as scheduled does not require admission at this time return if worsening Medical Records I reviewed the patient's medical records. Lab Data I reviewed the patient's lab results. 07/23/24 20:18 07/23/24 20:18 Radiology Impressions Foot X-Ray 07/23/24 18:28 IMPRESSION: There has been resection of the distal 5th metatarsal. There is cortical irregularity at the base of the 5th digit proximal phalanx and distal 5th metatarsal with adjacent soft tissue calcifications and edema. Findings raise concern for soft tissue infection with osteomyelitis. Consider MRI of the foot with contrast for further evaluation. Laboratory Results WBC 6.61 10^3/uL (3.29-11.43) 07/23/24 20:18 RBC 4.68 10^6/uL (3.85-5.65) 07/23/24 20:18 Hgb 13.70 g/dL (11.27-16.99) 07/23/24 20:18 Hct 41.1 % (37-53) 07/23/24 20:18 MCV 87.8 fl (82-101) 07/23/24 20:18 MCH 29.3 pg (27-33) 07/23/24 20:18 MCHC 33.3 g/dL (30-55) 07/23/24 20:18 RDW 12.3 % (12.1-15.1) 07/23/24 20:18 Plt Count 212 10^3/cmm (157-399) 07/23/24 20:18 MPV 11.6 fL (7.4-10.4) H 07/23/24 20:18 Neut % (Auto) 49.1 % 07/23/24 20:18 Lymph % (Auto) 38.3 % 07/23/24 20:18 [place] % (Auto) 10.1 % 07/23/24 20:18 Eos % (Auto) 1.5 % 07/23/24 20:18 Baso % (Auto) 0.5 % 07/23/24 20:18 Neut # (Auto) 3.25 10^3/uL (1.8-7.7) 07/23/24 20:18 Lymph # (Auto) 2.5 10^3/uL (0.8-4.8) 07/23/24 20:18 [place] # (Auto) 0.7 10^3/uL (0.2-0.9) 07/23/24 20:18 Eos # (Auto) 0.1 10^3/uL (0.0-0.8) 07/23/24 20:18 Baso # (Auto) 0.0 10^3/uL (0.0-0.1) 07/23/24 20:18 Nucleated RBC % (auto) 0 % 07/23/24 20:18 Nucleated RBCs # 0.0 /100WBC 07/23/24 20:18 ESR 26 mm/hr (0-10) H 07/23/24 20:18 Sodium 134 mmol/L (136-145) L 07/23/24 20:18 Potassium 4.1 mmol/L (3.5-5.1) 07/23/24 20:18 Chloride 99 mmol/L (98-107) 07/23/24 20:18 Carbon Dioxide 24 mmol/L (22-29) 07/23/24 20:18 Anion Gap 15.1 (5-19) 07/23/24 20:18 BUN 11 mg/dL (6-20) 07/23/24 20:18 Creatinine 0.5 mg/dL (0.7-1.2) L 07/23/24 20:18 GFR Calculation 177.5 mL/min (90-130) H 07/23/24 20:18 Glucose 299 mg/dL (65-115) H 07/23/24 20:18 Calculated Osmolality 289 mOsm/kg (285-295) 07/23/24 20:18 Calcium 8.6 mg/dL (8.5-10.5) 07/23/24 20:18 C-Reactive Protein 39.1 mg/L (0.0-4.9) H 07/23/24 20:18 All radiology interpretation(s) finalized by discharge Discharge Plan Discharge Patient Disposition: Home Clinical Impression: Diabetic foot ulcer Condition: Stable Prescriptions: No Action (DME) Diabetic shoes See Rx Instructions .Route .MEDSUPPLY Qty: 1 0RF Rx Instructions: to HOME (DME) diabetic shoes with 3 inserts See Rx Instructions .Route .MEDSUPPLY Qty: 1 0RF Rx Instructions: As directed to the [facility] (DME) Diabetic Shoes See Rx Instructions .Route .MEDSUPPLY Qty: 1 0RF Rx Instructions: As directed fluconazole [Diflucan] 100 mg tablet 100 mg PO DAILY Qty: 5 0RF amoxicillin 875 mg tablet 875 mg PO BID 7 Days Qty: 14 0RF amoxicillin-pot clavulanate [Augmentin] 500-125 mg tablet 1 tab PO BID Qty: 14 0RF (DME) Post op shoe See Rx Instructions .Route .MEDSUPPLY Qty: 1 0RF Rx Instructions: As directed to HOME mupirocin 2 % ointment 1 applic topical TID Qty: 15 0RF Mounjaro 5 mg/0.5 mL pen injector 5 mg SUBCUT .weekly Qty: 2 0RF Rx Instructions: 0.25 ml weekly for 2 weeks then 0.5 ml weekly guaifenesin 600 mg tablet extended release 12hr 600 mg PO BID PRN (Reason: congestion/cough) Qty: 60 1RF glipizide 10 mg tablet 10 mg PO QAM Qty: 90 0RF lisinopril 10 mg tablet 10 mg PO BEDTIME Qty: 90 0RF Rx Instructions: Patient has to have an appointment levofloxacin 500 mg tablet 500 mg PO DAILY Qty: 10 0RF diclofenac sodium 75 mg tablet,delayed release (DR/EC) 75 mg PO BID PRN (Reason: pain) Qty: 60 1RF tramadol 50 mg tablet 50 mg PO Q8H PRN (Reason: pain) Qty: 20 0RF metformin 500 mg tablet 500 mg PO BID Qty: 60 0RF Discharge Orders: Discharge ED (Routine); Ordered 07/23/24 Ordered By: Joe Chu Referrals: Yonatan Luque MD [Primary Care Provider] - Discharge Diet: Advance as tolerated Discharge Activity: Resume usual activity Patient Instructions: Foot Ulcers in a Person with Diabetes (ED) Coding Level of Care Code ED Asp Net Programmer for Tejinderg Janice
[2024-07-23 20:17] VITALS: BP 124/77; PULSE 76; RESP 16; O2SAT 96
[2024-07-23 20:30] VITALS: BP 113/65; PULSE 74; O2SAT 96
[2024-07-23 20:38] LABS: Basophils % 0.5 %; Eosinophils # 0.1 10^3/uL (0.0-0.8); Eosinophils % 1.5 %; Hematocrit 41.1 % (37-53); Lymphocytes # 2.5 10^3/uL (0.8-4.8); Lymphocytes % 38.3 %; Mean Corpuscular HGB Conc 33.3 g/dL (30-55); Mean Corpuscular Hemoglobin 29.3 pg (27-33); Mean Corpuscular Volume 87.8 fl (82-101); Mean Platelet Volume 11.6 fL (7.4-10.4); Monocytes # 0.7 10^3/uL (0.2-0.9); Monocytes % 10.1 %; Neutrophils # 3.25 10^3/uL (1.8-7.7); Neutrophils % 49.1 %; Nucleated Red Blood Cells % 0 %; Platelet Count 212 10^3/cmm (157-399); Red Blood Count 4.68 10^6/uL (3.85-5.65); Red Cell Distribution Width 12.3 % (12.1-15.1); White Blood Count 6.61 10^3/uL (3.29-11.43)
[2024-07-23 20:55] LABS: Erythrocyte Sedimentation Rate 26 mm/hr (0-10)
[2024-07-23 20:56] LABS: Anion Gap 15.1 (5-19); Blood Urea Nitrogen 11 mg/dL (6-20); C Reactive Protein 39.1 mg/L (0.0-4.9); Calcium 8.6 mg/dL (8.5-10.5); Carbon Dioxide 24 mmol/L (22-29); Chloride 99 mmol/L (98-107); Creatinine Clr Calc Pharmacy 227.6683; Glomerular Filtration Rate 177.5 mL/min (90-130); Glucose 299 mg/dL (65-115); Osmolality Calculated 289 mOsm/kg (285-295); Potassium 4.1 mmol/L (3.5-5.1); Sodium 134 mmol/L (136-145)
[2024-07-23] MEDS: sulfamethoxazole-trimeth DS 160-800 mg Tablet 1 TAB PO (21:30)
[2024-07-23 21:45] VITALS: BP 109/67; PULSE 68; O2SAT 96
== END 2024-07-23 21:46 | disposition home or self-care (01) ==
PROVIDERS: Emergency Provider Emergency Medicine; PCP Family Medicine Adult Medicine
DX: E11.621 Type 2 diabetes mellitus with foot ulcer (principal); L97.519 Non-pressure chronic ulcer of other part of right foot with unspecified severity; E78.5 Hyperlipidemia, unspecified; I10 Essential (primary) hypertension
CPT/HCPCS: 73630; 80048; 85025; 85651; 86140

== ENCOUNTER 2024-07-31 14:18 | Outpatient (CLI) | payer OTHER, SELFPAY ==
--- NOTE | 2024-07-31 14:29 | XR_ITS ---
WS: [id number] Exam: XR foot LT min 3V* [id number] Date/Time of Exam: 07/31/2024 2:48 PM Reason For Exam: diabetic ulcer There is a comminuted displaced fracture of the proximal phalanx of the great toe which extends into the MP joint. This appears to represent a recent fracture. No other fractures are seen. No bone destr uction. Soft tissue swelling of the forefoot and the great toe. XR/XR foot LT min 3V* [id number] IMPRESSION: 1. Comminuted displaced fracture of the first proximal phalanx which extends in to the first MP joint. 2. No bone destruction.
== END 2024-07-31 14:19 | disposition home or self-care (01) ==
PROVIDERS: PCP Family Medicine Adult Medicine; Visit Provider Thoracic Surgery (Cardiothoracic Vascular Surgery)
DX: E11.621 Type 2 diabetes mellitus with foot ulcer (principal); L97.512 Non-pressure chronic ulcer of other part of right foot with fat layer exposed; S92.412A Displaced fracture of proximal phalanx of left great toe, initial encounter for closed fracture; X58.XXXA Exposure to other specified factors, initial encounter
CPT/HCPCS: 73630; 87070; 87077; 87176; 87186; 87205

== ENCOUNTER 2024-08-05 05:56 | Day surgery (SDC) | payer OTHER, SELFPAY ==
--- NOTE | 2024-08-04 08:57 | ANES.PREANE2 ---
Pre-Anesthetic Assessment Height/Weight: Height 1.8 m Operation Date: 08/05/24 07:00 Proposed Procedures p ORIF Phalanx ORIF Proximal Phalanx(Left) - Kodak Hernández DPM s Incision bone cortex right fifth metatarsal(Left) - Kodak Hernández DPM Familial anesthetic complications: None Was Beta Thi taken within 24 hours: N/A Was Clonidine taken within 24 hours: N/A Last intake: > 8hrs Social No alcohol and No tobacco Exam alert, oriented x 3, clear to auscultation bilaterally and regular rate & rhythm Airway Mallampati: Class II Dentition: chipped (back Left) CV/HEM Hypertension Metabolic Diabetes Mellitus, Hyperlipidemia and Morbid Obesity Anesthetic Plan ASA status: 3 Anesthesia: MAC Risk of > 500 ml blood loss (7ml/kg in children): No Medications/Allergies Home Medications Medication Instructions Recorded Confirmed Last Taken Type Diabetic shoes #1 ea 06/02/22 08/01/24 Unknown Rx Post op shoe #1 ea 09/09/22 08/01/24 Unknown Rx diabetic shoes with 3 inserts #1 ea 03/31/23 08/01/24 Unknown Rx guaifenesin 600 mg tablet, 600 mg PO BID PRN congestion/cough 09/07/23 08/01/24 Unknown Rx extended release 12 hr #60 tabs diclofenac sodium 75 mg 75 mg PO BID PRN pain #60 tabs 11/28/23 08/02/24 08/02/24 Rx tablet,delayed release tramadol 50 mg tablet 50 mg PO Q8H PRN pain #20 tabs 02/08/24 08/05/24 08/03/24 Rx Diabetic Shoes #1 ea 03/07/24 08/01/24 Unknown Rx metformin 500 mg tablet 500 mg PO BID diabetes #60 tabs 03/21/24 08/02/24 08/02/24 Rx glipizide 10 mg tablet 10 mg PO QAM diabetes #90 tabs 04/10/24 08/02/24 08/02/24 Rx lisinopril 10 mg tablet 10 mg PO BEDTIME 04/10/24 08/05/24 08/04/24 Rx hypertension/kidney #90 tabs amoxicillin 875 mg tablet 875 mg PO BID 7 days #14 tabs 05/03/24 08/05/24 08/04/24 Rx tramadol 50 mg tablet 50 mg PO Q6H PRN pain #12 tabs 08/05/24 Unknown Rx Allergies Allergy/AdvReac Type Severity Reaction Status Date / Time No Known Allergies Allergy Verified 08/01/24 15:50 PFSH Anesthesia Medical History Acute foot pain Recurrent umbilical hernia Adult BMI 34.0-34.9 kg/sq m Onychomycosis Bronchitis Dyslipidemia associated with type 2 diabetes mellitus Uncontrolled diabetes mellitus Type 2 diabetes mellitus Diabetic foot ulcer Hypertension Surgical History History of hernia repair Umbilical hernia repair ~ 2019 Family History Other CAD (coronary artery disease) Social History Smoking and tobacco/nicotine status: never used tobacco/nicotine Alcohol intake: never Data Anesthesia Cardiac Studies: No Data to Display
[2024-08-05] VITALS (8 sets, daily range): BP systolic 99–138; BP diastolic 61–92; PULSE 58–99; RESP 15–17; TEMP 36.2–36.6; O2SAT 95–99; BMI 33.7
--- NOTE | 2024-08-05 | XR_ITS ---
WS: [id number] Left foot, C-arm fluoroscopy views, 08/05/2024 Clinical Data: AMBAR PICS Comparison: Left foot, 07/31/2024 Findings: Dr. Hernández performed surgery on the left great toe proximal phalanx. XR/XR foot LT 2V [id number] Impression: Surgery on the left great toe proximal phalanx.
[2024-08-05 06:25] LABS: Glucose Point of Care 290 mg/dL (70-110)
[2024-08-05] MEDS: sodium chloride 0.9% 1,000 ML 30 ML IV (06:32)
[2024-08-05] MEDS: acetaminophen 1,000 MG/100 ML PIGGYBACK 400 MG IV (06:34)
[2024-08-05] MEDS: gabapentin 300 mg Capsule PO (06:37)
--- NOTE | 2024-08-05 06:46 | P.HPUD_ITS ---
Surgery/Procedure H&P Update DATE OF PROCEDURE: August 05, 2024 DATE H&P PERFORMED: 08/01/24 H&P UPDATE INFORMATION: I have reviewed H&P completed within last 30 days, I have examined patient prior to procedure, No changes to prior documentation and H&P is in 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
[2024-08-05] MEDS: insulin regular-human 100 units/1 mL 10 UNIT IVP (06:53)
[2024-08-05] MEDS: ceFAZolin 2,000 mg SDV 2000 MG IVP (07:04)
[2024-08-05] MEDS: BUPivacaine 0.5% INJ 30 mL XX (07:12)
--- NOTE | 2024-08-05 09:03 | P.OP_ITS ---
Operative Report Date of procedure: August 05, 2024 Surgeon: Kodak Hernández DPM Procedure: Date of procedure: 08/05/2024 Pre-op diagnosis: Left hallux fracture, right foot fifth metatarsal osteomyelitis Post-op diagnosis: Same Post-op findings: Comminuted fracture left hallux proximal phalanx, osteomyelitis head of fifth metatarsal right foot as well as base of proximal phalanx right fifth digit. Procedure done: 1. ORIF left hallux fracture CPT 74590 2. Incision bone cortex right fifth metatarsal CPT 15659 Implants: Mini comp 2.0 plate with locking screws x 5 from [employer] Specimens removed: Proximal phalanx right fifth digit and fifth metatarsal head right foot Surgeon: Dr. Kodak Hernández DPM Purchase Analyst: Jarrell Estimated blood loss: 10 cc Tourniquet time: 1. Left foot 56 minutes 2. Right foot 20 minutes Complications: None Patient is a 48-year-old male that has a history of chronic ulceration right foot with underlying osteomyelitis. The patient has had the aforementioned chief complaint for some time. Conservative treatment measures have been attempted and the patient has opted for surgical intervention at this time. Patient also has comminuted fracture proximal phalanx left hallux necessitating open reduction internal fixation. A lengthy discussion regarding the procedure, including risks and complications has been had with the patient and is noted in the recent clinic note. Written and verbal consent have been obtained. All patient questions have been answered to the patient?s satisfaction. No written or verbal guarantees have been given or implied. The patient has been NPO since midnight. The history has been reviewed and the history and physical is current. The signed consent was confirmed and placed in the patient chart. Patient imaging has been reviewed and is consistent with the diagnosis. Under mild sedation, the patient was brought into the operating room and placed on the table in the supine position. IV antibiotics were given by the anesthesia team as preoperative surgical prophylaxis. IV sedation was then performed by the anesthesiateam. A local field block was performed using 0.5% Marcaine plain. A pneumatic tourniquet was then placed about the left ankle. The operative extremity was then prepped and draped in the usual fashion. The extremity was then elevated and exsanguinated before the tourniquet was inflated to 250 mmHg. After inflation, the following procedure was then performed. Attention was directed to the left foot where a 7 cm incision was made overlying the first metatarsophalangeal joint using #15 blade. Dissection was carried down through subcutaneous and superficial fascia to the level of the first metatarsophalangeal joint capsule which was incised to expose the underlying first metatarsophalangeal joint. There was noted to be comminuted fracture of the base of the proximal phalanx. Rongeur and Lowell elevator was used to remove hematoma formation. Next, using a reduction clamp the proximal phalanx was reduced to appropriate anatomic position before being temporarily fixated with guidewires. Next a many comprehensive fixation 2.0 plate from [employer] was positioned on the dorsal aspect of the proximal phalanx to maintain permanent fixation. This was done per manufacture protocol with 2.0 locking screws. Good position of the plate and screws was noted clinically as well as on C-arm imaging. Site was irrigated with copious months of sterile saline before attention was directed to closure. Deep tissue including capsular closure was performed with 3-0 Vicryl followed by subcuticular closure with 4-0 Vicryl and skin closure with 4-0 nylon in running interlocking fashion. Incision site was dressed with Xeroform, 4 x 4 gauze, Kerlix, Mitesh. The tourniquet was let down and good hyperemic response was noted to all digits of the left foot. The patient was redraped and paint scrub prep was performed to the right lower extremity prior to draping. There was noted to be a chronic full-thickness ulceration to the plantar aspect of the fifth metatarsal. The tourniquet was inflated to 250 mmHg to the right ankle. No exsanguination was performed. A #15 blade was used to make a 7 cm incision over the right fifth metatarsophalangeal joint down to the level of bone. The cortex of the fifth metatarsal was incised to expose the underlying fifth metatarsal head. It was noted to be dark and discolored with degenerative changes consistent with osteomyelitis. The base the proximal phalanx was also examined and noted to be degenerative consistent with osteomyelitis. Sagittal bone saw was used to r esect the base of the proximal phalanx which was passed from the operative field and sent as surgical specimen. Combination of curette and osteotome and sagittal saw was used to remove the distal aspect of the fifth metatarsal and this was also passed from the operative field be sent as surgical specimen. The site was irrigated with copious months sterile saline before attention was directed to closure. The remaining tissue appeared healthy and viable in nature. Deep tissue was closed with 3-0 Vicryl followed by skin closure with 3- 0 nylon in horizontal mattress and retention suture type fashion. The incision site and plantar wound were dressed with Xeroform, 4 x 4 gauze, Kerlix, Mitesh. The tourniquet was let down good hyperemic response was noted to all digits of the right foot. The patient was placed in a postoperative shoe to the right foot as well as a cam boot to the left foot The patient tolerated the procedure and anesthesia well and without complication. The patient was transported from the operating room to the recovery room with vital signs stable and vascular status intact to all digits of bilateral lower extremities. The patient was given both written and verbal i nstructions to remain weightbearing as tolerated to the operative extremity, to keep dressings/splint clean, dry and intact and to take pain medication as directed. The patient will follow-up in the outpatient setting at their scheduled appointment. The patient was discharged with my personal number and was instructed to call if any questions or issues should arise. They were discharged home once anesthesia criteria was met.
--- NOTE | 2024-08-05 10:15 | ANE.PACU2 ---
Inpatient post-anesthesia follow up: Airway intact: Yes Vital signs: Temperature 97.9 F Pulse Rate 62 Respiratory Rate 16 Blood Pressure 114/66 Pulse Oximetry 98 Oxygen Delivery Me thod Room Air Oxygen Flow Rate 6 Fraction of Inspir ed Oxygen Hydration adequate: Yes Nausea and vomiting: No Pain level: 1 Mental status: Baseline
== END 2024-08-05 10:15 | disposition home or self-care (01) ==
PROVIDERS: PCP Family Medicine Adult Medicine; Visit Provider Podiatrist Foot & Ankle Surgery
PROC: (CPT 28505; principal; 2024-08-05 07:00)
PROC: (CPT 28505; 2024-08-05 07:00)
DX: S92.412A Displaced fracture of proximal phalanx of left great toe, initial encounter for closed fracture (principal); X58.XXXA Exposure to other specified factors, initial encounter; M86.8X7 Other osteomyelitis, ankle and foot; E11.621 Type 2 diabetes mellitus with foot ulcer; L97.512 Non-pressure chronic ulcer of other part of right foot with fat layer exposed; G62.81 Critical illness polyneuropathy; E11.65 Type 2 diabetes mellitus with hyperglycemia
CPT/HCPCS: 28505; 28005; 36416; 73620; 76000; 82962; 88305; 88311; C1713; J0131; J0690; J1815; J2250; J2704; J3010; J3490; J7030

== ENCOUNTER → 2024-08-12 14:24 | Outpatient (BNVA) | payer OTHER, SELFPAY | PROVIDERS: PCP Family Medicine Adult Medicine; Visit Provider Podiatrist Foot & Ankle Surgery | DX: S92.412D Displaced fracture of proximal phalanx of left great toe, subsequent encounter for fracture with routine healing; X58.XXXD Exposure to other specified factors, subsequent encounter; M86.9 Osteomyelitis, unspecified; E11.621 Type 2 diabetes mellitus with foot ulcer; L97.512 Non-pressure chronic ulcer of other part of right foot with fat layer exposed; G62.81 Critical illness polyneuropathy; E11.65 Type 2 diabetes mellitus with hyperglycemia; Z79.84 Long term (current) use of oral hypoglycemic drugs | CPT/HCPCS: 73630 ==

== ENCOUNTER → 2024-08-19 15:56 | Outpatient (BNVA) | payer OTHER, SELFPAY | PROVIDERS: PCP Family Medicine Adult Medicine; Visit Provider Podiatrist Foot & Ankle Surgery | DX: S92.412A Displaced fracture of proximal phalanx of left great toe, initial encounter for closed fracture (principal); Z98.890 Other specified postprocedural states; E11.621 Type 2 diabetes mellitus with foot ulcer; L97.512 Non-pressure chronic ulcer of other part of right foot with fat layer exposed; X58.XXXA Exposure to other specified factors, initial encounter; G62.81 Critical illness polyneuropathy; E11.65 Type 2 diabetes mellitus with hyperglycemia; Z79.84 Long term (current) use of oral hypoglycemic drugs; M86.171 Other acute osteomyelitis, right ankle and foot | CPT/HCPCS: 73630 ==

== ENCOUNTER → 2024-08-26 15:24 | Outpatient (BNVA) | payer OTHER, SELFPAY | PROVIDERS: PCP Family Medicine Adult Medicine; Visit Provider Podiatrist Foot & Ankle Surgery | DX: S92.412D Displaced fracture of proximal phalanx of left great toe, subsequent encounter for fracture with routine healing; X58.XXXD Exposure to other specified factors, subsequent encounter; Z98.890 Other specified postprocedural states; E11.621 Type 2 diabetes mellitus with foot ulcer; L97.512 Non-pressure chronic ulcer of other part of right foot with fat layer exposed; M79.673 Pain in unspecified foot; G62.81 Critical illness polyneuropathy; E11.65 Type 2 diabetes mellitus with hyperglycemia; T81.31XA Disruption of external operation (surgical) wound, not elsewhere classified, initial encounter; Y83.8 Other surgical procedures as the cause of abnormal reaction of the patient, or of later complication, without mention of misadventure at the time of the procedure; Z79.84 Long term (current) use of oral hypoglycemic drugs; M86.171 Other acute osteomyelitis, right ankle and foot | CPT/HCPCS: 73630 ==

== ENCOUNTER 2024-09-02 05:49 | Day surgery (SDC) | payer OTHER, SELFPAY ==
[2024-09-02] VITALS (7 sets, daily range): BP systolic 97–138; BP diastolic 63–92; PULSE 66–84; RESP 16–20; TEMP 36.1–36.7; O2SAT 93–98
--- NOTE | 2024-09-02 06:10 | P.ANESASSM_ITS ---
Pre-Anesthetic Assessment Height/Weight: Height 5 ft 11 in Weight 242 lb Temp Pulse Resp BP Pulse Ox O2 Del Method 97 F L 84 18 138/92 98 Room Air 09/02/24 06:02 09/02/24 06:02 09/02/24 06:02 09/02/24 06:02 09/02/24 06:02 09/02/24 06:02 Preop Diagnosis: infected hardware Operation Date: 09/02/24 07:10 Proposed Procedures p hallux hardware removal(Left) - Kodak Hernández DPM Was Beta Thi taken within 24 hours: N/A Was Clonidine taken within 24 hours: N/A Last intake: Intake Last Liquid Date 09/01/24 Last Liquid Time 23:59 Last Solid Date 09/01/24 Last Solid Time 18:00 Social No alcohol and No tobacco Exam alert, oriented x 3, clear to auscultation bilaterally and regular rate & rhythm Airway Submandibular: within normal limits Cervical ROM: within normal limits Mallampati: Class II Dentition: full Comments: Comments: Multiple missing teeth, denies any loose Anesthetic Plan ASA status: 3 Anesthesia: MAC Other: Patient reports no prior issues with anesthesia, similar procedure under MAC anesthetic in July without issues NPO since yesterday History of type 2 diabetes on metformin BMI 33.8 Hypertension on lisinopril. Preop BP 138/92 Labs reviewed 07/23/2024 and acceptable for procedure EKG showing the left anterior fascicular block Plan for MAC anesthetic with local via surgeon Medications/Allergies Home Medications Medication Instructions Recorded Confirmed Last Taken Type Diabetic shoes #1 ea 06/02/22 08/26/24 Unknown Rx Post op shoe #1 ea 09/09/22 08/26/24 Unknown Rx diabetic shoes with 3 inserts #1 ea 03/31/23 08/26/24 Unknown Rx tramadol 50 mg tablet 50 mg PO Q8H PRN pain #20 tabs 02/08/24 09/02/24 08/03/24 Rx Diabetic Shoes #1 ea 03/07/24 08/26/24 Unknown Rx metformin 500 mg tablet 500 mg PO BID diabetes #60 tabs 03/21/24 09/02/24 09/01/24 Rx glipizide 10 mg tablet 10 mg PO QAM diabetes #90 tabs 04/10/24 09/02/24 09/01/24 Rx lisinopril 10 mg tablet 10 mg PO BEDTIME 04/10/24 09/02/24 09/01/24 Rx hypertension/kidney #90 tabs tramadol 50 mg tablet 50 mg PO Q6H PRN pain #12 tabs 08/05/24 09/02/24 Unknown Rx doxycycline monohydrate 100 mg 100 mg PO BID 10 days #20 caps 08/26/24 09/02/24 09/01/24 Rx capsule Allergies Allergy/AdvReac Type Severity Reaction Status Date / Time No Known Allergies Allergy Verified 08/26/24 15:25 [facility] Anesthesia Medical History Acute foot pain Recurrent umbilical hernia Adult BMI 34.0-34.9 kg/sq m Onychomycosis Bronchitis Dyslipidemia associated with type 2 diabetes mellitus Uncontrolled diabetes mellitus Type 2 diabetes mellitus Diabetic foot ulcer Hypertension Surgical History History of hernia repair Umbilical hernia repair ~ 2019 Family History Other CAD (coronary artery disease) Social History Smoking and tobacco/nicotine status: never used tobacco/nicotine Alcohol intake: never Data Anesthesia Cardiac Studies: No Data to Display
[2024-09-02] MEDS: sodium chloride 0.9% 1,000 ML 30 ML IV (06:15)
[2024-09-02] MEDS: acetaminophen 1,000 MG/100 ML PIGGYBACK 400 MG IV (06:16)
[2024-09-02] MEDS: gabapentin 300 mg Capsule PO (06:19)
[2024-09-02 06:26] LABS: Glucose Point of Care 249 mg/dL (70-110)
--- NOTE | 2024-09-02 06:38 | P.HPUD_ITS ---
Surgery/Procedure H&P Update DATE OF PROCEDURE: September 02, 2024 DATE H&P PERFORMED: 08/26/24 H&P UPDATE INFORMATION: I have reviewed H&P completed within last 30 days, I have examined patient prior to procedure, No changes to prior documentation and H&P is in [facility] EMR on date indicated PREOP DIAGNOSIS: infected hardware PLANNED PROCEDURE: Operation Date: 09/02/24 07:10 Proposed Procedures p hallux hardware removal(Left) - Kodak Hernández DPM
[2024-09-02] MEDS: ceFAZolin 2,000 mg SDV 2000 MG IVP (07:08)
[2024-09-02] MEDS: BUPivacaine 0.5% INJ 30 mL 20 ML INJECTION (07:10)
--- NOTE | 2024-09-02 07:36 | W.PM.BPON ---
Date of procedure: 09/02/2024 Surgeon name: Dr. Kodak Hernández D.P.M. Seismograph Shooter(s) name(s): Jarrell Procedure(s) performed: Hardware removal left foot Description of findings: Failed orthopedic hardware left foot Estimated blood loss: 2 cc Tourniquet time: 14 minutes Specimen(s) removed: No specimen Post-operative diagnosis: Failure orthopedic hardware left foot
--- NOTE | 2024-09-02 07:38 | P.OP_ITS ---
Operative Report Date of procedure: September 02, 2024 Surgeon: Kodak Hernández DPM Procedure: Date of procedure: 09/02/2024 Pre-op diagnosis: Orthopedic hardware failure left foot Post-op diagnosis: Same Post-op findings: Failed orthopedic hardware left foot Procedure done: Hardware removal left foot CPT 72513 Implants: None Specimens removed: No specimen removed Surgeon: Dr. Kodak Hernández DPM Honey Extractor: Jarrell Estimated blood loss: 2 cc Tourniquet time: 14-minutes Complications: None Patient is a 48-year-old male that has a history of failed orthopedic hardware left foot. The patient has had the aforementioned chief complaint for some time. Conservative treatment measures have been attempted and the patient has opted for surgical intervention at this time. A lengthy discussion regarding the procedure, including risks and complications has been had with the patient and is noted in the recent clinic note. Written and verbal consent have been obtained. All patient questions have been answered to the patient?s satisfact ion. No written or verbal guarantees have been given or implied. The patient has been NPO since midnight. The history has been reviewed and the history and physical is current. The signed consent was confirmed and placed in the patient chart. Patient imaging has been reviewed and is consistent with the diagnosis. Under mild sedation, the patient was brought into the operating room and placed on the table in the supine position. IV antibiotics were given by the anesthesia team as preoperative surgical prophylaxis. MAC sedation was then performed by the anesthesiateam. A local field block was performed using 0.5% Marcaine plain. A pneumatic tourniquet was then placed about the left ankle. The operative extremity was then prepped and draped in the usual fashion. The extremity was then elevated and exsanguinated before the tourniquet was inflated to 250 mmHg. After inflation, the following procedure was then performed. Attention was directed to the left 1st metatarsophalangeal joint where a 5 cm incision was made using a #15 blade. Incision was made full thickness down to the level of orthopedic hardware. It is important to note that a single screw was removed in clinic prior to today's procedure. Sharp dissection was carried out using a #15 blade to expose the entirety of the plate. There was noted to be comminution and displacement of the proximal phalanx fracture. The plate and locking screws were removed from the foot without incident and passed from the operative field. No hardware was left intact. The site was irrigated with copious amounts of sterile saline. The incision was then closed using 3-0 nylon in horizontal mattress fashion. The incision was then dressed with xeroform, 4x4 gauze, kerlix and jeffrey. The tourniquet was let down and good hyperemic response w as noted to all digits of the left foot. The patient tolerated the procedure and anesthesia well and without complication. The patient was transported from the operating room to the recovery room with vital signs stable and vascular status intact to all digits of the left foot. The patient was given both written and verbal instructions to remain minimally weight bearing in post op shoe to the operative extremity, to keep dressings/splint clean, dry and intact and to take pain medication as directed. The patient will follow-up in the outpatient setting at their scheduled appointment. The patient was discharged with my personal number and was instructed to call if any questions or issues should arise. They were discharged home once anesthesia criteria was met.
--- NOTE | 2024-09-02 09:30 | ANE.PACU2 ---
Inpatient post-anesthesia follow up: Airway intact: Yes Vital signs: Temperature 97.9 F Pulse Rate 68 Respiratory Rate 18 Blood Pressure 111/63 Pulse Oximetry 94 Oxygen Delivery Me thod Room Air Oxygen Flow Rate Fraction of Inspir ed Oxygen Hydration adequate: Yes Nausea and vomiting: No Pain level: 1 Mental status: Baseline
== END 2024-09-02 09:30 | disposition home or self-care (01) ==
PROVIDERS: Visit Provider Podiatrist Foot & Ankle Surgery
PROC: (CPT 20680; principal; 2024-09-02 07:00)
DX: T84.89XA Other specified complication of internal orthopedic prosthetic devices, implants and grafts, initial encounter (principal); E11.9 Type 2 diabetes mellitus without complications; Z79.84 Long term (current) use of oral hypoglycemic drugs; I10 Essential (primary) hypertension; E78.5 Hyperlipidemia, unspecified
CPT/HCPCS: 20680; 36416; 82962; J0131; J0690; J2250; J2704; J3010; J3490; J7030

== ENCOUNTER → 2024-10-14 15:40 | Outpatient (BNVA) | payer OTHER, SELFPAY | PROVIDERS: PCP Family Medicine; Visit Provider Podiatrist Foot & Ankle Surgery | DX: T81.31XA Disruption of external operation (surgical) wound, not elsewhere classified, initial encounter (principal); X58.XXXA Exposure to other specified factors, initial encounter | CPT/HCPCS: 87070 ==

== ENCOUNTER 2024-11-13 19:55 | Emergency (ER) | payer OTHER, SELFPAY ==
[2024-11-13 20:15] VITALS: BP 131/88; PULSE 96; RESP 17; TEMP 37.8; O2SAT 97; BMI 33.7
[2024-11-13 20:37] LABS: Erythrocyte Sedimentation Rate 5 mm/hr (0-10)
--- NOTE | 2024-11-13 20:52 | ED_ITS ---
HPI - Male Genitourinary 2 General: Chief complaint: Urogenital-Male Stated complaint: shivering infection in foot, couldnt reach albaro Time Seen by Provider: 11/13/24 20:27 History of Present Illness: Patient presents to the ER with sore spot in his right groin and he says his right foot feels infected. He recently ran out of his antibiotic Augmentin 875 but he did take 2 clindamycin 30o milligrams and 2 doxycycline 100 today patient went to bed this morning feeling fine and woke up about 1:00 with complaints of pain. Patient does have chronic wound that he is seeing wound care and Dr. Hernández for on his right foot. Upon arrival patient's temperature was 100.0. Patient denies any pain burning frequency with urination. Related Data Previous Rx's ?Medication ?Instructions ?Recorded Diabetic shoes #1 ea 06/02/22 Post op shoe #1 ea 09/09/22 diabetic shoes with 3 inserts #1 ea 03/31/23 tramadol 50 mg tablet 50 mg PO Q8H PRN pain #20 ta bs 02/08/24 Diabetic Shoes #1 ea 03/07/24 tramadol 50 mg tablet 50 mg PO Q6H PRN pain #12 ta bs 08/05/24 doxycycline monohydrate 100 mg See Rx Instructions .Ro twenty-nine palms 10/03/24 capsule .COMPLEX #20 caps glipizide 10 mg tablet 10 mg PO QAM diabetes #90 ta bs 10/08/24 lisinopril 10 mg tablet 10 mg PO BEDTIME 10/08/24 hypertension/kidney #90 tabs metformin 500 mg tablet 500 mg PO BID diabetes #60 t abs 10/08/24 amoxicillin 875 mg-potassium 1 tab PO Q12H #14 tabs clavulanate 125 mg tablet amoxicillin 875 mg-potassium 1 tab PO Q12H #20 tabs clavulanate 125 mg tablet Allergies Allergy/AdvReac Type Severity Reaction Status Date / Time No Known Allergies Allergy Verified 10/21/24 13:29 Review of Systems 2 General: Reports: 10 or more systems reviewed and unremarkable except in HPI and below PFSH ED 2 PFSH: Medical History Acute foot pain Recurrent umbilical hernia Adult BMI 34.0-34.9 kg/sq m Onychomycosis Bronchitis Dyslipidemia associated with type 2 diabetes mellitus Uncontrolled diabetes mellitus Type 2 diabetes mellitus Diabetic foot ulcer Hypertension Surgical History History of hernia repair Umbilical hernia repair ~ 2019 Family History Other CAD (coronary artery disease) Social History Smoking and tobacco/nicotine status: never used tobacco/nicotine Alcohol intake: never Physical Exam 2 Const: COMMON NORMALS: no acute distress, average body habitus, patient oriented x3, no limitations, healthy appearing, alert and well nourished HENMT: COMMON NORMALS: normocephalic, atraumatic, hearing grossly normal bilaterally, external ears normal, Normal external nose present, moist oral mucous membranes and oropharynx normal HEAD & SCALP: normocephalic and atraumatic NOSE: Normal external nose present EXTERNAL EAR: Yes external ears normal Neck/C-Spine: COMMON NORMALS: no JVD Chest: COMMONS NORMALS: normal inspection of the chest and normal palpation of entire chest wall Resp: COMMON NORMALS: normal respiratory effort, No retractions, No use of accessory muscles and clear to auscultation bilaterally AUSCULTATION: clear to auscultation bilaterally Cardio: COMMON NORMALS: no JVD, regular rate, regular rhythm, S1 normal heart sound present, S2 normal heart sound present, No gallops present (Cardio), No clicks present (Cardio), No murmurs present (Cardio) and No rub (Cardio) R ATE: regular rate RHYTHM: regular rhythm HEART SOUNDS: S1 normal heart sound present and S2 normal heart sound present GI: COMMON NORMALS: Normal to inspection, nondistended, normoactive bowel sounds present, Soft to palpation, non-tender, No hepatosplenomegaly present and no masses PALPATION: Yes Soft to palpation and Yes No hepatosplenomegaly present : OTHER: Positive right inguinal lymphadenopathy Neuro: COMMON NORMALS: patient oriented x3 SENSORIUM/ORIENTATION: Yes alert Course 2 Vital Signs: Vital signs: Vital Signs Temperature 100.0 F H 11/13/24 20:15 Pulse Rate 96 11/13/24 20:15 Respiratory Rate 17 11/13/24 20:15 Blood Pressure 131/88 11/13/24 20:15 Pulse Oximetry 97 11/13/24 20:15 Oxygen Delivery Me thod Room Air 11/13/24 20:15 MDM - Male Medical Decision Making Patient's lab work was essentially unremarkable for the patient. Patient will be given 1 Augmentin here and a prescription sent to his pharmacy and he can follow-up with Dr. Hernández in the wound clinic. Medical Records I reviewed the patient's medical records. Lab Data I reviewed the patient's lab results. 11/13/24 20:29 11/13/24 20: Laboratory Results WBC 7.55 10^3/uL (3.29-11.43) 11/13/24: RBC 5.00 10^6/uL (3.85-5.65) 11/13/24 20: Hgb 14.80 g/dL (11.27-16.99) 11/13/24 20: Hct 44.2 % (37-53) 11/13/24: MCV 88.4 fl (82-101) 11/13/24 20: MCH 29.6 pg (27-33) 11/13/24 20: MCHC 33.5 g/dL (30-55) 11/13/24 20: RDW 13.3 % (12.1-15.1) 11/13/24 20: Plt Count 182 10^3/cmm (157-399) 11/13/24 20: MPV 11.8 fL (7.4-10.4) H 11/13/24: Neut % (Auto) 66.2 % 11/13/24: Lymph % (Auto) 19.9 % 11/13/24: Edgar % (Auto) 10.9 % 11/13/24: Eos % (Auto) 2.0 % 11/13/24: Baso % (Auto) 0.5 % 11/13/24: Neut # (Auto) 5.00 10^3/uL (1.8-7.7) 11/13/24 20: Lymph # (Auto) 1.5 10^3/uL (0.8-4.8) 11/13/24: Edgar # (Auto) 0.8 10^3/uL (0.2-0.9) 11/13/24 20: Eos # (Auto) 0.2 10^3/uL (0.0-0.8) 11/13/24 20: Baso # (Auto) 0.0 10^3/uL (0.0-0.1) 11/13/24 20: Nucleated RBC % (auto) 0 % 11/13/24 20: Nucleated RBCs # 0.0 /100WBC 11/13/24 20: ESR 5 mm/hr (0-10) 11/13/24 20: Sodium 132 mmol/L (136-145) L 11/13/24: Potassium 4.0 mmol/L (3.5-5.1) 11/13/24 20: Chloride 95 mmol/L (98-107) L 11/13/24: Carbon Dioxide 25 mmol/L (22-29) 11/13/24: Anion Gap 16.0 (5-19) 11/13/24 20: BUN 11 mg/dL (6-20) 11/13/24 20: Creatinine 0.6 mg/dL (0.7-1.2) L 11/13/24 20: GFR Calculation 143.2 mL/min (90-130) H 11/13/24 20: Glucose 227 mg/dL (65-115) H 11/13/24 20: Calculated Osmolality 281 mOsm/kg (285-295) L 11/13/24: Calcium 9.0 mg/dL (8.5-10.5) 11/13/24 20: Total Bilirubin 0.7 mg/dL (0.15-1.2) 11/13/24 20: AST 13 U/L (0-40) 11/13/24 20: ALT 14 U/L (0-41) 11/13/24 20: Alkaline Phosphatase 94 U/L (40-130) 11/13/24 20: C-Reactive Protein 37.5 mg/L (0.0-4.9) H 11/13/24: Total Protein 7.5 g/dL (6.6-8.7) 11/13/24 20:29 Albumin 4.0 g/dL (3.5-5.2) 11/13/24 20:29 Globulin 3.5 g/dL (1.3-4.6) 11/13/24 20:29 No radiology studies performed this visit Discharge Plan Discharge Patient Disposition: Home Clinical Impression: Diabetic foot ulcer Qualifiers: Diabetic foot ulcer location: unspecified part of foot Diabetes mellitus type: type 2 Laterality: right Non-pressure ulcer stage: with fat layer exposed Q ualified Code(s): E11.621 - Type 2 diabetes mellitus with foot ulcer Acute foot pain Qualifiers: Laterality: unspecified laterality Qualified Code(s): M79.673 - Pain in unspecified foot Condition: Stable Prescriptions: New amoxicillin-pot clavulanate 875-125 mg tablet 1 tab PO Q12H Qty: 20 0RF No Action (DME) Diabetic shoes See Rx Instructions .Route .MEDSUPPLY Qty: 1 0RF Rx Instructions: to HOME (DME) diabetic shoes with 3 inserts See Rx Instructions .Route .MEDSUPPLY Qty: 1 0RF Rx Instructions: As directed to the [employer]oe [place] (DME) Diabetic Shoes See Rx Instructions .Route .MEDSUPPLY Qty: 1 0RF Rx Instructions: As directed glipizide 10 mg tablet 10 mg PO QAM Qty: 90 0RF lisinopril 10 mg tablet 10 mg PO BEDTIME Qty: 90 0RF Rx Instructions: Patient has to have an appointment metformin 500 mg tablet 500 mg PO BID Qty: 60 0RF (DME) Post op shoe See Rx Instructions .Route .MEDSUPPLY Qty: 1 0RF Rx Instructions: As directed to HOME tramadol 50 mg tablet 50 mg PO Q8H PRN (Reason: pain) Qty: 20 0RF doxycycline monohydrate 100 mg capsule See Rx Instructions .ROUTE .COMPLEX Qty: 20 0RF Dose Instruction: take 1 capsule BY MOUTH TWICE DAILY for 10 days Rx Instructions: take 1 capsule BY MOUTH TWICE DAILY for 10 days amoxicillin-pot clavulanate 875-125 mg tablet 1 tab PO Q12H Qty: 14 0RF tramadol 50 mg tablet 50 mg PO Q6H PRN (Reason: pain) Qty: 12 0RF Discharge Orders: Discharge ED (Routine); Ordered 11/13/24 Ordered By: Jamal Barone Referrals: Stephie Morales DO [Primary Care Provider] - 7-10 days Patient Instructions: Foot Ulcers in a Person with Diabetes (ED) Activity Restrictions/Additional Instructions: Please take all your medicine as prescribed. Please continue to follow-up with Dr. Hernández pain the wound clinic as previously recommended. Print Language: Greek Coding Level of Care Code ED Flatbed Driver for Shaun Camacho
[2024-11-13 20:55] LABS: Basophils % 0.5 %; Eosinophils # 0.2 10^3/uL (0.0-0.8); Hematocrit 44.2 % (37-53); Lymphocytes # 1.5 10^3/uL (0.8-4.8); Lymphocytes % 19.9 %; Mean Corpuscular HGB Conc 33.5 g/dL (30-55); Mean Corpuscular Hemoglobin 29.6 pg (27-33); Mean Corpuscular Volume 88.4 fl (82-101); Mean Platelet Volume 11.8 fL (7.4-10.4); Monocytes # 0.8 10^3/uL (0.2-0.9); Monocytes % 10.9 %; Neutrophils % 66.2 %; Nucleated Red Blood Cells % 0 %; Platelet Count 182 10^3/cmm (157-399); Red Cell Distribution Width 13.3 % (12.1-15.1); White Blood Count 7.55 10^3/uL (3.29-11.43)
[2024-11-13 20:58] LABS: Alanine Aminotransferase 14 U/L (0-41); Alkaline Phosphatase 94 U/L (40-130); Aspartate Amino Transferase 13 U/L (0-40); Blood Urea Nitrogen 11 mg/dL (6-20); C Reactive Protein 37.5 mg/L (0.0-4.9); Carbon Dioxide 25 mmol/L (22-29); Chloride 95 mmol/L (98-107); Creatinine Clr Calc Pharmacy 187.6614; Globulin 3.5 g/dL (1.3-4.6); Glomerular Filtration Rate 143.2 mL/min (90-130); Glucose 227 mg/dL (65-115); Osmolality Calculated 281 mOsm/kg (285-295); Sodium 132 mmol/L (136-145); Total Bilirubin 0.7 mg/dL (0.15-1.2); Total Protein 7.5 g/dL (6.6-8.7)
[2024-11-13] MEDS: amoxicillin-clav 875-125 mg Tablet 1 TAB PO (21:18)
== END 2024-11-13 21:25 | disposition home or self-care (01) ==
PROVIDERS: Emergency Medicine; Emergency Provider Emergency Medicine; PCP Family Medicine
DX: E11.621 Type 2 diabetes mellitus with foot ulcer (principal); L97.519 Non-pressure chronic ulcer of other part of right foot with unspecified severity; E78.5 Hyperlipidemia, unspecified; I10 Essential (primary) hypertension; M79.671 Pain in right foot
CPT/HCPCS: 36415; 80053; 85025; 85651; 86140; 99283; J9999

== ENCOUNTER 2024-11-15 12:29 | Outpatient (CLI) | payer OTHER, SELFPAY ==
--- NOTE | 2024-11-15 12:31 | XR_ITS ---
WS: [id number] Exam: XR foot RT min 3V* [id number] Date/Time of Exam: 11/15/2024 12:32 PM Reason For Exam: E11.621 - Type 2 diabetes mellitus with foot ulcer Comparison 08/12/2024. There is surgical absence of the distal fifth metatarsal and also of the base of the proximal fifth phalanx. No obvious sign of acute bone destruction. No fracture. Old nonunion fracture at the base of the fourth metatarsal. Soft tissue swelling of the fifth toe and lateral aspects of the foot. The remaining osseous structures of the RIGHT foot are relatively well-maintained. XR/XR foot RT min 3V* [id number] IMPRESSION: 1. Postoperative changes of the fifth ray which are stable in appearance. No ob vious acute bone destruction noted. Soft tissue swelling of the fifth toe and l ateral aspects of the foot.
== END 2024-11-15 12:30 | disposition home or self-care (01) ==
LOC: RAD 12:30
PROVIDERS: PCP Family Medicine; Visit Provider Thoracic Surgery (Cardiothoracic Vascular Surgery)
DX: E11.621 Type 2 diabetes mellitus with foot ulcer (principal); L97.509 Non-pressure chronic ulcer of other part of unspecified foot with unspecified severity; Z98.890 Other specified postprocedural states; Z87.81 Personal history of (healed) traumatic fracture; R93.6 Abnormal findings on diagnostic imaging of limbs
CPT/HCPCS: 73630

== ENCOUNTER 2024-12-03 12:19 | Outpatient (CLI) | payer OTHER, SELFPAY ==
[2024-12-03 12:47] LABS: Basophils % 0.6 %; Eosinophils # 0.2 10^3/uL (0.0-0.8); Eosinophils % 2.1 %; Lymphocytes # 0.9 10^3/uL (0.8-4.8); Lymphocytes % 13.1 %; Mean Corpuscular Hemoglobin 29.1 pg (27-33); Mean Corpuscular Volume 85.7 fl (82-101); Mean Platelet Volume 11.3 fL (7.4-10.4); Monocytes # 0.5 10^3/uL (0.2-0.9); Monocytes % 6.3 %; Neutrophils # 5.52 10^3/uL (1.8-7.7); Neutrophils % 77.8 %; Nucleated Red Blood Cells % 0 %; Platelet Count 253 10^3/cmm (157-399); Red Blood Count 5.02 10^6/uL (3.85-5.65); Red Cell Distribution Width 13.2 % (12.1-15.1)
[2024-12-03 13:07] LABS: Anion Gap 16.3 (5-19); Blood Urea Nitrogen 13 mg/dL (6-20); Calcium 8.9 mg/dL (8.5-10.5); Carbon Dioxide 25 mmol/L (22-29); Chloride 95 mmol/L (98-107); Glomerular Filtration Rate 119.9 mL/min (90-130); Glucose 261 mg/dL (65-115); Osmolality Calculated 283 mOsm/kg (285-295); Potassium 4.3 mmol/L (3.5-5.1); Sodium 132 mmol/L (136-145)
== END 2024-12-03 12:20 | disposition home or self-care (01) ==
PROVIDERS: PCP Family Medicine
DX: E11.621 Type 2 diabetes mellitus with foot ulcer (principal); L97.512 Non-pressure chronic ulcer of other part of right foot with fat layer exposed
CPT/HCPCS: 36415; 80048; 85025; 87070; 87176; 87205

== ENCOUNTER 2024-12-06 13:21 | Inpatient (IN) | payer OTHER, SELFPAY ==
[2024-12-06] VITALS (11 sets, daily range): BP systolic 105–138; BP diastolic 54–82; PULSE 80–102; RESP 15–18; TEMP 36.7–36.9; O2SAT 94–98; BMI 34.5
--- NOTE | 2024-12-06 14:09 | XR_ITS ---
WS: [id number] Right foot, 3 views, 12/06/2024 Clinical Data: diabetic foot ulcer/infection Comparison: Right foot, 11/15/2024 Findings: There is absence of the distal half of the right fifth metatarsal. There is absence of the base of the right fifth toe proximal phalanx. There is an old fracture of the base of the right fourth metatarsal. The irregularity of the base of the right fifth metatarsal remains the same with periosteal new bone formation and cystic change. There is soft tissue swelling laterally overlying the right fifth metatarsal. The remainder of the right foot shows no change. XR/XR foot RT min 3V* [id number] Impression: 1. Stable postoperative changes of right fifth metatarsal. 2. Soft tissue swelling over the lateral aspect of right foot at the level of t he right fifth toe and fifth metatarsal.
--- NOTE | 2024-12-06 14:10 | W.ED.EXTPRO ---
HPI - Extremity Problem General: Chief complaint: Extremity Injury, Lower Stated complaint: right foot problems Time Seen by Provider: 12/06/24 13:50 Source: patient Mode of arrival: wheelchair Limitations: no limitations History of Present Illness: Patient is a 49-year-old male with a history of diabetes here for an infected diabetic foot ulcer. Patient states that ulcer is chronic. He has seen Dr. Hernández for this previously and is now receiving services through [facility] wound care. Recently had culture performed showing Enterobacter cloacae. He was placed on Levaquin following sensitivity report. Patient states over the past 24 hours or so he has began developing redness and warmth to the anterior aspect of his left lower leg. He denies fevers. He does arrive slightly tachycardic. He was reportedly seen by his primary care provider and referred to the emergency department. Patient states his last A1c was over 11. MD Complaint: extremity pain and extremity swelling Onset (ago): day(s) Pain Consistency: constant Location: right and lower extremity Radiation: none Relieving factors: nothing Exacerbating factors: nothing Associated symptoms: Deny chest pain or fever(s) Related Data Home Medications ?Medication ?Instructions ?Recorded ?Confirmed amoxicillin 875 mg-potassium 1 tab PO Q12H 12/06/24 12/06/24 clavulanate 125 mg tablet Previous Rx's ?Medication ?Instructions ?Recorded lisinopril 10 mg tablet 10 mg PO BEDTIME 10/08/24 hypertension/kidney #90 tabs glipizide 10 mg tablet 10 mg PO QAM diabetes #30 tabs 12/03/24 metformin 500 mg tablet 500 mg PO BID diabetes #60 tabs 12/03/24 levofloxacin 750 mg tablet 750 mg PO DAILY #7 tabs 12/05/24 Allergies Allergy/AdvReac Type Severity Reaction Status Date / Time No Known Allergies Allergy Verified 12/06/24 12:45 Review of Systems Const: Denies: fever(s), chills, body aches, fatigue or malaise Card: Denies: chest pain Resp: Denies: dyspnea GI: Denies: nausea or vomiting Musc: Reports: extremity swelling; Denies: joint swelling or joint redness Skin/Breast: Reports: other (erythema/warmth R LE) Neuro: Reports: other (chronic neuropathy); Denies: headache(s) PFS ED PFSH: Medical History Acute foot pain Recurrent umbilical hernia Adult BMI 34.0-34.9 kg/sq m Onychomycosis Bronchitis Dyslipidemia associated with type 2 diabetes mellitus Uncontrolled diabetes mellitus Type 2 diabetes mellitus Diabetic foot ulcer Hypertension Surgical History History of hernia repair Umbilical hernia repair ~ 2019 Family History Other CAD (coronary artery disease) Social History Smoking and tobacco/nicotine status: never used tobacco/nicotine Alcohol intake: never Physical Exam Const: COMMON NORMALS: no acute distress, average body habitus, patient oriented x3, no limitations, healthy appearing, alert and well nourished Resp: COMMON NORMALS: normal respiratory effort and clear to auscultation bilaterally AUSCULTATION: clear to auscultation bilaterally Cardio: COMMON NORMALS: regular rhythm RATE: tachycardic (mild) RHYTHM: regular rhythm Extremity: COMMON NORMALS: full ROM, capillary refill normal and no calf tenderness NARRATIVE EXTREMITY EXAM: RIGHT LOWER EXTREMITY: Yes lower leg (cellulitis affecting the anterior aspect of R LE) and Yes foot & digits (chronic ulcer to lateral plantar R foot with more acute formation laterally) Right foot and digits: Yes inspection (significant surrounding erythema/warmth to ulcer/abscess formation) Neuro: COMMON NORMALS: patient oriented x3 SENSORIUM/ORIENTATION: Yes alert Skin: NARRATIVE SKIN EXAM: see above Course Consultations: Consultation #1: Dr. Hernández-will consult on patient this afternoon Consultation #2: Dr. Nava-accepts hospitalization; requesting MRI of foot Vital Signs: Vital signs: Vital Signs Temperature 98.5 F 12/06/24 13:26 Pulse Rate 102 H 12/06/24 13:26 Respiratory Rate 15 12/06/24 13:26 Blood Pressure 121/79 12/06/24 13:26 Pulse Oximetry 98 12/06/24 13:26 Oxygen Delivery Me thod Room Air 12/06/24 13:26 MDM - Extremity (Nontraumatic) Medical Decision Making Patient is a very nice 49-year-old uncontrolled diabetic here for worsening infection involving his the right foot. He has a chronic plantar foot ulcer that he has been receiving services through wound care for. Recently he has began developing an adjacent fluid collection concerning for abscess. He now has significant cellulitis affecting the anterior aspect of his right lower leg. Patient was sent to the emergency department by primary care. I did discuss with Dr. Hernández who is well aware of patient and is willing to consult on him and agrees with plan for IV antibiotics and admission. I spoke to hospitalist, Dr. Nava, who will admit patient. He is requesting MRI imaging. Contacted MRI and they will complete this tomorrow. Lab Data 12/06/24 14:19 12/06/24 14:19 Radiology Impressions Foot X-Ray 12/06/24 14:09 Impression: 1. Stable postoperative changes of right fifth metatarsal. 2. Soft tissue swelling over the lateral aspect of right foot at the level of the right fifth toe and fifth metatarsal. Laboratory Results WBC 6.84 10^3/uL (3.29-11.43) 12/06/24 14:19 RBC 4.71 10^6/uL (3.85-5.65) 12/06/24 14:19 Hgb 13.60 g/dL (11.27-16.99) 12/06/24 14:19 Hct 40.7 % (37-53) 12/06/24 14:19 MCV 86.4 fl (82-101) 12/06/24 14:19 MCH 28.9 pg (27-33) 12/06/24 14:19 MCHC 33.4 g/dL (30-55) 12/06/24 14:19 RDW 13.0 % (12.1-15.1) 12/06/24 14:19 Plt Count 244 10^3/cmm (157-399) 12/06/24 14:19 MPV 11.1 fL (7.4-10.4) H 12/06/24 14:19 Neut % (Auto) 55.6 % 12/06/24 14:19 Lymph % (Auto) 29.8 % 12/06/24 14:19 Republic % (Auto) 11.3 % 12/06/24 14:19 Eos % (Auto) 2.6 % 12/06/24 14:19 Baso % (Auto) 0.4 % 12/06/24 14:19 Neut # (Auto) 3.80 10^3/uL (1.8-7.7) 12/06/24 14:19 Lymph # (Auto) 2.0 10^3/uL (0.8-4.8) 12/06/24 14:19 Republic # (Auto) 0.8 10^3/uL (0.2-0.9) 12/06/24 14:19 Eos # (Auto) 0.2 10^3/uL (0.0-0.8) 12/06/24 14:19 Baso # (Auto) 0.0 10^3/uL (0.0-0.1) 12/06/24 14:19 Nucleated RBC % (auto) 0 % 12/06/24 14:19 Nucleated RBCs # 0.0 /100WBC 12/06/24 14:19 All radiology interpretation(s) finalized by discharge Discharge Plan Discharge Patient Disposition: Admitted As Inpatient Clinical Impression: Uncontrolled diabetes mellitus, Cellulitis of right anterior lower leg, Abscess of right foot Condition: Stable Coding Level of Care Code ED Anode Builder for Shaun Camacho
[2024-12-06] MEDS: piperacillin-tazobactam 3.375 GM in sodium chloride 0.9% (plus) 50 ML IV ×2 (14:27→23:17)
[2024-12-06] MEDS: vancomycin 1,250 MG/250 ML PIGGYBACK 166.67 MG IV (14:31)
[2024-12-06 14:32] LABS: Basophils % 0.4 %; Eosinophils # 0.2 10^3/uL (0.0-0.8); Eosinophils % 2.6 %; Hematocrit 40.7 % (37-53); Lymphocytes % 29.8 %; Mean Corpuscular HGB Conc 33.4 g/dL (30-55); Mean Corpuscular Hemoglobin 28.9 pg (27-33); Mean Corpuscular Volume 86.4 fl (82-101); Mean Platelet Volume 11.1 fL (7.4-10.4); Monocytes # 0.8 10^3/uL (0.2-0.9); Monocytes % 11.3 %; Neutrophils % 55.6 %; Nucleated Red Blood Cells % 0 %; Platelet Count 244 10^3/cmm (157-399); Red Blood Count 4.71 10^6/uL (3.85-5.65); White Blood Count 6.84 10^3/uL (3.29-11.43)
[2024-12-06 14:50] LABS: Erythrocyte Sedimentation Rate 16 mm/hr (0-10); Lactic Sepsis W/Reflex 1.6 mmol/L (0.5-2.2)
[2024-12-06 14:55] LABS: Alanine Aminotransferase 11 U/L (0-41); Albumin Level 3.7 g/dL (3.5-5.2); Alkaline Phosphatase 96 U/L (40-130); Anion Gap 15.6 (5-19); Aspartate Amino Transferase 12 U/L (0-40); Blood Urea Nitrogen 17 mg/dL (6-20); C Reactive Protein 108.2 mg/L (0.0-4.9); Calcium 8.8 mg/dL (8.5-10.5); Carbon Dioxide 26 mmol/L (22-29); Chloride 96 mmol/L (98-107); Creatinine Clr Calc Pharmacy 162.8185; Globulin 3.9 g/dL (1.3-4.6); Glomerular Filtration Rate 119.9 mL/min (90-130); Glucose 256 mg/dL (65-115); Osmolality Calculated 286 mOsm/kg (285-295); Potassium 4.6 mmol/L (3.5-5.1); Sodium 133 mmol/L (136-145); Total Bilirubin 0.6 mg/dL (0.15-1.2); Total Protein 7.6 g/dL (6.6-8.7)
--- NOTE | 2024-12-06 14:57 | PC.NURSE ---
Husam and dany applied to foot prior to transfer from to a room.
--- NOTE | 2024-12-06 16:18 | PM.HP ---
Providers/Chief Complaint Primary Care Provider: Stephie Morales DO Chief Complaint: right foot problems History of Present Illness Asif Guerra is a 49 year old male with past medical history of uncontrolled type 2 diabetes mellitus, hypertension, chronic right foot diabetic foot ulcer for which he follows up with Dr. Turcios and wound care. Had an abscess drained in September 2024. Patient states he has been on various antibiotics for more than 5 to 6 months. Doing antibiotics include clindamycin, Levaquin, Bactrim, Augmentin, doxycycline. On Monday he ran out of his antibiotics and was having more pain in the foot so he called wound care asking for renewal of his antibiotic prescription when he was asked to visit the clinic. On going to the clinic his wound was looking worse so deep wound cultures were taken which have in fact grown Enterobacter. Today in the morning when he took his boot off to change the wound dressing he noticed increased swelling, redness and discharge from the wound so he presented to the ER. Review of Systems General: Reports: 10 or more systems reviewed and unremarkable except in HPI and below Const: Denies: fever(s), chills, body aches, change in appetite, change in weight, malaise, night sweats, diaphoresis, change in sleep pattern, daytime sleepiness or snoring Eyes: Denies: change in vision, blurry vision, photophobia, eye discomfort or eye discharge ENMT: Denies: throat pain, enlarged tonsils, hoarseness, mouth pain, oral sores, dry mouth, tinnitus, nasal congestion or post nasal drip Card: Denies: chest pain, palpitations, irregular heart rhythm, edema, swelling of feet/ankles, lightheadedness, syncope, pre-syncope, dyspnea on exertion, orthopnea, leg pain with exertion or acrocyanosis Resp: Denies: dyspnea, productive cough, non-productive cough, wheezing, stridor, pain on inspiration, change in phlegm color, hemoptysis or chest congestion GI: Denies: abdominal pain, nausea, vomiting, hematemesis, coffee ground emesis, dysphagia, heartburn, diarrhea, constipation, bloating, GI cramping, change in bowel habits, pain on defecation, hematochezia or melena : Denies: flank pain, difficulty urinating, dysuria, urinary frequency, urinary urgency, urinary hesitancy, urinary dribbling, difficulty starting urination, change in urine stream, nocturia or hematuria Musc: Denies: neck pain, back pain, extremity pain, joint pain, joint swelling, joint redness, joint stiffness or limited range of motion Skin/Breast: Reports: other (erythema/warmth R LE) Neuro: Denies: headache(s), numbness in extremities, weakness in extremities, sensory changes, lack of coordination, difficulty walking, frequent falls, dizziness, vertigo, confusion, Slurred speech present, difficulty communicating thoughts or seizure-like activity Psych: Denies: anxiety, depression, mood swings, panic attacks, hopelessness or irritability Endo: Denies: polyuria, polydipsia, tired all the time, cold intolerance, excessive sweating, flushing or heat intolerance Amaury/Lymph: Denies: easy bruising or easy bleeding All/Imm: Denies: tongue swelling, facial swelling or acute wheezing Medications/Allergies Home Medications ?Medication ?Instructions ?Recorded ?Confirmed ?Last Taken ?Type lisinopril 10 mg tablet 10 mg PO BEDTIME 10/08/24 12/06/24 12/05/24 Rx hypertension/kidney #90 tabs glipizide 10 mg tablet 10 mg PO QAM diabetes #30 tabs 12/03/24 12/06/24 12/06/24 Rx metformin 500 mg tablet 500 mg PO BID diabetes #60 tabs 12/03/24 12/06/24 12/06/24 Rx levofloxacin 750 mg tablet 750 mg PO DAILY #7 tabs 12/05/24 12/06/24 12/06/24 Rx amoxicillin 875 mg-potassium 1 tab PO Q12H 12/06/24 12/06/24 12/06/24 History clavulanate 125 mg tablet Allergies Allergy/AdvReac Type Severity Reaction Status Date / Time No Known Allergies Allergy Verified 12/06/24 12:45 PFSH Acute PFSH: Medical History (Updated 12/06/24 @ 16:36 by Armani Ramires MD) Osteomyelitis Abscess of right foot Acute foot pain Recurrent umbilical hernia Adult BMI 34.0-34.9 kg/sq m Onychomycosis Bronchitis Dyslipidemia associated with type 2 diabetes mellitus Uncontrolled diabetes mellitus Type 2 diabetes mellitus Diabetic foot ulcer Hypertension Surgical History History of hernia repair Umbilical hernia repair ~ 2019 Family History Other CAD (coronary artery disease) Social History Smoking and tobacco/nicotine status: never used tobacco/nicotine Alcohol intake: never Vitals/I&O/Wt Last Vital Signs Temp 98.5 F 12/06/24 13:26 Pulse 102 H 12/06/24 13:26 Resp 15 12/06/24 13:26 BP 121/79 12/06/24 13:26 Pulse Ox 98 12/06/24 13:26 O2 Del Method Room Air 12/06/24 13:26 12/06/24 12/06/24 12/06/24 06:59 14:59 22:59 Intake Total 50 / 50 Balance 50 / 50 Weight last 48 hrs Weight 112.491 kg Physical Exam Narrative: General: No acute distress, AO x3 HEENT: PERRLA, pupils bilaterally equal and reactive Chest: Normal vesicular breath sounds, no added sounds, equal good air entry bilaterally CVS: S1-S2 regular, no murmurs, no tachycardia, no gallops, no rubs Abdomen: Soft, nontender, no organomegaly, bowel sounds present Neuro: No focal deficits, no facial deformity, AO x3, power 5/5 in all limbs Extremity: NARRATIVE EXTREMITY EXAM: Data 12/06/24 14:19 12/06/24 14:19 Micro: Microbiology 12/06/24 14:24 Blood Culture - Preliminary Blood SPECIMEN COLLECTED A&P Assessment and plan (1) Diabetic foot ulcer: Chronic wound with worsening recently. Has been on multiple antibiotics for the last [address] Hernández has been consulted from the ER. Appreciate ESR and CRP. Both elevated. Appreciate various wound cultures from the same wound growing Enterobacter, Enterococcus, Klebsiella, E. coli, Staph aureus. With plan for MRI foot with and without contrast to rule out osteomyelitis versus abscess. Check MRSA swab, procalcitonin, blood cultures. For now empirically started on IV vancomycin and Zosyn. Continue wound care as per wound care orders as an outpatient. Lower limb duplex negative for DVT. Will check arterial duplex to rule out PVD. Qualifiers: Diabetes mellitus type: type 2 Diabetic foot ulcer location: unspecified part of foot Laterality: right Non-pressure ulcer stage: with fat layer exposed Qualified Code(s): E11.621 - Type 2 diabetes mellitus with foot ulcer; L97.512 - Non-pressure chronic ulcer of other part of right foot with fat layer exposed (2) Cellulitis of right anterior lower leg: (3) Uncontrolled diabetes mellitus: Last A1c of 11. Patient is glipizide and metformin at home. Agreed to switch to insulin on discharge. Recheck A1c. Insulin sliding scale at moderate dose protocol for now. Qualifiers: Diabetes mellitus type: type 2 Glycemic state: with hyperglycemia Qualified Code(s): E11.65 - Type 2 diabetes mellitus with hyperglycemia (4) Hypertension: Goal blood pressure less than 140/90 mmHg. Continue with home dose of lisinopril for now. Qualifiers: Hypertension type: secondary to endocrine disorders Qualified Code(s): I15.2 - Hypertension secondary to endocrine disorders (5) Dyslipidemia associated with type 2 diabetes mellitus: Plan Full code Carb consistent cardiac diet Protonix for PUD prophylaxis Heparin 5000 every 12 hourly for DVT prophylaxis. PDMP PDMP Reviewed: Not Reviewed Attestations Medical Necessity Statement*: Admission for more than 2 midnights for management of diabetic foot ulcer with cellulitis, uncontrolled type 2 diabetes mellitus. Diagnoses Diabetic ulcer of right foot associated with type 2 diabetes mellitus, with fat layer exposed, unspecified part of foot E11.621; L97.512 Diabetes mellitus type: type 2 Diabetic foot ulcer location: unspecified part of foot Laterality: right Non-pressure ulcer stage: with fat layer exposed Cellulitis of right anterior lower leg L03.115 Uncontrolled type 2 diabetes mellitus with hyperglycemia E11.65 Diabetes mellitus type: type 2 Glycemic state: with hyperglycemia Hypertension due to endocrine disorder I15.2 Hypertension type: secondary to endocrine disorders Dyslipidemia associated with type 2 diabetes mellitus E11.69; E78.5
--- NOTE | 2024-12-06 16:23 | USR_ITS ---
PROCEDURE INFORMATION: Exam: US Duplex Bilateral Lower Extremity Arteries Exam date and time: 12/06/2024 5:25 PM Age: 49 years old Clinical indication: Other: Concern for pvd, chronic foot ulcer TECHNIQUE: Imaging protocol: Real-time ultrasound scan of the arteries of the bilateral lower extremities with 2-D parker scale, color Doppler flow and spectral waveform analysis. Images documented and saved. COMPARISON: CT foot RT w con [id number] 07/28/2022 6:41 PM FINDINGS: Right common femoral artery: No occlusion or significant stenosis. Normal waveform. Right superficial femoral artery: No occlusion or significant stenosis. Normal waveform. Right popliteal artery: No occlusion or significant stenosis. Normal waveform. Right calf/foot arteries: No occlusion or significant stenosis in the visualized arteries. Normal waveforms. Dorsalis pedis artery is patent. SAMEER on the right is 1.3. Left common femoral artery: No occlusion or significant stenosis. Normal waveform. Left superficial femoral artery: No occlusion or significant stenosis. Normal waveform. Left popliteal artery: No occlusion or significant stenosis. Normal waveform. Left calf/foot arteries: No occlusion or significant stenosis in the visualized arteries. Normal waveforms. Dorsalis pedis artery is patent. SAMEER in the left is 1.2. US/[place] [id number] IMPRESSION: No stenosis or occlusion.
[2024-12-06 16:56] LABS: Procalcitonin 0.08 ng/mL (0-0.5)
--- NOTE | 2024-12-06 19:53 | PHA.VACGOAL ---
Vancomycin Goal - Goal Vancomycin Goal:: 10-15 mg/L Vancomycin Indication:: SSTI - Therapy Current therapy:: Pip/Tazo Day of therpy:: Day []of [] . Actual body weight (kg): 248 lb - Data Labs: WBC 6.84 10^3/uL (3.29-11.43) 12/06/24 14:19 RBC 4.71 10^6/uL (3.85-5.65) 12/06/24 14:19 Hgb 13.60 g/dL (11.27-16.99) 12/06/24 14:19 Hct 40.7 % (37-53) 12/06/24 14:19 MCV 86.4 fl (82-101) 12/06/24 14:19 MCH 28.9 pg (27-33) 12/06/24 14:19 MCHC 33.4 g/dL (30-55) 12/06/24 14:19 RDW 13.0 % (12.1-15.1) 12/06/24 14:19 Sodium 133 mmol/L (136-145) L 12/06/24 14:19 Potassium 4.6 mmol/L (3.5-5.1) 12/06/24 14:19 Chloride 96 mmol/L (98-107) L 12/06/24 14:19 Carbon Dioxide 26 mmol/L (22-29) 12/06/24 14:19 Anion Gap 15.6 (5-19) 12/06/24 14:19 BUN 17 mg/dL (6-20) 12/06/24 14:19 Creatinine 0.7 mg/dL (0.7-1.2) 12/06/24 14:19 GFR Calculation 119.9 mL/min (90-130) 12/06/24 14:19 Last dialysis session:: N/A Treatment plan:: new consult Regimen:: 1250 MG DOSE X 1 GIVEN IN ER. STARTING MAINTENANCE DOSE OF 1500 MG Q8H PER DOSING PROTOCOL. Follow up:: WILL CONTINUE TO MONITOR AND FOLLOW UP DAILY.
[2024-12-06 20:34] LABS: Iron 39 ug/dL (59-158); Percent Saturation 17.2 % (20-50); Thyroid Stimulating Hormone 0.73 uIU/mL (0.27-4.20); Total Iron Binding Capacity 226 mcg/dl; Unsaturated Iron Binding 187 ug/dL (112-347); Vitamin B12 436 pg/mL (232-1245)
[2024-12-06] MEDS: famotidine 20 mg Tablet PO (20:37)
[2024-12-06] MEDS: atorvastatin 40 mg Tablet 20 MG PO (20:37)
[2024-12-06] MEDS: lisinopril 10 mg Tablet PO (20:37)
[2024-12-06] MEDS: heparin 5,000 unit/mL INJ 1 mL 5000 UNIT SUBCUT (20:37)
[2024-12-06] MEDS: docusate sodium 100 mg Capsule PO (20:37)
--- NOTE | 2024-12-06 20:41 | PM.CONSULT ---
Providers/Reason For Consult Consulting Physician/Specialty*: Javier Medellin.P.M./podiatry Reason for Consult*: Right foot infection Attending Physician: Armani Ramires MD Primary Care Provider: Stephie Morales DO History of Present Illness History of Present Illness Asif Guerra is a 49 year old male, history of uncontrolled type 2 diabetes, chronic nonhealing diabetic foot ulcer greater than 1 year. Patient is well-known to podiatry service. Has been treated weekly at wound care in recent months for right foot ulceration. Patient has a history of noncompliance with wound care and weightbearing status. Multiple conversations have been had with patient in regards to wound healing, weightbearing status and blood sugars. Patient noticed worsening right foot infection over the course of the past few days. Patient saw primary care provider earlier today and was directed to the emergency department. Patient noted increased drainage to right foot wound with erythema extending proximally on right leg. Review of Systems General: Reports: 10 or more systems reviewed and unremarkable except in HPI and below Const: Denies: fever(s), chills, body aches or change in appetite Eyes: Denies: change in vision or blurry vision Card: Denies: chest pain, palpitations or irregular heart rhythm Resp: Denies: dyspnea GI: Denies: abdominal pain, nausea, vomiting or diarrhea Musc: Reports: joint stiffness Skin/Breast: Reports: non-healing lesions and lesions Neuro: Reports: numbness in extremities Medications/Allergies Home Medications ?Medication ?Instructions ?Recorded ?Confirmed ?Last Taken ?Type lisinopril 10 mg tablet 10 mg PO BEDTIME 10/08/24 12/06/24 12/05/24 Rx hypertension/kidney #90 tabs glipizide 10 mg tablet 10 mg PO QAM diabetes #30 tabs 12/03/24 12/06/24 12/06/24 Rx metformin 500 mg tablet 500 mg PO BID diabetes #60 tabs 12/03/24 12/06/24 12/06/24 Rx levofloxacin 750 mg tablet 750 mg PO DAILY #7 tabs 12/05/24 12/06/24 12/06/24 Rx amoxicillin 875 mg-potassium 1 tab PO Q12H 12/06/24 12/06/24 12/06/24 History clavulanate 125 mg tablet Allergies Allergy/AdvReac Type Severity Reaction Status Date / Time No Known Allergies Allergy Verified 12/06/24 12:45 PFSH Acute PFSH: Medical History (Updated 12/06/24 @ 20:48 by Kodak Hernández DPM) Osteomyelitis Abscess of right foot Acute foot pain Recurrent umbilical hernia Adult BMI 34.0-34.9 kg/sq m Onychomycosis Bronchitis Dyslipidemia associated with type 2 diabetes mellitus Uncontrolled diabetes mellitus Type 2 diabetes mellitus Diabetic foot ulcer Hypertension Surgical History History of hernia repair Umbilical hernia repair ~ 2019 Family History Other CAD (coronary artery disease) Social History Smoking and tobacco/nicotine status: never used tobacco/nicotine Alcohol intake: never Vitals/I&O/Wt Last Vital Signs Temp 98.5 F 12/06/24 13:26 Pulse 90 12/06/24 19:50 Resp 16 12/06/24 19:50 BP 138/71 12/06/24 19:50 Pulse Ox 97 12/06/24 20:13 O2 Del Method Room Air 12/06/24 20:13 12/06/24 12/06/24 12/06/24 06:59 14:59 22:59 Intake Total 50 / 50 Balance 50 / 50 Weight last 48 hrs Weight 248 lb Weight 248 lb Physical Exam Narrative: GENERAL: A&O x 3 VASCULAR: DP/PT pulses palpable 2/4 with CFT intact, <3seconds to distal digits DERMATOLOGICAL: Right foot: Ulceration under the right 5th metatarsal measuring 4.0 x 5.0 x 1.4 cm, with undermining 0.3 cm from 6 o'clock to 9 o'clock position. Hyperkeratotic borders, granular wound bed. Positive probe to bone. Active serous drainage MUSCULOSKELETAL: 5/5 muscle strength in all 4 quadrants of the lower extremity when tested against resistance. Cavovarus foot type. Mild tenderness with palpation of periincisional area right foot tenderness with calf squeeze of right lower extremity NEUROLOGICAL: Neurological sensation to the affected foot and ankle is diminished through L4-S1 dermatomes via 10g SWMF, diminished sensation extends proximally to the level of the ankle bilaterally. Data 12/06/24 14:19 12/06/24 14:19 Micro: Microbiology 12/06/24 14:24 Blood Culture - Preliminary Blood SPECIMEN COLLECTED A&P Assessment and plan (1) Ulcer of right foot with fat layer exposed: (2) Cellulitis of right anterior lower leg: (3) Uncontrolled diabetes mellitus: Qualifiers: Diabetes mellitus type: type 2 Glycemic state: with hyperglycemia Qualified Code(s): E11.65 - Type 2 diabetes mellitus with hyperglycemia Plan - Right foot full-thickness ulceration with associated cellulitis, concern for abscess -Labs and vitals reviewed -WBC 6.8 -ESR 16 -CRP 108.2 -HR 102 -RR 15 -Tmax 98.5 -Cultures recent wound care culture show Enterobacter -Abx Vanco/Zosyn -Diet: Okay for diet -No plan for emergent surgical intervention at this time. Awaiting MRI to determine extent of debridement. Possible bedside debridement tomorrow 12/07/24 pending MRI findings. Positive probe to bone clinically. Discussed with patient correlation between clinically probe to bone and osteomyelitis. Discussed that he will need PICC line with long-term IV antibiotics unless he undergoes bone resection of fifth metatarsal. MRI will help guide treatment plan. -Pain Mgmt: Per primary team -Weight bearing: Weightbearing to heel for transfers only -Dressings: Dry sterile dressing -Continue current Abx therapy until ID and Sensitivity results -Trend labs -Discharge plan: To be determined -Podiatry will continue to round on patient daily and provide recommendations PDMP PDMP Reviewed: Not Reviewed Coding Level of Care Code Acute Code for Chg Fwd Diagnoses Ulcer of right foot with fat layer exposed L97.512 Cellulitis of right anterior lower leg L03.115 Uncontrolled type 2 diabetes mellitus with hyperglycemia E11.65 Diabetes mellitus type: type 2 Glycemic state: with hyperglycemia
[2024-12-06 21:21] LABS: Glucose Point of Care 211 mg/dL (70-110)
[2024-12-06] MEDS: insulin lispro 100 unit/1 mL SUBCUT (21:42)
[2024-12-06] MEDS: vancomycin 1,500 MG/300 ML PIGGYBACK 200 MG IV (21:44)
[2024-12-06 22:46] LABS: Estmated Average Glucose 263; Hemoglobin A1C 10.8 % (4.0-6.0)
[2024-12-06 23:10] LABS: MRSA PCR OZH (swab) NOT DETECTED (Negative)
[2024-12-07] VITALS (9 sets, daily range): BP systolic 94–115; BP diastolic 58–72; PULSE 58–81; RESP 16–18; TEMP 36.6–36.8; O2SAT 95–98
[2024-12-07 05:29] LABS: Basophils % 0.4 %; Eosinophils # 0.3 10^3/uL (0.0-0.8); Eosinophils % 3.7 %; Hematocrit 38.5 % (37-53); Lymphocytes # 2.2 10^3/uL (0.8-4.8); Lymphocytes % 32.1 %; Mean Corpuscular Hemoglobin 29.1 pg (27-33); Mean Corpuscular Volume 88.3 fl (82-101); Mean Platelet Volume 11.9 fL (7.4-10.4); Monocytes # 0.7 10^3/uL (0.2-0.9); Monocytes % 10.7 %; Neutrophils # 3.52 10^3/uL (1.8-7.7); Neutrophils % 52.7 %; Nucleated Red Blood Cells % 0 %; Platelet Count 225 10^3/cmm (157-399); Red Blood Count 4.36 10^6/uL (3.85-5.65)
[2024-12-07] MEDS: vancomycin 1,500 MG/300 ML PIGGYBACK 200 MG IV ×2 (05:44→13:50)
[2024-12-07 06:03] LABS: Procalcitonin 0.07 ng/mL (0-0.5)
[2024-12-07 06:04] LABS: Alanine Aminotransferase 9 U/L (0-41); Albumin Level 3.4 g/dL (3.5-5.2); Alkaline Phosphatase 97 U/L (40-130); Anion Gap 13.3 (5-19); Aspartate Amino Transferase 15 U/L (0-40); Blood Urea Nitrogen 12 mg/dL (6-20); Calcium 8.8 mg/dL (8.5-10.5); Carbon Dioxide 26 mmol/L (22-29); Chloride 101 mmol/L (98-107); Chol HDL Ratio 4.33 mg/dL (1.0-5.00); Cholesterol 130 mg/dL (0-200); Creatinine Clr Calc Pharmacy 162.8185; Globulin 3.6 g/dL (1.3-4.6); Glomerular Filtration Rate 119.9 mL/min (90-130); Glucose 226 mg/dL (65-115); HDL Cholesterol 30 mg/dL (60-100); LDL Cholesterol Calculated 73 mg/dL (50-129); LDL HDL Ratio 2.43 RATIO (0.00-3.22); Magnesium 1.8 mg/dL (1.7-2.3); Osmolality Calculated 289 mOsm/kg (285-295); Phosphorus 3.2 mg/dL (2.5-4.5); Potassium 4.3 mmol/L (3.5-5.1); Sodium 136 mmol/L (136-145); Total Bilirubin 0.6 mg/dL (0.15-1.2); Triglycerides 133 mg/dL (0-150)
[2024-12-07 06:38] LABS: Folate Level 14.5 ng/mL (4.5-32.2)
[2024-12-07 06:39] LABS: Glucose Point of Care 210 mg/dL (70-110)
[2024-12-07] MEDS: piperacillin-tazobactam 3.375 GM in sodium chloride 0.9% (plus) 50 ML IV ×3 (07:28→23:53)
[2024-12-07] MEDS: docusate sodium 100 mg Capsule PO ×2 (08:06→17:34)
[2024-12-07] MEDS: aspirin 81 mg EC Tablet PO (08:06)
[2024-12-07] MEDS: famotidine 20 mg Tablet PO ×2 (08:06→17:34)
[2024-12-07] MEDS: insulin lispro 100 unit/1 mL SUBCUT ×4 (08:06→21:47)
[2024-12-07] MEDS: heparin 5,000 unit/mL INJ 1 mL 5000 UNIT SUBCUT ×2 (08:07→20:25)
--- NOTE | 2024-12-07 11:00 | MRR_ITS ---
PROCEDURE INFORMATION: Exam: MR Right Lower Extremity Other Than Joint Without and With Contrast; Foot Exam date and time: 12/07/2024 11:19 AM Age: 49 years old Clinical indication: Pain; Edema; Yes, it is localized; Right; Prior surgery; Surgery date: 3-7 days post-operative; Surgery type: Several debridements of ulcer on lateral side of left foot; Additional info: Infection/diabetic foot ulcer TECHNIQUE: Imaging protocol: Magnetic resonance imaging of the right lower extremity without and with contrast. Exam focused on the foot. Contrast material: MULTIHANCE; Contrast volume: 20 ml; Contrast route: INTRAVENOUS (IV); COMPARISON: MR foot RT wo/w con [id number] 03/09/2023 3:09 PM FINDINGS: Bones/joints: Contiguous decreased T1 marrow signal in the 5th intermediate phalanx base as well as the distal head of the 5th metatarsal with previous amputation in the mid diaphyseal region. Mild reactive osteitis in the remainder of 5th metatarsal. Moderate- severe degenerative change in the forefoot, most prominently of the 4/5 tarsometatarsal joints. Remote, healed fracture at the proximal metaphysis of the 4th metatarsal. Contour deformity of the proximal metaphysis of the 5th metatarsal suggestive of remote, healed fracture. LIGAMENTS: Lisfranc ligament: Unremarkable. No evidence of tear. TENDONS: Flexor tendons of foot: Unremarkable. No evidence of tear. Tibialis posterior tendon: Unremarkable as visualized. Peroneal tendons: Chronic appearing split tear of the peroneus brevis with moderate tendinosis. Extensor tendons of foot: Unremarkable. No evidence of tear. Tibialis anterior tendon: Unremarkable as visualized. Tarsal canal (Sinus tarsi): Unremarkable. Tarsal tunnel: Unremarkable. Soft tissues: Small soft tissue ulcer with moderate edema/debris in the lateral forefoot, contiguous with a plantar ulcer. Few nonenhancing tiny pockets of fluid suspicious for tiny abscesses, with adjacent moderate phlegmonous change in the lateral forefoot. Moderate dorsal forefoot subcutaneous and soft tissue inflammatory change. Correlate for cellulitis. Plantar fascia: Unremarkable as visualized. MR/MR foot RT wo/w con [id number] IMPRESSION: 1. Osteomyelitis of the 5th metatarsal at the amputated mid diaphyseal tip. 2. Mid lateral forefoot small ulcer, with trace abscesses in the plantar and lateral forefoot. 3. Moderate dorsal forefoot subcutaneous and soft tissue inflammatory change. Correlate for cellulitis.
[2024-12-07 11:03] LABS: Glucose Point of Care 211 mg/dL (70-110)
[2024-12-07] MEDS: gadobenate dimeglumine 20 mL vial IV (11:49)
--- NOTE | 2024-12-07 11:49 | PC.CHAP ---
Pastoral Care Encounter/Spiritual Assessment Type of Contact [] Declined roustabout crew leader visit [] Patient/Family/Request visit [] Outpatient visit [] Follow-up visit [] Physician referral [] Code/Alert [X] Routine visit [] Staff referral [] Actively dying [] Patient sleeping [] Family support [] [X] Out of room [] Palliative care [] [] Receiving care in room [] Pre-surgical visit [] Trauma [] Long length of stay [] ICU visit [] Other: Relational/Emotional Strength [] Patient feels connected with others/family/visitors/staff [] Distress [] Loneliness/isolation [] Abandonment Spirituality of Patient [] Person of Danna [] Attends Yarsanism of their Danna [] Believes in Prayer [] Reads Bible or Christian materials [] There are Spiritual issues to be addressed Business Administrator Interventions [] Prayer [] Active listening [] Non-anxious presence [] Spiritual/emotional support [] Crisis/trauma care [] Spiritual counseling [] Bereavement support [] Provided bereavement packet [] Provided Bible/devotional materials [] Provided toy/stuffed animal, coloring book to patient or family member [] Provided Communion [] Anointing/[place] [] Salvation [] Completed spiritual assessment [] Other: Impact on Illness or Injury [] Angry [] Fearful [] Anxious [] Often cries [] Exhaustion [] Unable to work [] Unable to attend latter-day [] Unable to walk/stand [] Unable to read [] Unable to drive [] Unable to eat/drink [] Unable to sleep [] Unable to be with family [] Patient intubated [] Other: Summary asked for Prayer Time spent with patient
--- NOTE | 2024-12-07 12:53 | P.PN_ITS ---
Subjective 2 Subjective: Patient seen at bedside this morning. Received MRI this morning. Vitals/I&O/Wt Last Vital Signs Temp 98.1 F 12/07/24 12:21 Pulse 68 12/07/24 12:21 Resp 16 12/07/24 12:21 BP 115/71 12/07/24 12:21 Pulse Ox 98 12/07/24 12:21 O2 Del Method Room Air 12/07/24 12:21 12/06/24 12/07/24 12/07/24 22:59 06:59 14:59 Intake Total 250 / 300 350 / 650 590 / 590 Balance 250 / 300 350 / 650 590 / 590 Weight last 48 hrs Weight 249 lb 6.4 oz Weight 248 lb Weight 248 lb Physical Exam 2 Narrative: GENERAL: A&O x 3 VASCULAR: DP/PT pulses palpable 2/4 with CFT intact, <3seconds to distal digits DERMATOLOGICAL: Right foot: Ulceration under the right 5th metatarsal measuring 4.0 x 5.0 x 1.4 cm, with undermining 0.3 cm from 6 o'clock to 9 o'clock position. Hyperkeratotic borders, granular wound bed. Positive probe to bone. Active serous drainage MUSCULOSKELETAL: 5/5 muscle strength in all 4 quadrants of the lower extremity when tested against resistance. Cavovarus foot type. Mild tenderness with palpation of periincisional area right foot tenderness with calf squeeze of right lower extremity NEUROLOGICAL: Neurological sensation to the affected foot and ankle is diminished through L4-S1 dermatomes via 10g SWMF, diminished sensation extends proximally to the level of the ankle bilaterally. Data 12/07/24 04:45 12/07/24 04:45 Micro: Microbiology 12/06/24 14:24 Blood Culture - Preliminary Blood SPECIMEN COLLECTED A&P Assessment and plan (1) Ulcer of right foot with fat layer exposed: (2) Cellulitis of right anterior lower leg: (3) Uncontrolled diabetes mellitus: Qualifiers: Diabetes mellitus type: type 2 Glycemic state: with hyperglycemia Q ualified Code(s): E11.65 - Type 2 diabetes mellitus with hyperglycemia Plan - Right foot full-thickness ulceration with associated cellulitis, concern for abscess -Labs and vitals reviewed -Cultures recent wound care culture show Enterobacter -Abx Vanco/Zosyn -Diet: Okay for diet - MRI right foot obtained and independently interpreted by me. This shows abscess formation associated with fifth metatarsal amputation site. There also has reactive changes to fifth metatarsal with marrow edema consistent with osteomyelitis of fifth metatarsal resection site. This correlates clinically with clinical positive probe to bone. Based on these findings I will plan to take patient to the operating room on 12/09/2024 for incision bone cortex right foot with possible partial fifth ray resection. Case was discussed with hospitalist. Due to polymicrobial infection right foot and extensive history of antibiotic usage in the past 6 months patient will be discharged with PICC line regardless with long-term IV antibiotics. This was discussed with patient in detail at bedside. All patient questions were answered. Infectious disease will be consulted. -Pain Mgmt: Per primary team -Weight bearing: Weightbearing to heel for transfers only -Dressings: Dry sterile dressing -Continue current Abx therapy until ID and Sensitivity results -Trend labs -Discharge plan: To be determined. Patient will need PICC line prior to discharge. -Podiatry will continue to round on patient daily and provide recommendations PDMP PDMP Reviewed: Not Reviewed Attestations 2 Medical Necessity Statement*: Surgical debridement planned for 12/09/2024 Coding Level of Care Code Acute Code for Chg Fwd Diagnoses Ulcer of right foot with fat layer exposed L97.512 Cellulitis of right anterior lower leg L03.115 Uncontrolled type 2 diabetes mellitus with hyperglycemia E11.65 Diabetes mellitus type: type 2 Glycemic state: with hyperglycemia
--- NOTE | 2024-12-07 13:12 | P.PN_ITS ---
Subjective 2 Subjective: No acute events overnight. Patient has remained hemodynamically stable and afebrile. Denies any nausea, vomiting, headache. Seen with mother at bedside. Vitals/I&O/Wt Last Vital Signs Temp 98.1 F 12/07/24 12:21 Pulse 68 12/07/24 12:21 Resp 16 12/07/24 12:21 BP 115/71 12/07/24 12:21 Pulse Ox 98 12/07/24 12:21 O2 Del Method Room Air 12/07/24 12:21 12/06/24 12/07/24 12/07/24 22:59 06:59 14:59 Intake Total 250 / 300 350 / 650 590 / 590 Balance 250 / 300 350 / 650 590 / 590 Weight last 48 hrs Weight 113.126 kg Weight 112.491 kg Weight 112.491 kg Physical Exam 2 Narrative: General: No acute distress, AO x3 HEENT: PERRLA, pupils bilaterally equal and reactive Chest: Normal vesicular breath sounds, no added sounds, equal good air entry bilaterally CVS: S1-S2 regular, no murmurs, no tachycardia, no gallops, no rubs Abdomen: Soft, nontender, no organomegaly, bowel sounds present Neuro: No focal deficits, no facial deformity, AO x3, power 5/5 in all limbs Extremity: NARRATIVE EXTREMITY EXAM: Data 12/07/24 04:45 12/07/24 04:45 Micro: Microbiology 12/06/24 14:24 Blood Culture - Preliminary Blood SPECIMEN COLLECTED A&P Assessment and plan (1) Diabetic foot ulcer: Chronic wound with worsening recently. Has been on multiple antibiotics for the last 6 months. Appreciate ESR and CRP. Both elevated. Appreciate various wound cultures from the same wound growing Enterobacter, Enterococcus, Klebsiella, E. coli, Staph aureus. Appreciate MRI. Concern for abscess and osteomyelitis. Appreciate podiatry recommendations. MRSA swab negative. Will consult ID for further recommendations. For now continue with empiric IV vancomycin and Zosyn. Lower limb Doppler negative for DVT. Appreciate arterial duplex negative for significant stenosis. Possible plan for wound debridement and bone resection on Monday. Qualifiers: Diabetes mellitus type: type 2 Diabetic foot ulcer location: u nspecified part of foot Laterality: right Non-pressure ulcer stage: with fat layer exposed Qualified Code(s): E11.621 - Type 2 diabetes mellitus with foot ulcer; L97.512 - Non-pressure chronic ulcer of other part of right foot with fat layer exposed (2) Cellulitis of right anterior lower leg: (3) Uncontrolled diabetes mellitus: A1c of 10.8. Patient is glipizide and metformin at home. Agreed to switch to insulin on discharge. Continue with sliding scale at moderate dose protocol for next 24 hours. Will plan for adding Lantus depending on insulin requirement in next 24 hours. Qualifiers: Diabetes mellitus type: type 2 Glycemic state: with hyperglycemia Q ualified Code(s): E11.65 - Type 2 diabetes mellitus with hyperglycemia (4) Hypertension: Goal blood pressure less than 140/90 mmHg. Continue with home dose of lisinopril for now. Qualifiers: Hypertension type: secondary to endocrine disorders Qualified Code(s): I15.2 - Hypertension secondary to endocrine disorders (5) Dyslipidemia associated with type 2 diabetes mellitus: (6) Osteomyelitis: Plan Full code Carb consistent cardiac diet Protonix for PUD prophylaxis Heparin 5000 every 12 hourly for DVT prophylaxis. PDMP PDMP Reviewed: Not Reviewed Attestations 2 Medical Necessity Statement*: Requires further hospitalization for management of diabetic foot ulcer with osteomyelitis in a patient with uncontrolled diabetes mellitus requiring outpatient antibiotics and debridement Diagnoses Diabetic ulcer of right foot associated with type 2 diabetes mellitus, with fat layer exposed, unspecified part of foot E11.621; L97.512 Diabetes mellitus type: type 2 Diabetic foot ulcer location: unspecified part of foot Laterality: right Non-pressure ulcer stage: with fat layer exposed Cellulitis of right anterior lower leg L03.115 Uncontrolled type 2 diabetes mellitus with hyperglycemia E11.65 Diabetes mellitus type: type 2 Glycemic state: with hyperglycemia Hypertension due to endocrine disorder I15.2 Hypertension type: secondary to endocrine disorders Dyslipidemia associated with type 2 diabetes mellitus E11.69; E78.5 Osteomyelitis M86.9
--- NOTE | 2024-12-07 16:09 | P.CONIM_ITS ---
Providers/Reason For Consult 2 Consulting Physician/Specialty*: Abbie Cuellar MD/ Infectious Disease Reason for Consult*: osteomyelitis Requesting Physician: Armani Ramires MD Attending Physician: Armani Ramires MD Primary Care Provider: Stephie Morales DO History of Present Illness History of Present Illness Asif Guerra is a 49 year old male with a past medical history of poorly controlled type 2 diabetes mellitus, hypertension, chronic right foot diabetic ulcer dating back at least 8 years or so. Per review of wound care notes in patient's chart, patient's right foot ulcer started approximately on the right lateral foot and he has had multiple issues with recurrent cellulitis and swelling in his lower extremities. He has been following up with the wound care clinic and podiatry service for many years now. He undergoes debridement from time to time. He has been treated with several oral antibiotics over the years including Augmentin, levofloxacin, doxycycline, Bactrim.he has a cavus deformity of the foot. In 2021 he underwent an I&D by podiatry and drain was left in place. He was treated with oral antibiotics at the time. Patient continues to weight-bear and is unable to comply with strict offloading measures. In February 2023 he had an MRI which were negative for acute osteomyelitis however showed ulceration overlying the head of the fifth metatarsal and fluid in the fifth MTP joint suspicious for infection. In July 2024 he had an x-ray of the foot that revealed destruction of the fifth metatarsal head which was new. He was treated with Bactrim at this time. For this osteomyelitis he underwent removal of the proximal phalanx of the right fifth digit and fifth metatarsal head. No definite osteomyelitis was noted on path. CX showed E. fecalis. He also had a left hallux fracture at that time which was managed with ORIF. By August 2024, he was noted to have orthopedic failure of the left foot and hardware was eventually removed. Course was complicated by wound dehiscence.. Thereafter he developed a new plantar ulcer in September 2024 which was full- thickness. He had received doxycycline Bactrim, fluoroquinolones and clindamycin recently none of which prevented the progression of this ulcer. Abscess was drained in the emergency room on October 14, 2024. Again showed growth of Enterococcus faecalis which was treated with clindamycin. He has been following up with wound care but it is documented that patient had been using his own wound healing products. Apparently patient applied packing with turmeric on it. On his next visit in November 2024 his dressings had a combination of sugar substitute that he had been utilizing over his wound in addition to the derma blue recommended by wound care clinic. He has continued to use turmeric and some [id number] wound healing gel which he states were homeopathic ingredients. He was directed to come to the emergency room on December 06, 2024 as his pain worsened. He did not have any relief with starting antibiotics this time. MRI of the foot was performed which showed osteomyelitis of the fifth metatarsal at the amputated mid diaphyseal tip. Review of Systems 2 General: Reports: 10 or more systems reviewed and unremarkable except in HPI and below Const: Denies: fever(s), chills or body aches Eyes: Denies: change in vision, blurry vision or photophobia ENMT: Reports: hoarseness; Denies: throat pain, enlarged tonsils, odynophagia or nasal congestion Card: Denies: chest pain, palpitations, irregular heart rhythm, edema, swelling of feet/ankles, lightheadedness, pre-syncope, dyspnea on exertion or orthopnea Resp: Denies: dyspnea, productive cough, non-productive cough, wheezing, stridor, pain on inspiration, change in phlegm color, hemoptysis or chest congestion GI: Denies: abdominal pain, nausea, vomiting, hematemesis, coffee ground emesis, dysphagia, heartburn, diarrhea, constipation, GI cramping, change in stool character, hematochezia or melena : Denies: flank pain, dysuria, urinary frequency, urinary urgency, urinary hesitancy or hematuria Musc: Denies: neck pain, back pain, extremity pain, joint swelling, joint warmth or deformity Neuro: Denies: headache(s), numbness in extremities, weakness in extremities, sensory changes, difficulty walking, frequent falls, dizziness, vertigo, behavioral changes, Slurred speech present or seizure-like activity Psych: Denies: anxiety, depression, suicidal ideation or homicidal ideation Endo: Denies: polyuria, polydipsia, tired all the time, cold intolerance or hot flashes Amaury/Lymph: Denies: easy bruising or easy bleeding Medications/Allergies Home Medications ?Medication ?Instructions ?Recorded ?Confirmed ?Last Taken ?Type lisinopril 10 mg tablet 10 mg PO BEDTIME 10/08/2412/05/24 Rx hypertension/kidney #90 tabs glipizide 10 mg tablet 10 mg PO QAM diabetes #30 ta bs 12/03/24 12/06/24 12/06/24 Rx metformin 500 mg tablet 500 mg PO BID diabetes #60 t abs 12/03/24 12/06/24 12/06/24 Rx levofloxacin 750 mg tablet 750 mg PO DAILY #7 tabs 12/06/24 12/06/24 Rx amoxicillin 875 mg-potassium 1 tab PO Q12H 12/06/2412/06/24 History clavulanate 125 mg tablet Allergies Allergy/AdvReac Type Severity Reaction Status Date / Time No Known Allergies Allergy Verified 12/06/24 12:45 Current Medications Generic Name Dose Route Start Last Admin Trade Name Freq PRN Reason Stop Dose Admin Aspirin 81 mg 12/07/24 09:00 12/07/24 08:06 Aspirin 81 Mg Ec Tablet PO 81 mg DAILY TACHO Administration Atorvastatin Calcium 20 mg 12/06/24 21:00 12/06/24 20:37 Atorvastatin 40 Mg Tablet PO 20 mg BEDTIME TACHO Administration Docusate Sodium 100 mg 12/06/24 19:45 12/07/24 08:06 Docusate Sodium 100 Mg Capsule PO 100 mg BID TACHO Administration Famotidine 20 mg 12/06/24 19:45 12/07/24 08:06 Famotidine 20 Mg Tablet PO 20 mg BID TACHO Administration Heparin Sodium (Porcine) 5,000 unit 12/06/24 19:45 12/07/24 08:07 Heparin 5,000 Unit/Ml Inj 1 Ml SUBCUT 5,000 unit Q12H TACHO Administration Piperacillin Sod/Tazobactam 50 mls @ 12.5 mls/hr 12/06/24 22:30 12/07/24 15:29 Sod 3.375 gm/ Sodium Chloride IV 12.5 mls/hr Q8H TACHO Administration Insulin Human Lispro 0 unit 12/06/24 19:45 12/07/24 12:18 Insulin Lispro 100 Unit/1 Ml SUBCUT 6 unit WM&BEDTIME TACHO Administration Protocol Lisinopril 10 mg 12/06/24 21:00 12/06/24 20:37 Lisinopril 10 Mg Tablet PO 10 mg BEDTIME TACHO Administration PFSH Acute 2 PFSH: Medical History (Updated 12/07/24 @ 13:31 by Armani Ramires MD) Osteomyelitis Abscess of right foot Acute foot pain Recurrent umbilical hernia Adult BMI 34.0-34.9 kg/sq m Onychomycosis Bronchitis Dyslipidemia associated with type 2 diabetes mellitus Uncontrolled diabetes mellitus Type 2 diabetes mellitus Diabetic foot ulcer Hypertension Surgical History History of hernia repair Umbilical hernia repair ~ 2019 Family History Other CAD (coronary artery disease) Social History Smoking and tobacco/nicotine status: never used tobacco/nicotine Alcohol intake: never Vitals/I&O/Wt Last Vital Signs Temp 98.1 F 12/07/24 12:21 Pulse 68 12/07/24 12:21 Resp 16 12/07/24 12:21 BP 115/71 12/07/24 12:21 Pulse Ox 98 12/07/24 12:21 O2 Del Method Room Air 12/07/24 12:21 12/07/24 12/07/24 12/07/24 06:59 14:59 22:59 Intake Total 350 / 650 1070 / 1070 Balance 350 / 650 1070 / 1070 Weight last 48 hrs Weight 113.126 kg Weight 112.491 kg Weight 112.491 kg Physical Exam 2 Narrative: General: No acute distress, AO x3 HEENT: PERRLA, pupils bilaterally equal and reactive, pallors not present Chest: Normal vesicular breath sounds, no added sounds, equal good air entry bilaterally CVS: S1-S2 regular, no murmurs, no tachycardia, no gallops, no rubs Abdomen: Soft, nontender, no organomegaly, bowel sounds present Neuro: No focal deficits, no facial deformity, AO x3, power 5/5 in all limbs Data 12/07/24 04:45 12/07/24 04:45 Other Labs: NAME: Asif Guerra LOC: [facility] U #: [id number] AGE/SX: 49/M ROOM: R E12/03/[address]: Leon Ochoa : 1975 BED: D IS: FAX #: STATUS: DEP AMB TLOC: Spec #: [id number] Miri: 12/03/24 Status: COMP Req #: [id number] Recd: 12/03/[address]: Leon Ochoa Src: Foot SpDesc: Right Ordered: Tissue Cult GS Procedure Result Verified Site Gram Stain Final 12/04/24-1219 Result RARE GRAM NEGATIVE RODS RARE WHITE BLOOD CELLS Tissue Culture Final 12/05/24-0949 Organism 1 Enterobacter cloacae Growth HEAVY MODERATE MIXED SUPERFICIAL DECLAN ON DAY 2 E cloacae M.I.C. RX --------- ------ * Amikacin <=16 S * Aztreonam <=4 S * Cefepime <=8 S * Ceftriaxone <=1 S * Cefuroxime 8 S * Ciprofloxacin <=1 S * Gentamicin <=2 S * Imipenem <=1 S * Levofloxacin <=2 S * Tetracycline <=4 S * Trimethoprim/Sulfamethoxazole <=2/38 S * Piperacillin/Tazobactam <=16 S Tissue Culture Preliminary (changed) 12/04/24-1430 Organism 1 Gram Negative Rods Growth HEAVY MODERATE MIXED SUPERFICIAL DECLAN ON DAY 1 RESULTS TO FOLLOW NAME: Asif Guerra LOC: [facility] U #: [id number] AGE/SX: 48/M ROOM: R E10/14/[address]: Kodak Hernández DPM : 1975 BED: D IS: FAX #: STATUS: DEP NATHAN TLOC: Spec #: [id number] Miri: 10/14/241540 Status: COMP Req #: [id number] Recd: 10/14/241612 Sub Dr: Kodak Hernández DPM Src: Foot Rt SpDesc: Ordered: Wound Procedure Result Verified Site Wound Culture Final 10/18/24-1408 Organism 1 Enterococcus faecalis Growth MODERATE HEAVY MIXED SUPERFICIAL DECLAN ON DAY 3 E faecalis M.I.C. RX --------- ------ * Ampicillin <=2 S * Linezolid 2 S * Penicillin 2 S Vancomycin 2 S Gentamicin Synergy Screen <=500 S Daptomycin 1 S Enterococcus faecalis: Gram Pos Combo 33-MScan Gentamicin Synergy Screen S Wound Culture Preliminary (changed) 10/16/24-1714 Organism 1 Strep species, gamma-hemolytic Growth MODERATE DAY 2, RESULTS TO FOLLOW Wound Culture Preliminary (changed) 10/15/24-1518 Organism 1 Strep species, gamma-hemolytic Growth MODERATE DAY 1, RESULTS TO FOLLOW NAME: Asif Guerra LOC: [facility] U #: [id number] AGE/SX: 48/M ROOM: R E07/31/[address]: Aubrey Chu(A : 1975 BED: D IS: FAX #: STATUS: DEP AMB TLOC: Spec #: [id number] Miri: 07/31/24 Status: COMP Req #: [id number] Recd: 07/31/[address]: Aubrey Chu([facility]) Src: [facility]: Right Ordered: Tissue Cult GS Procedure Result Verified Site Gram Stain Final 08/01/24-1210 Result NO ORGANISMS SEEN NO WHITE BLOOD CELLS Tissue Culture Final 08/02/24-1658 Organism 1 Enterococcus faecalis Growth FEW DAY 2 E faecalis M.I.C. RX --------- ------ * Ampicillin <=2 S * Linezolid 2 S * Penicillin 2 S Vancomycin 4 S Gentamicin Synergy Screen <=500 S Daptomycin 1 S Enterococcus faecalis: Gram Pos Combo 33-MScan Gentamicin Synergy Screen S Tissue Culture Preliminary (changed) 08/01/24-1251 Organism 1 Strep species, gamma-hemolytic Growth FEW DAY 1, RESULTS TO FOLLOW NAME: Asif Guerra LOC: [facility] U #: [id number] AGE/SX: 48/M ROOM: R E06/13/[address]: Aubrey Chu(A : 1975 BED: D IS: FAX #: STATUS: DEP AMB TLOC: Spec #: [id number] Miri: 06/13/24-1439 Status: COMP Req #: [id number] Recd: 06/13/[address]: Aubrey Chu([facility]) Src: Foot SpDesc: Right Ordered: Tissue Cult GS Procedure Result Verified Site Gram Stain Final 06/14/24-1201 Result NO WHITE BLOOD CELLS SEEN FEW GRAM NEGATIVE RODS Tissue Culture Final 06/16/24 Organism 1 Enterobacter cloacae Growth HEAVY Organism 2 Klebsiella pneumoniae Growth HEAVY FEW MIXED SUPERFICIAL DECLAN ON DAY 3 E cloacae Kleb pneum M.I.C. RX M.I.C. RX --------- ------ --------- ------ * Amikacin <=16 S <=16 S * Amoxicillin/Clavulanate <=8/4 S * Ampicillin/Sulbactam <=8/4 S * Aztreonam <=4 S <=4 S * Cefepime <=8 S <=8 S * Ceftriaxone <=1 S <=1 S * Cefuroxime 16 I <=4 S * Ciprofloxacin <=1 S <=1 S * Gentamicin <=2 S <=2 S * Imipenem <=1 S <=1 S * Levofloxacin <=2 S <=2 S * Tetracycline <=4 S <=4 S * Trimethoprim/Sulfamethoxazole <=2/38 S <=2/38 S * Piperacillin/Tazobactam <=16 S <=16 S Tissue Culture Preliminary (changed) 06/15/24-1530 Organism 1 Gram Negative Rods Growth HEAVY Organism 2 Gram Negative Rods#2 Growth HEAVY FEW MIXED SUPERFICIAL DECLAN ON DAY 2 RESULTS TO FOLLOW Tissue Culture Preliminary (changed) 06/14/24-1201 HEAVY GRAM NEGATIVE RODS ON DAY 1 RESULTS TO FOLLOW NAME: Asif Guerra Ingrid LOC: [facility] U #: [id number] AGE/SX: 48/M ROOM: R E11/30/[address]: Aubrey Chu(A : 1975 BED: D IS: FAX #: STATUS: DEP AMB TLOC: Spec #: [id number] Miri: 11/30/23 Status: COMP Req #: [id number] Recd: 11/30/[address]: Aubrey Chu([facility]) Src: Foot SpDesc: Right Ordered: Tissue Cult GS Procedure Result Verified Site Gram Stain Final 12/01/23 Result MODERATE GRAM NEGATIVE RODS FEW GRAM POSITIVE COCCI IN PAIRS NO WHITE BLOOD CELLS Tissue Culture Final 12/02/23 Organism 1 Escherichia coli Growth HEAVY MODERATE MIXED SUPERFICIAL DECLAN ON DAY 2 E coli M.I.C. RX --------- ------ * Amikacin <=16 S * Amoxicillin/Clavulanate 16/8 I * Ampicillin >16 R * Ampicillin/Sulbactam >16/8 R * Aztreonam <=4 S * Cefepime <=8 S * Ceftriaxone <=1 S * Cefuroxime <=4 S * Ciprofloxacin <=1 S * Gentamicin <=2 S * Imipenem <=1 S * Levofloxacin <=2 S * Tetracycline <=4 S * Trimethoprim/Sulfamethoxazole >2/38 R * Piperacillin/Tazobactam 32 I Tissue Culture Preliminary (changed) 12/01/23 Organism 1 Gram Negative Rods Growth HEAVY MODERATE MIXED SUPERFICIAL DECLAN ON DAY 1 RESULTS TO FOLLOW NAME: Asif Guerra LOC: [facility] U #: [id number] AGE/SX: 47/M ROOM: R E02/09/[address]: Ember Alvares : 1975 BED: D IS: FAX #: STATUS: DEP [facility] TLOC: Spec #: [id number] Miri: 02/09/23 Status: COMP Req #: [id number] Recd: 02/09/[address]: Ember Alvares Src: Foot SpDesc: Right Ordered: Tissue Cult GS Procedure Result Verified Site Gram Stain Final 02/10/23 Result NO ORGANISMS SEEN NO WHITE BLOOD CELLS Tissue Culture Final 02/12/23 Organism 1 Staphylococcus aureus Growth HEAVY HEAVY MIXED SUPERFICIAL DECLAN ON DAY 3 S aureus M.I.C. RX --------- ------ * Amoxicillin/Clavulanate <=4/2 S * Ampicillin <=2 R * Ampicillin/Sulbactam <=8/4 S * Ceftriaxone <=8 S * Ciprofloxacin >2 R * Clindamycin >4 R * Erythromycin >4 R * Gentamicin <=4 S * Levofloxacin <=1 S * Linezolid 2 S * Oxacillin 0.5 S * Penicillin <=0.03 R * Rifampin <=1 S * Tetracycline <=4 S * Trimethoprim/Sulfamethoxazole <=0.5/9.5 S Vancomycin 2 S Daptomycin 1 S Tissue Culture Preliminary (changed) 02/11/23-1631 Organism 1 Coag positive Staphylococcus Growth HEAVY Organism 2 Coag negative Staphylococcus Growth HEAVY DAY 2, RESULTS TO FOLLOW Tissue Culture Preliminary (changed) 02/10/23-1703 MODERATE MIXED SUPERFICIAL DECLAN ON DAY 1 Ordering Provider/Ordering MD: Cherrie Ramírez Date of Service: 12/07/24 Procedure(s): MR foot RT wo/w con [id number] Accession Number(s): [id number] Report Number: [id number] PROCEDURE INFORMATION: Exam: MR Right Lower Extremity Other Than Joint Without and With Contrast; Foot Exam date and time: 12/07/2024 11:19 AM Age: 49 years old Clinical indication: Pain; Edema; Yes, it is localized; Right; Prior surgery; Surgery date: 3-7 days post-operative; Surgery type: Several debridements of ulcer on lateral side of left foot; Additional info: Infection/diabetic foot ulcer TECHNIQUE: Imaging protocol: Magnetic resonance imaging of the right lower extremity without and with contrast. Exam focused on the foot. Contrast material: MULTIHANCE; Contrast volume: 20 ml; Contrast route: INTRAVENOUS (IV); COMPARISON: MR foot RT wo/w con [id number] 03/09/2023 3:09 PM FINDINGS: Bones/joints: Contiguous decreased T1 marrow signal in the 5th intermediate phalanx base as well as the distal head of the 5th metatarsal with previous amputation in the mid diaphyseal region. Mild reactive osteitis in the remainder of 5th metatarsal. Moderate- severe degenerative change in the forefoot, most prominently of the 4/5 tarsometatarsal joints. Remote, healed fracture at the proximal metaphysis of the 4th metatarsal. Contour deformity of the proximal metaphysis of the 5th metatarsal suggestive of remote, healed fracture. LIGAMENTS: Lisfranc ligament: Unremarkable. No evidence of tear. TENDONS: Flexor tendons of foot: Unremarkable. No evidence of tear. Tibialis posterior tendon: Unremarkable as visualized. Peroneal tendons: Chronic appearing split tear of the peroneus brevis with moderate tendinosis. Extensor tendons of foot: Unremarkable. No evidence of tear. Tibialis anterior tendon: Unremarkable as visualized. Tarsal canal (Sinus tarsi): Unremarkable. Tarsal tunnel: Unremarkable. Soft tissues: Small soft tissue ulcer with moderate edema/debris in the lateral forefoot, contiguous with a plantar ulcer. Few nonenhancing tiny pockets of fluid suspicious for tiny abscesses, with adjacent moderate phlegmonous change in the lateral forefoot. Moderate dorsal forefoot subcutaneous and soft tissue inflammatory change. Correlate for cellulitis. Plantar fascia: Unremarkable as visualized. MR/MR foot RT wo/w con [id number] IMPRESSION: 1. Osteomyelitis of the 5th metatarsal at the amputated mid diaphyseal tip. 2. Mid lateral forefoot small ulcer, with trace abscesses in the plantar and lateral forefoot. 3. Moderate dorsal forefoot subcutaneous and soft tissue inflammatory change. Correlate for cellulitis. US/[place] [id number] IMPRESSION: No stenosis or occlusion. Micro: Microbiology 12/06/24 14:24 Blood Culture - Preliminary Blood NEGATIVE TO DATE A&P PDMP PDMP Reviewed: Not Reviewed Coding Level of Care Code Acute Code for Chg Fwd
[2024-12-07 16:58] LABS: Glucose Point of Care 208 mg/dL (70-110)
[2024-12-07] MEDS: atorvastatin 40 mg Tablet 20 MG PO (20:25)
[2024-12-07 21:38] LABS: Glucose Point of Care 254 mg/dL (70-110)
[2024-12-07] MEDS: vancomycin 1,750 MG/350 ML PIGGYBACK 175 MG IV (21:47)
[2024-12-08] VITALS (7 sets, daily range): BP systolic 110–130; BP diastolic 64–78; PULSE 60–74; RESP 16–17; TEMP 36.4–36.8; O2SAT 95–97
[2024-12-08 04:56] LABS: Basophils % 0.6 %; Eosinophils # 0.3 10^3/uL (0.0-0.8); Eosinophils % 5.8 %; Hematocrit 38.9 % (37-53); Lymphocytes # 2.2 10^3/uL (0.8-4.8); Lymphocytes % 41.3 %; Mean Corpuscular HGB Conc 32.9 g/dL (30-55); Mean Platelet Volume 11.2 fL (7.4-10.4); Monocytes # 0.6 10^3/uL (0.2-0.9); Monocytes % 10.8 %; Neutrophils # 2.18 10^3/uL (1.8-7.7); Neutrophils % 41.1 %; Nucleated Red Blood Cells % 0 %; Platelet Count 198 10^3/cmm (157-399); Red Blood Count 4.42 10^6/uL (3.85-5.65); Red Cell Distribution Width 12.8 % (12.1-15.1)
[2024-12-08 05:28] LABS: Alanine Aminotransferase 10 U/L (0-41); Albumin Level 3.3 g/dL (3.5-5.2); Alkaline Phosphatase 115 U/L (40-130); Anion Gap 14.3 (5-19); Aspartate Amino Transferase 11 U/L (0-40); Blood Urea Nitrogen 9 mg/dL (6-20); Calcium 8.7 mg/dL (8.5-10.5); Carbon Dioxide 26 mmol/L (22-29); Chloride 99 mmol/L (98-107); Globulin 3.6 g/dL (1.3-4.6); Glomerular Filtration Rate 143.2 mL/min (90-130); Glucose 293 mg/dL (65-115); Magnesium 1.7 mg/dL (1.7-2.3); Osmolality Calculated 289 mOsm/kg (285-295); Phosphorus 3.5 mg/dL (2.5-4.5); Potassium 4.3 mmol/L (3.5-5.1); Sodium 135 mmol/L (136-145); Total Bilirubin 0.4 mg/dL (0.15-1.2); Total Protein 6.9 g/dL (6.6-8.7)
[2024-12-08] MEDS: vancomycin 1,750 MG/350 ML PIGGYBACK 175 MG IV ×3 (06:03→22:21)
[2024-12-08 06:27] LABS: Glucose Point of Care 335 mg/dL (70-110)
[2024-12-08] MEDS: insulin lispro 100 unit/1 mL SUBCUT ×4 (07:59→20:10)
[2024-12-08] MEDS: docusate sodium 100 mg Capsule PO ×2 (07:59→17:11)
[2024-12-08] MEDS: aspirin 81 mg EC Tablet PO (07:59)
[2024-12-08] MEDS: heparin 5,000 unit/mL INJ 1 mL 5000 UNIT SUBCUT ×2 (08:01→20:10)
[2024-12-08] MEDS: famotidine 20 mg Tablet PO ×2 (08:01→17:11)
[2024-12-08] MEDS: piperacillin-tazobactam 3.375 GM in sodium chloride 0.9% (plus) 50 ML IV ×2 (08:13→17:21)
[2024-12-08 11:27] LABS: Glucose Point of Care 299 mg/dL (70-110)
[2024-12-08] MEDS: insulin glargine 100 units/1 mL 10 UNIT SUBCUT (11:44)
--- NOTE | 2024-12-08 12:41 | P.PN_ITS ---
Subjective 2 Subjective: Patient seen at bedside this morning. Resting comfortably. No overnight events. Plan for OR tomorrow 12/09/2024 Vitals/I&O/Wt Last Vital Signs Temp 98.2 F 12/08/24 11:50 Pulse 69 12/08/24 11:50 Resp 17 12/08/24 11:50 BP 122/76 12/08/24 11:50 Pulse Ox 96 12/08/24 11:50 O2 Del Method Room Air 12/08/24 11:50 12/07/24 12/08/24 12/08/24 22:59 06:59 14:59 Intake Total 590 / 1660 400 / 2060 590 / 590 Balance 590 / 1660 400 / 2060 590 / 590 Weight last 48 hrs Weight 251 lb 14.4 oz Weight 249 lb 6.4 oz Weight 248 lb Weight 248 lb Physical Exam 2 Narrative: GENERAL: A&O x 3 VASCULAR: DP/PT pulses palpable 2/4 with CFT intact, <3seconds to distal digits DERMATOLOGICAL: Right foot: Ulceration under the right 5th metatarsal measuring 4.0 x 5.0 x 1.4 cm, with undermining 0.3 cm from 6 o'clock to 9 o'clock position. Hyperkeratotic borders, granular wound bed. Positive probe to bone. Active serous drainage MUSCULOSKELETAL: 5/5 muscle strength in all 4 quadrants of the lower extremity when tested against resistance. Cavovarus foot type. Mild tenderness with palpation of periincisional area right foot tenderness with calf squeeze of right lower extremity NEUROLOGICAL: Neurological sensation to the affected foot and ankle is diminished through L4-S1 dermatomes via 10g SWMF, diminished sensation extends proximally to the level of the ankle bilaterally. Data 12/08/24 04:35 12/08/24 04:35 Micro: Microbiology 12/06/24 14:19 Blood Culture - Preliminary Blood SPECIMEN COLLECTED 12/06/24 14:24 Blood Culture - Preliminary Blood NEGATIVE TO DATE A&P Assessment and plan (1) Ulcer of right foot with fat layer exposed: (2) Cellulitis of right anterior lower leg: (3) Uncontrolled diabetes mellitus: Qualifiers: Diabetes mellitus type: type 2 Glycemic state: with hyperglycemia Q ualified Code(s): E11.65 - Type 2 diabetes mellitus with hyperglycemia Plan - Right foot full-thickness ulceration with associated cellulitis, concern for abscess -Labs and vitals reviewed -Cultures recent wound care culture show Enterobacter -Abx Vanco/Zosyn -Diet: N.p.o. at midnight - Plan for surgical intervention tomorrow 12/09/24. This will be in the form of incision bone cortex right foot versus partial fifth ray resection. Details of surgery were discussed with patient. All patient questions answered. N.p.o. at midnight. Also had discussion with patient at bedside about discharge planning. Patient has a long history of noncompliance with wound dressings as well as weightbearing status. It is worthy to consider possible placement after discharge from hospital to help patient with daily wound care dressings and to facilitate nonweightbearing status to affected extremity. I told patient the lack of compliance will ultimately lead to amputation of right lower extremity if patient continues on the course that he is on. -Pain Mgmt: Per primary team -Weight bearing: Weightbearing to heel for transfers only -Dressings: Dry sterile dressing -Continue current Abx therapy until ID and Sensitivity results -Trend labs -Discharge plan: To be determined. Patient will need PICC line prior to discharge. -Podiatry will continue to round on patient daily and provide recommendations PDMP PDMP Reviewed: Not Reviewed Attestations 2 Medical Necessity Statement*: Awaiting surgery Coding Level of Care Code Acute Code for Chg Fwd Diagnoses Ulcer of right foot with fat layer exposed L97.512 Cellulitis of right anterior lower leg L03.115 Uncontrolled type 2 diabetes mellitus with hyperglycemia E11.65 Diabetes mellitus type: type 2 Glycemic state: with hyperglycemia
--- NOTE | 2024-12-08 13:09 | P.PN_ITS ---
Subjective 2 Subjective: No acute vents overnight. Patient remains hemodynamically stable and afebrile. Denies any nausea, vomiting, headache. Vitals/I&O/Wt Last Vital Signs Temp 98.2 F 12/08/24 11:50 Pulse 69 12/08/24 11:50 Resp 17 12/08/24 11:50 BP 122/76 12/08/24 11:50 Pulse Ox 96 12/08/24 11:50 O2 Del Method Room Air 12/08/24 11:50 12/07/24 12/08/24 12/08/24 22:59 06:59 14:59 Intake Total 590 / 1660 400 / 2060 950 / 950 Balance 590 / 1660 400 / 2060 950 / 950 Weight last 48 hrs Weight 114.26 kg Weight 113.126 kg Weight 112.491 kg Weight 112.491 kg Physical Exam 2 Narrative: General: No acute distress, AO x3 HEENT: PERRLA, pupils bilaterally equal and reactive Chest: Normal vesicular breath sounds, no added sounds, equal good air entry bilaterally CVS: S1-S2 regular, no murmurs, no tachycardia, no gallops, no rubs Abdomen: Soft, nontender, no organomegaly, bowel sounds present Neuro: No focal deficits, no facial deformity, AO x3, power 5/5 in all limbs Extremity: NARRATIVE EXTREMITY EXAM: Data 12/08/24 04:35 12/08/24 04:35 Micro: Microbiology 12/06/24 14:19 Blood Culture - Preliminary Blood SPECIMEN COLLECTED 12/06/24 14:24 Blood Culture - Preliminary Blood NEGATIVE TO DATE A&P Assessment and plan (1) Diabetic foot ulcer: Chronic wound with worsening recently. Has been on multiple antibiotics for the last 6 months. Appreciate ESR and CRP. Both elevated. Appreciate various wound cultures from the same wound growing Enterobacter, Enterococcus, Klebsiella, E. coli, Staph aureus. Appreciate MRI. Concern for abscess and osteomyelitis. Appreciate podiatry recommendations. MRSA swab negative. Will consult ID for further recommendations. For now continue with empiric IV vancomycin and Zosyn. Lower limb Doppler negative for DVT. Appreciate arterial duplex negative for significant stenosis. Possible plan for wound debridement and bone resection on Monday. Qualifiers: Diabetes mellitus type: type 2 Diabetic foot ulcer location: u nspecified part of foot Laterality: right Non-pressure ulcer stage: with fat layer exposed Qualified Code(s): E11.621 - Type 2 diabetes mellitus with foot ulcer; L97.512 - Non-pressure chronic ulcer of other part of right foot with fat layer exposed (2) Cellulitis of right anterior lower leg: (3) Uncontrolled diabetes mellitus: A1c of 10.8. Patient is glipizide and metformin at home. Agreed to switch to insulin on discharge. Continue with sliding scale at moderate dose protocol for next 24 hours. Will plan for adding Lantus depending on insulin requirement in next 24 hours. Qualifiers: Diabetes mellitus type: type 2 Glycemic state: with hyperglycemia Q ualified Code(s): E11.65 - Type 2 diabetes mellitus with hyperglycemia (4) Hypertension: Goal blood pressure less than 140/90 mmHg. Continue with home dose of lisinopril for now. Qualifiers: Hypertension type: secondary to endocrine disorders Qualified Code(s): I15.2 - Hypertension secondary to endocrine disorders (5) Dyslipidemia associated with type 2 diabetes mellitus: (6) Osteomyelitis: Plan Full code Carb consistent cardiac diet Protonix for PUD prophylaxis Heparin 5000 every 12 hourly for DVT prophylaxis. Plan for the day: Appreciate podiatry and ID recommendations. Plan for PICC line placement if blood cultures remained negative for 6 weeks of IV antibiotics. Will follow-up ID recommendations for outpatient IV antibiotics. Keep n.p.o. after midnight for OR debridement. Will request for bone d cultures. Continue with empiric IV vancomycin and Zosyn for now. Blood pressure is at goal. Appreciate blood sugars. Start on Lantus 10 units every morning. Uptitrate dose of insulins depending on blood sugar and insulin requirements. PDMP PDMP Reviewed: Not Reviewed Attestations 2 Medical Necessity Statement*: Requires further hospitalization for management of foot ulcer with osteomyelitis requiring debridement and set up of outpatient IV antibiotics, uncontrolled T2DM Diagnoses Diabetic ulcer of right foot associated with type 2 diabetes mellitus, with fat layer exposed, unspecified part of foot E11.621; L97.512 Diabetes mellitus type: type 2 Diabetic foot ulcer location: unspecified part of foot Laterality: right Non-pressure ulcer stage: with fat layer exposed Cellulitis of right anterior lower leg L03.115 Uncontrolled type 2 diabetes mellitus with hyperglycemia E11.65 Diabetes mellitus type: type 2 Glycemic state: with hyperglycemia Hypertension due to endocrine disorder I15.2 Hypertension type: secondary to endocrine disorders Dyslipidemia associated with type 2 diabetes mellitus E11.69; E78.5 Osteomyelitis M86.9
[2024-12-08 16:45] LABS: Glucose Point of Care 270 mg/dL (70-110)
[2024-12-08 19:47] LABS: Glucose Point of Care 242 mg/dL (70-110)
[2024-12-08] MEDS: lisinopril 10 mg Tablet PO (20:10)
[2024-12-08] MEDS: atorvastatin 40 mg Tablet 20 MG PO (20:10)
[2024-12-08 21:58] LABS: Vancomycin Trough 17.2 ug/mL (10-15)
[2024-12-09] VITALS (24 sets, daily range): BP systolic 83–125; BP diastolic 53–106; PULSE 57–76; RESP 11–19; TEMP 36.1–36.9; O2SAT 92–99
[2024-12-09] MEDS: piperacillin-tazobactam 3.375 GM in sodium chloride 0.9% (plus) 50 ML IV ×3 (00:24→20:29)
[2024-12-09 05:22] LABS: Basophils % 0.5 %; Eosinophils # 0.4 10^3/uL (0.0-0.8); Eosinophils % 4.7 %; Lymphocytes # 2.9 10^3/uL (0.8-4.8); Lymphocytes % 39.1 %; Mean Corpuscular HGB Conc 32.8 g/dL (30-55); Mean Corpuscular Hemoglobin 29.4 pg (27-33); Mean Corpuscular Volume 89.7 fl (82-101); Mean Platelet Volume 11.3 fL (7.4-10.4); Monocytes # 0.6 10^3/uL (0.2-0.9); Neutrophils # 3.48 10^3/uL (1.8-7.7); Nucleated Red Blood Cells % 0 %; Platelet Count 232 10^3/cmm (157-399); Red Blood Count 4.35 10^6/uL (3.85-5.65); Red Cell Distribution Width 12.7 % (12.1-15.1); White Blood Count 7.41 10^3/uL (3.29-11.43)
[2024-12-09 05:52] LABS: Alanine Aminotransferase 12 U/L (0-41); Albumin Level 3.3 g/dL (3.5-5.2); Alkaline Phosphatase 80 U/L (40-130); Anion Gap 14.1 (5-19); Aspartate Amino Transferase 16 U/L (0-40); Blood Urea Nitrogen 9 mg/dL (6-20); Calcium 8.8 mg/dL (8.5-10.5); Carbon Dioxide 24 mmol/L (22-29); Chloride 99 mmol/L (98-107); Creatinine Clr Calc Pharmacy 191.4455; Globulin 3.7 g/dL (1.3-4.6); Glomerular Filtration Rate 143.2 mL/min (90-130); Glucose 245 mg/dL (65-115); Magnesium 1.6 mg/dL (1.7-2.3); Osmolality Calculated 283 mOsm/kg (285-295); Phosphorus 2.9 mg/dL (2.5-4.5); Potassium 4.1 mmol/L (3.5-5.1); Sodium 133 mmol/L (136-145); Total Bilirubin 0.3 mg/dL (0.15-1.2)
[2024-12-09] MEDS: vancomycin 1,750 MG/350 ML PIGGYBACK 175 MG IV ×3 (06:26→23:59)
[2024-12-09] MEDS: insulin glargine 100 units/1 mL 10 UNIT SUBCUT (06:27)
[2024-12-09 06:39] LABS: Glucose Point of Care 249 mg/dL (70-110)
[2024-12-09] MEDS: heparin 5,000 unit/mL INJ 1 mL 5000 UNIT SUBCUT ×2 (08:24→20:29)
--- NOTE | 2024-12-09 08:37 | ANES.PREANE2 ---
Pre-Anesthetic Assessment Height/Weight: Height 5 ft 11 in Weight 251 lb 14.4 oz Temp Pulse Resp BP Pulse Ox O2 Del Method 98.4 F 60 17 120/70 98 Room Air 12/09/24 07:53 12/09/24 07:53 12/09/24 07:53 12/09/24 07:53 12/09/24 07:53 12/09/24 07:53 Preop Diagnosis: Cellulitis of lower extremity Operation Date: 12/09/24 09:05 Proposed Procedures p Incision And Drainage Incision of Bone Cortex(Right) - Kodak Hernández DPM Was Beta Thi taken within 24 hours: N/A Was Clonidine taken within 24 hours: N/A Last intake: Intake Last Liquid Date 12/08/24 Last Liquid Time 23:00 Last Solid Date 12/08/24 Last Solid Time 19:00 Social No alcohol and No tobacco Exam alert, oriented x 3, clear to auscultation bilaterally and regular rate & rhythm Airway Submandibular: within normal limits Cervical ROM: within normal limits Mallampati: Class II Comments: Comments: Multiple missing teeth denies any loose Anesthetic Plan ASA status: 3 Anesthesia: MAC Other: Patient reports no prior issues with anesthesia, similar procedure under MAC anesthetic in July without issues Prior MAC anesthesia earlier this year without issues NPO since yesterday Patient initially admitted 12/06/24 for cellulitis of lower extremity History of type 2 diabetes on metformin BMI 35 Hypertension on lisinopril. Preop BP 138/92 Labs reviewed from today and acceptable for procedure EKG showing the left anterior fascicular block Plan for MAC anesthetic with local via surgeon Medications/Allergies Home Medications ?Medication ?Instructions ?Recorded ?Confirmed ?Last Taken ?Type lisinopril 10 mg tablet 10 mg PO BEDTIME 10/08/24 12/06/24 12/05/24 Rx hypertension/kidney #90 tabs glipizide 10 mg tablet 10 mg PO QAM diabetes #30 tabs 12/03/24 12/06/24 12/06/24 Rx metformin 500 mg tablet 500 mg PO BID diabetes #60 tabs 12/03/24 12/06/24 12/06/24 Rx levofloxacin 750 mg tablet 750 mg PO DAILY #7 tabs 12/05/24 12/06/24 12/06/24 Rx amoxicillin 875 mg-potassium 1 tab PO Q12H 0412/06/24 12/06/24 History clavulanate 125 mg tablet Allergies Allergy/AdvReac Type Severity Reaction Status Date / Time No Known Allergies Allergy Verified 12/06/24 12:45 Current Medications Generic Name Dose Route Start Last Admin Trade Name Maye PRN Reason Stop Dose Admin Aspirin 81 mg 12/07/24 09:00 12/08/24 07:59 Aspirin 81 Mg Ec Tablet PO 81 mg DAILY TACHO Administration Atorvastatin Calcium 20 mg 12/06/24 21:00 12/08/24 20:10 Atorvastatin 40 Mg Tablet PO 20 mg BEDTIME TACHO Administration Docusate Sodium 100 mg 12/06/24 19:45 12/08/24 17:11 Docusate Sodium 100 Mg Capsule PO 100 mg BID TACHO Administration Famotidine 20 mg 12/06/24 19:45 12/08/24 17:11 Famotidine 20 Mg Tablet PO 20 mg BID TACHO Administration Heparin Sodium (Porcine) 5,000 unit 12/06/24 19:45 12/09/24 08:24 Heparin 5,000 Unit/Ml Inj 1 Ml SUBCUT 5,000 unit Q12H TACHO Administration Piperacillin Sod/Tazobactam 50 mls @ 12.5 mls/hr 12/06/24 22:30 12/09/24 04:27 Sod 3.375 gm/ Sodium Chloride IV Infused Q8H TACHO Infusion Vancomycin HCl 1,750 mg in 350 mls @ 175 mls/hr 12/07/24 22:30 12/09/24 06:26 Vancocin IV 175 mls/hr Q8H TACHO Administration Insulin Glargine 10 unit 12/08/24 10:55 12/09/24 06:27 Insulin Glargine 100 Units/1 Ml SUBCUT 10 unit QAM TACHO Administration Insulin Human Lispro 0 unit 12/06/24 19:45 12/09/24 08:27 Insulin Lispro 100 Unit/1 Ml SUBCUT Not Given WM&BEDTIME TACHO Protocol Lisinopril 10 mg 12/06/24 21:00 12/08/24 20:10 Lisinopril 10 Mg Tablet PO 10 mg BEDTIME TACHO Administration PFS Anesthesia Medical History (Updated 12/07/24 @ 13:31 by Armani Ramires MD) Osteomyelitis Abscess of right foot Acute foot pain Recurrent umbilical hernia Adult BMI 34.0-34.9 kg/sq m Onychomycosis Bronchitis Dyslipidemia associated with type 2 diabetes mellitus Uncontrolled diabetes mellitus Type 2 diabetes mellitus Diabetic foot ulcer Hypertension Surgical History History of hernia repair Umbilical hernia repair ~ 2019 Family History Other CAD (coronary artery disease) Social History Smoking and tobacco/nicotine status: never used tobacco/nicotine Alcohol intake: never Data Anesthesia 12/09/24 04:46 12/09/24 04:46 Short CBC 12/08/24 12/09/24 Range/Units 04:35 04:46 WBC 5.30 7.41 (3.29-11.43) 10^3/uL Hgb 12.80 12.80 (11.27-16.99) g/dL Hct 38.9 39.0 (37-53) % MCV 88.0 89.7 (82-101) fl Plt Count 198 232 (157-399) 10^3/cmm Neut % (Auto) 41.1 47.0 % Neut # (Auto) 2.18 3.48 (1.8-7.7) 10^3/uL BMP 12/08/24 12/09/24 04:35 04:46 Sodium 135 L 133 L Potassium 4.3 4.1 Chloride 99 99 Carbon Dioxide 26 24 BUN 9 9 Creatinine 0.6 L 0.6 L Glucose 293 H 245 H Calcium 8.7 8.8 Liver Function 12/08/24 12/09/24 Range/Units 04:35 04:46 Total Bilirubin 0.4 0.3 (0.15-1.2) mg/dL AST 11 16 (0-40) U/L ALT 10 12 (0-41) U/L Alkaline Phosphatase 115 80 (40-130) U/L Albumin 3.3 L 3.3 L (3.5-5.2) g/dL Microbiology 12/06/24 14:19 Blood Culture - Preliminary Blood NEGATIVE TO DATE Cardiac Studies: No Data to Display
--- NOTE | 2024-12-09 08:41 | W.PM.OPSUD ---
Surgery/Procedure H&P Update DATE OF PROCEDURE: December 09, 2024 DATE H&P PERFORMED: 12/06/24 H&P UPDATE INFORMATION: I have reviewed H&P completed within last 30 days, I have examined patient prior to procedure, No changes to prior documentation, H&P is in [facility] EMR on date indicated and Risks and benefits of the procedure reviewed PREOP DIAGNOSIS: Cellulitis of lower extremity PLANNED PROCEDURE: Operation Date: 12/09/24 09:05 Proposed Procedures p Incision And Drainage Incision of Bone Cortex(Right) - Kodak Hernández DPM
[2024-12-09 08:48] LABS: Glucose Point of Care 250 mg/dL (70-110)
[2024-12-09] MEDS: sodium chloride 0.9% 1,000 ML 30 ML IV (09:02)
[2024-12-09] MEDS: insulin regular-human 100 units/1 mL 10 UNIT IVP (09:02)
--- NOTE | 2024-12-09 09:43 | PM.OP ---
Operative Report Date of procedure: December 09, 2024 Surgeon: Kodak Hernández DPM Procedure: Date of procedure: 12/09/2024 Pre-op diagnosis: Osteomyelitis right fifth metatarsal Post-op diagnosis: Same Post-op findings: Degenerative changes fifth metatarsal amputation site consistent with osteomyelitis Procedure done: Incision bone cortex right foot fifth metatarsal CPT 88660 Implants: None Specimens removed: Soft tissue cultures right fifth metatarsal, bone culture right foot fifth metatarsal, right foot fifth metatarsal proximal margin sent to pathology as surgical specimen Surgeon: Dr. Kodak Hernández DPM Cook Room Supervisor: Miki Estimated blood loss: 5 cc Tourniquet time: 22 minutes Complications: None The patient presents with a severe foot infection involving right fifth metatarsal, characterized by erythema, swelling, and drainage. The infection is complicated by underlying conditions, including diabetes and peripheral vascular disease, which have contributed to the progression of the infection despite conservative management. Preoperative imaging and laboratory results indicate osteomyelitis, necessitating surgical intervention. The planned procedure is intended to address the infection, debride necrotic tissue, and, if necessary, assess the viability of surrounding structures to prevent further complications. The patient has been NPO since midnight. The history has been reviewed and the history and physical is current. The signed consent was confirmed and placed in the patient chart. Patient imaging has been reviewed and is consistent with the diagnosis. Under mild sedation, the patient was brought into the operating room and placed on the table in the supine position. Patient is receiving antibiotics around the clock on the floor, Therefore, additional antibiotic prophylaxix was not administered. MAC sedation was then performed by the anesthesiateam. A pneumatic tourniquet was then placed about the right ankle. A local field block was performed using 0.5% Marcaine plain. The operative extremity was then prepped and draped in the usual fashion. After prep, the following procedure was then performed. Attention was directed to the right foot. Full-thickness ulceration to plantar aspect of right foot measuring 3.5 x 3.5 x 1.5 cm. A [place] was inserted into the wound bed which was noted to probe to fifth metatarsal. This also probed out the lateral aspect of the foot at the site of a new opening measuring 0.3 x 0.3 x 1.5 cm. #15 blade was used to connect the wounds by incising over the free air when it was passed to the foot. Small amount of purulence was noted. Cultures aerobic and anaerobic were taken at this point and sent to micro for ID and sensitivity. Wound was opened up to expose the remaining portion of fifth metatarsal. A #15 blade was used to incise the cortex of the right fifth metatarsal to expose it in its entirety. There were degenerative changes of the fifth metatarsal and it was determined that resection of a portion of fifth metatarsal was warranted. Sagittal bone saw was used to resect the fifth metatarsal with care to preserve the fifth metatarsal base and attachment of peroneus brevis tendon. Distal aspect of fifth metatarsal was passed from the operative field and examined on the back table. Distal fifth metatarsal at previous amputation site showed degenerative changes consistent with osteomyelitis. Sagittal bone saw was used to resect this most distal portion. Distal portion of fifth metatarsal was sent to micro as bone culture. The proximal portion of amputated metatarsal was sent to pathology as surgical specimen. The site was irrigated with copious amounts of sterile saline. Remaining tissue appeared healthy and viable. Tourniquet was let down good hyperemic spots was noted to all digits of the right foot. Hemostasis was achieved via electrocautery. The incision was closed with 2-0 nylon in horizontal mattress fashion. The wound was packed with iodoform packing gauze 1/2 inch before the entire foot was dressed with 4 x 4 gauze, ABD pads, Kerlix, Mitesh bandage. The patient tolerated the procedure and anesthesia well and without complication. The patient was transported from the operating room to the recovery room with vital signs stable and vascular status intact to all digits of the right foot. Thepatient was instructed to remain nonweightbearing to the operative extremity, to keep surgical dressing clean, dry and intact. The patient will be transferred back to the floor once anesthesia criteria is met. I will continue to round on and follow the patient in the inpatientsetting and provide recommendations to stabilize the patient for discharge.
[2024-12-09 09:59] LABS: Glucose Point of Care 186 mg/dL (70-110)
--- NOTE | 2024-12-09 10:41 | ANE.PACU2 ---
Inpatient post-anesthesia follow up: Airway intact: Yes Vital signs: Temperature 97.6 F Pulse Rate 57 Respiratory Rate 11 Blood Pressure 106/69 Pulse Oximetry 96 Oxygen Delivery Me thod Room Air Oxygen Flow Rate Fraction of Inspir ed Oxygen Hydration adequate: Yes Nausea and vomiting: No Pain level: 1 Mental status: Baseline
[2024-12-09 11:09] LABS: Glucose Point of Care 205 mg/dL (70-110)
--- NOTE | 2024-12-09 11:44 | XRR_ITS ---
PROCEDURE INFORMATION: Exam: XR Chest Exam date and time: 12/09/2024 12:19 PM Age: 49 years old Clinical indication: Device placement; Picc; Additional info: Post picc insertion, christiano placing in 255-1. Should be ready at 1225 TECHNIQUE: Imaging protocol: Radiologic exam of the chest. Views: 1 view. COMPARISON: CT abdomen pelvis w con* [id number] 11/16/2023 3:07 PM FINDINGS: Tubes, catheters and devices: There is a right upper extremity PICC line. The tip projects in the expected location of the SVC/RA junction. Lungs: Patient has taken a suboptimal inspiration versus low lung volumes. There are no definite infiltrates detected. Pleural spaces: Unremarkable. No pleural effusion. No pneumothorax. Heart/Mediastinum: The heart size is within normal limits. Bones/joints: Unremarkable. XR/XR chest 1V portable [id number] IMPRESSION: 1. Suboptimal inspiration versus low lung volumes 2. No acute infiltrate 3. PICC line
--- NOTE | 2024-12-09 11:46 | P.PN_ITS ---
Subjective 2 Subjective: Patient was seen this morning, he was seen in postop recovery, denies any chest pain, no palpitations, no nausea, no vomiting, Vitals/I&O/Wt Last Vital Signs Temp 97.6 F 12/09/24 10:25 Pulse 57 L 12/09/24 10:40 Resp 11 L 12/09/24 10:40 BP 106/69 12/09/24 10:40 Pulse Ox 96 12/09/24 10:40 O2 Del Method Room Air 12/09/24 10:40 12/08/24 12/09/24 12/09/24 22:59 06:59 14:59 Intake Total 640 / 1640 520 / 2160 100 / 100 Output Total 5 / 5 Balance 640 / 1640 520 / 2160 95 / 95 Weight last 48 hrs Weight 114.26 kg Physical Exam 2 Const: COMMON NORMALS: no acute distress and patient oriented x3 Resp: COMMON NORMALS: normal respiratory effort, No retractions, No use of accessory muscles and clear to auscultation bilaterally AUSCULTATION: clear to auscultation bilaterally Cardio: COMMON NORMALS: regular rate, regular rhythm, S1 normal heart sound present and S2 normal heart sound present RATE: regular rate RHYTHM: r egular rhythm HEART SOUNDS: S1 normal heart sound present and S2 normal heart sound present GI: COMMON NORMALS: Normal to inspection, nondistended, normoactive bowel sounds present, Soft to palpation and non-tender PALPATION: Yes Soft to palpation Extremity: COMMON NORMALS: no pedal edema NARRATIVE EXTREMITY EXAM: Right lower extremity wrapped Neuro: COMMON NORMALS: patient oriented x3 Psych: COMMON NORMALS: mental status grossly normal Data 12/09/24 04:46 12/09/24 04:46 Micro: Microbiology 12/06/24 14:19 Blood Culture - Preliminary Blood NEGATIVE TO DATE A&P Assessment and plan (1) Diabetic foot ulcer: MR/MR foot RT wo/w con [id number] IMPRESSION: 1. Osteomyelitis of the 5th metatarsal at the amputated mid diaphyseal tip. 2. Mid lateral forefoot small ulcer, with trace abscesses in the plantar and lateral forefoot. 3. Moderate dorsal forefoot subcutaneous and soft tissue inflammatory change. Correlate for cellulitis. For now continue with empiric IV vancomycin and Zosyn. Lower limb Doppler negative for DVT arterial duplex negative for significant stenosis. Patient is status post incision of bone cortex right foot postop day 0 Dr. Hernández Plan Will arrange IV antibiotics, cefepime, daptomycin Follow surgical cultures Follow blood cultures PICC line to be placed Qualifiers: Diabetes mellitus type: type 2 Diabetic foot ulcer location: u nspecified part of foot Laterality: right Non-pressure ulcer stage: with fat layer exposed Qualified Code(s): E11.621 - Type 2 diabetes mellitus with foot ulcer; L97.512 - Non-pressure chronic ulcer of other part of right foot with fat layer exposed (2) Cellulitis of right anterior lower leg: (3) Uncontrolled diabetes mellitus: Continue Lantus Continue insulin sliding scale Qualifiers: Diabetes mellitus type: type 2 Glycemic state: with hyperglycemia Q ualified Code(s): E11.65 - Type 2 diabetes mellitus with hyperglycemia (4) Hypertension: Goal blood pressure less than 140/90 mmHg. Continue with home dose of lisinopril for now. Qualifiers: Hypertension type: secondary to endocrine disorders Qualified Code(s): I15.2 - Hypertension secondary to endocrine disorders (5) Dyslipidemia associated with type 2 diabetes mellitus: (6) Osteomyelitis: Plan Full code Carb consistent cardiac diet Protonix for PUD prophylaxis Heparin 5000 every 12 hourly for DVT prophylaxis. Plan for the day: A continue empiric IV antibiotics, arrange outpatient IV antibiotics, PICC line to be placed PDMP PDMP Reviewed: Not Reviewed Attestations 2 Medical Necessity Statement*: Patient requires hospitalization for right foot osteomyelitis Diagnoses Diabetic ulcer of right foot associated with type 2 diabetes mellitus, with fat layer exposed, unspecified part of foot E11.621; L97.512 Diabetes mellitus type: type 2 Diabetic foot ulcer location: unspecified part of foot Laterality: right Non-pressure ulcer stage: with fat layer exposed Cellulitis of right anterior lower leg L03.115 Uncontrolled type 2 diabetes mellitus with hyperglycemia E11.65 Diabetes mellitus type: type 2 Glycemic state: with hyperglycemia Hypertension due to endocrine disorder I15.2 Hypertension type: secondary to endocrine disorders Dyslipidemia associated with type 2 diabetes mellitus E11.69; E78.5 Osteomyelitis M86.9
--- NOTE | 2024-12-09 12:34 | PC.NURSE ---
0948 Dr. Hernández injected 30ml 0.5% sensorcaine into right foot for local anesthesia.
--- NOTE | 2024-12-09 13:29 | PICC.NOTE ---
Single lumen PICC placed to right basilic vein. Referred to vascular access nurse for PICC placement due to need for IV antibiotics x 6 weeks. Risks and benefits discussed and informed consent obtained from pt. Right arm assessed with right basilic vein measuring 6.3 mm, straight, and apparent best choice for placement. Using sterile technique and MST, right basilic vein accessed x 1 stick. Mid-arm circumference measured 10 cm from right AC 33 cm. Trimmed cath 50 cm with 2 cm external length noted. CXR shows tip in SVC/RA junction, in good position for use per radiologist. Line secured with stat-lock. Insertion site covered with Biopatch and TSM. Report given to bedside nurse, EDENILSON Gutierrez.
[2024-12-09 16:15] LABS: Glucose Point of Care 303 mg/dL (70-110)
[2024-12-09] MEDS: famotidine 20 mg Tablet PO (17:17)
[2024-12-09] MEDS: docusate sodium 100 mg Capsule PO (17:18)
[2024-12-09] MEDS: insulin lispro 100 unit/1 mL SUBCUT ×2 (17:18→20:29)
[2024-12-09 20:22] LABS: Glucose Point of Care 158 mg/dL (70-110)
[2024-12-09] MEDS: lisinopril 10 mg Tablet PO (20:29)
[2024-12-09] MEDS: atorvastatin 40 mg Tablet 20 MG PO (20:29)
[2024-12-10 03:40] VITALS: BP 115/70; PULSE 76; RESP 19; TEMP 36.8; O2SAT 94
[2024-12-10] MEDS: piperacillin-tazobactam 3.375 GM in sodium chloride 0.9% (plus) 50 ML IV ×3 (04:48→20:42)
[2024-12-10 05:10] LABS: Basophils % 0.4 %; Eosinophils # 0.3 10^3/uL (0.0-0.8); Eosinophils % 3.7 %; Hematocrit 38.6 % (37-53); Lymphocytes # 2.6 10^3/uL (0.8-4.8); Lymphocytes % 35.4 %; Mean Corpuscular HGB Conc 33.2 g/dL (30-55); Mean Corpuscular Hemoglobin 29.5 pg (27-33); Mean Corpuscular Volume 88.9 fl (82-101); Mean Platelet Volume 10.5 fL (7.4-10.4); Monocytes # 0.6 10^3/uL (0.2-0.9); Monocytes % 8.1 %; Neutrophils # 3.75 10^3/uL (1.8-7.7); Neutrophils % 51.7 %; Nucleated Red Blood Cells % 0 %; Platelet Count 219 10^3/cmm (157-399); Red Blood Count 4.34 10^6/uL (3.85-5.65); Red Cell Distribution Width 12.8 % (12.1-15.1); White Blood Count 7.26 10^3/uL (3.29-11.43)
[2024-12-10 05:34] LABS: Alanine Aminotransferase 22 U/L (0-41); Albumin Level 3.3 g/dL (3.5-5.2); Alkaline Phosphatase 75 U/L (40-130); Anion Gap 14.2 (5-19); Aspartate Amino Transferase 28 U/L (0-40); Blood Urea Nitrogen 8 mg/dL (6-20); Calcium 8.6 mg/dL (8.5-10.5); Carbon Dioxide 26 mmol/L (22-29); Chloride 103 mmol/L (98-107); Creatinine Clr Calc Pharmacy 191.1489; Globulin 3.4 g/dL (1.3-4.6); Glomerular Filtration Rate 143.2 mL/min (90-130); Glucose 224 mg/dL (65-115); Osmolality Calculated 293 mOsm/kg (285-295); Potassium 4.2 mmol/L (3.5-5.1); Sodium 139 mmol/L (136-145); Total Bilirubin 0.4 mg/dL (0.15-1.2); Total Protein 6.7 g/dL (6.6-8.7)
[2024-12-10] MEDS: insulin glargine 100 units/1 mL 10 UNIT SUBCUT (06:04)
[2024-12-10 06:25] LABS: Glucose Point of Care 227 mg/dL (70-110)
[2024-12-10] MEDS: aspirin 81 mg EC Tablet PO (07:46)
[2024-12-10] MEDS: insulin lispro 100 unit/1 mL SUBCUT ×4 (07:46→20:43)
[2024-12-10] MEDS: heparin 5,000 unit/mL INJ 1 mL 5000 UNIT SUBCUT ×2 (07:47→20:42)
[2024-12-10] MEDS: famotidine 20 mg Tablet PO ×2 (07:47→17:33)
[2024-12-10] MEDS: docusate sodium 100 mg Capsule PO (07:47)
[2024-12-10 08:00] VITALS: BP 103/57; PULSE 72; RESP 17; TEMP 36.7; O2SAT 97
[2024-12-10] MEDS: vancomycin 1,750 MG/350 ML PIGGYBACK 175 MG IV ×2 (08:53→17:33)
--- NOTE | 2024-12-10 10:54 | P.PN_ITS ---
Subjective 2 Subjective: Patient seen at bedside this morning. Resting comfortably. No overnight events. Pain is well-controlled. Day 1 status post incision bone cortex right foot fifth metatarsal Vitals/I&O/Wt Last Vital Signs Temp 98.1 F 12/10/24 08:00 Pulse 72 12/10/24 08:00 Resp 17 12/10/24 08:00 BP 103/57 12/10/24 08:00 Pulse Ox 97 12/10/24 08:00 O2 Del Method Room Air 12/10/24 08:00 12/09/24 12/10/24 12/10/24 22:59 06:59 14:59 Intake Total 2070 / 3000 640 / 3640 530 / 530 Output Total 400 / 405 1600 / 2005 Balance 1670 / 2595 -960 / 1635 530 / 530 Weight last 48 hrs Weight 251 lb 2 oz Physical Exam 2 Narrative: GENERAL: A&O x 3 VASCULAR: DP/PT pulses palpable 2/4 with CFT intact, <3seconds to distal digits DERMATOLOGICAL: Surgical dressing to right foot clean, dry, intact no strikethrough noted. MUSCULOSKELETAL: 5/5 muscle strength in all 4 quadrants of the lower extremity when tested against resistance. Cavovarus foot type. Mild tenderness with palpation of periincisional area right foot tenderness with calf squeeze of right lower extremity NEUROLOGICAL: Neurological sensation to the affected foot and ankle is diminished through L4-S1 dermatomes via 10g SWMF, diminished sensation extends proximally to the level of the ankle bilaterally. Data 12/10/24 05:02 12/10/24 05:02 Micro: Microbiology 12/09/24 09:25 Gram Stain - Final Bone 12/09/24 09:20 Gram Stain - Final Other Source A&P Assessment and plan (1) Ulcer of right foot with fat layer exposed: (2) Cellulitis of right anterior lower leg: (3) Uncontrolled diabetes mellitus: Qualifiers: Diabetes mellitus type: type 2 Glycemic state: with hyperglycemia Q ualified Code(s): E11.65 - Type 2 diabetes mellitus with hyperglycemia Plan - Right foot full-thickness ulceration with associated cellulitis, concern for abscess -Labs and vitals reviewed -Cultures recent wound care culture show Enterobacter. OR cultures pending -Abx Vanco/Zosyn -Diet: Okay for diet - No further surgical intervention by podiatry during this admission. Patient is to remain strict nonweightbearing to the operative extremity. This includes upon discharge. I discussed with patient that the next 4 to 6 weeks he needs to treat his right lower extremity as if it is broken and not let the foot touch the ground. Patient verbalized understanding to this. Patient has knee scooter at home to help him facilitate this. PICC line has been placed. Continue daily infusions of antibiotics in the outpatient setting as recommended by infectious disease. Patient will need twice weekly follow-ups with podiatry in the outpatient setting. -Pain Mgmt: Per primary team -Weight bearing: Weightbearing to heel for transfers only -Dressings: Dry sterile dressing -Continue current Abx therapy until ID and Sensitivity results -Trend labs -Discharge plan: Okay to discharge home from podiatry standpoint. Recommend follow-up on 12/12/2024 with podiatry in the outpatient setting. Patient will be strict nonweightbearing to the operative extremity for the next 4 to 6 weeks. Patient has knee scooter at home. -Podiatry will continue to round on patient daily and provide recommendations PDMP PDMP Reviewed: Not Reviewed Attestations 2 Medical Necessity Statement*: See hospitalist note Coding Level of Care Code Acute Code for [facility] Fwd Diagnoses Ulcer of right foot with fat layer exposed L97.512 Cellulitis of right anterior lower leg L03.115 Uncontrolled type 2 diabetes mellitus with hyperglycemia E11.65 Diabetes mellitus type: type 2 Glycemic state: with hyperglycemia
[2024-12-10 11:30] LABS: Glucose Point of Care 270 mg/dL (70-110)
[2024-12-10 11:56] VITALS: BP 111/63; PULSE 71; RESP 17; TEMP 36.7; O2SAT 96
[2024-12-10 16:00] VITALS: BP 127/76; PULSE 76; RESP 17; TEMP 36.7; O2SAT 96
--- NOTE | 2024-12-10 16:36 | P.PN_ITS ---
Subjective 2 Subjective: Patient was seen this morning, he is alert oriented x 3, following all commands, denies any fevers, no chills, no cough Vitals/I&O/Wt Last Vital Signs Temp 98.0 F 12/10/24 16:00 Pulse 76 12/10/24 16:00 Resp 17 12/10/24 16:00 BP 127/76 12/10/24 16:00 Pulse Ox 96 12/10/24 16:00 O2 Del Method Room Air 12/10/24 16:00 12/10/24 12/10/24 12/10/24 06:59 14:59 22:59 Intake Total 640 / 3640 1240 / 1240 Output Total 1599 / 2004 1000 / 1000 Balance -960 / 1635 240 / 240 Weight last 48 hrs Weight 113.908 kg Physical Exam 2 Const: COMMON NORMALS: no acute distress and patient oriented x3 Resp: COMMON NORMALS: normal respiratory effort, No retractions, No use of accessory muscles and clear to auscultation bilaterally AUSCULTATION: clear to auscultation bilaterally Cardio: COMMON NORMALS: regular rate, regular rhythm, S1 normal heart sound present and S2 normal heart sound present RATE: regular rate RHYTHM: r egular rhythm HEART SOUNDS: S1 normal heart sound present and S2 normal heart sound present GI: COMMON NORMALS: Normal to inspection, nondistended, normoactive bowel sounds present and non-tender Extremity: COMMON NORMALS: no pedal edema Neuro: COMMON NORMALS: patient oriented x3 Psych: COMMON NORMALS: mental status grossly normal Data 12/10/24 05:02 12/10/24 05:02 Micro: Microbiology 12/09/24 09:20 Gram Stain - Final Other Source Anaerobic Culture - Preliminary Wound Culture - Preliminary Gram Negative Rods 12/09/24 09:25 Gram Stain - Final Bone Tissue Culture - Preliminary 12/09/24 09:25 Anaerobic Culture - Preliminary Bone A&P Assessment and plan (1) Diabetic foot ulcer: MR/MR foot RT wo/w con [id number] IMPRESSION: 1. Osteomyelitis of the 5th metatarsal at the amputated mid diaphyseal tip. 2. Mid lateral forefoot small ulcer, with trace abscesses in the plantar and lateral forefoot. 3. Moderate dorsal forefoot subcutaneous and soft tissue inflammatory change. Correlate for cellulitis. For now continue with empiric IV vancomycin and Zosyn. Lower limb Doppler negative for DVT arterial duplex negative for significant stenosis. Patient is status post incision of bone cortex right foot, Dr. Hernández Plan Will arrange IV antibiotics, cefepime, daptomycin Follow surgical cultures Follow blood cultures PICC line Patient is nonweightbearing right lower extremity for 4 to 6 weeks, patient has a knee scooter -Dressing changes leave the surgical dressing on until he sees Dr. Hernández, he will be seen this week, Qualifiers: Diabetes mellitus type: type 2 Diabetic foot ulcer location: u nspecified part of foot Laterality: right Non-pressure ulcer stage: with fat layer exposed Qualified Code(s): E11.621 - Type 2 diabetes mellitus with foot ulcer; L97.512 - Non-pressure chronic ulcer of other part of right foot with fat layer exposed (2) Cellulitis of right anterior lower leg: (3) Uncontrolled diabetes mellitus: Continue Lantus Continue insulin sliding scale Qualifiers: Diabetes mellitus type: type 2 Glycemic state: with hyperglycemia Q ualified Code(s): E11.65 - Type 2 diabetes mellitus with hyperglycemia (4) Hypertension: Goal blood pressure less than 140/90 mmHg. Continue with home dose of lisinopril for now. Qualifiers: Hypertension type: secondary to endocrine disorders Qualified Code(s): I15.2 - Hypertension secondary to endocrine disorders (5) Dyslipidemia associated with type 2 diabetes mellitus: (6) Osteomyelitis: Plan Full code Carb consistent cardiac diet Protonix for PUD prophylaxis Heparin 5000 every 12 hourly for DVT prophylaxis. Plan for the day: A continue empiric IV antibiotics, arrange outpatient IV antibiotics, PDMP PDMP Reviewed: Not Reviewed Attestations 2 Medical Necessity Statement*: Patient requires hospitalization for diabetic foot ulcer Diagnoses Diabetic ulcer of right foot associated with type 2 diabetes mellitus, with fat layer exposed, unspecified part of foot E11.621; L97.512 Diabetes mellitus type: type 2 Diabetic foot ulcer location: unspecified part of foot Laterality: right Non-pressure ulcer stage: with fat layer exposed Cellulitis of right anterior lower leg L03.115 Uncontrolled type 2 diabetes mellitus with hyperglycemia E11.65 Diabetes mellitus type: type 2 Glycemic state: with hyperglycemia Hypertension due to endocrine disorder I15.2 Hypertension type: secondary to endocrine disorders Dyslipidemia associated with type 2 diabetes mellitus E11.69; E78.5 Osteomyelitis M86.9
[2024-12-10 17:13] LABS: Glucose Point of Care 258 mg/dL (70-110)
[2024-12-10 20:00] VITALS: BP 118/72; PULSE 69; RESP 16; TEMP 36.8; O2SAT 96
[2024-12-10] MEDS: atorvastatin 40 mg Tablet 20 MG PO (20:42)
[2024-12-10] MEDS: lisinopril 10 mg Tablet PO (20:43)
[2024-12-10 20:48] LABS: Glucose Point of Care 219 mg/dL (70-110)
--- NOTE | 2024-12-10 21:16 | PC.NURSE ---
spoke with pharmacy inquiring about vanc trough. nurse informed by pharmacist that we are okay without trough tonight since pt kidney function is okay
[2024-12-10 23:57] VITALS: BP 109/58; PULSE 69; RESP 16; TEMP 36.8; O2SAT 97
[2024-12-11] MEDS: vancomycin 1,750 MG/350 ML PIGGYBACK 175 MG IV ×3 (00:51→18:24)
[2024-12-11] MEDS: piperacillin-tazobactam 3.375 GM in sodium chloride 0.9% (plus) 50 ML IV ×3 (03:56→21:01)
[2024-12-11 04:33] VITALS: BP 103/57; PULSE 61; RESP 16; TEMP 36.8; O2SAT 96
[2024-12-11 06:05] LABS: Basophils # 0.1 10^3/uL (0.0-0.1); Basophils % 0.9 %; Eosinophils # 0.3 10^3/uL (0.0-0.8); Eosinophils % 4.6 %; Lymphocytes # 2.9 10^3/uL (0.8-4.8); Lymphocytes % 40.8 %; Mean Corpuscular HGB Conc 32.3 g/dL (30-55); Mean Corpuscular Hemoglobin 28.8 pg (27-33); Mean Corpuscular Volume 89.2 fl (82-101); Mean Platelet Volume 11.2 fL (7.4-10.4); Monocytes # 0.6 10^3/uL (0.2-0.9); Monocytes % 8.8 %; Neutrophils # 3.08 10^3/uL (1.8-7.7); Neutrophils % 43.9 %; Nucleated Red Blood Cells % 0 %; Platelet Count 199 10^3/cmm (157-399); Red Blood Count 4.37 10^6/uL (3.85-5.65); Red Cell Distribution Width 12.7 % (12.1-15.1); White Blood Count 7.01 10^3/uL (3.29-11.43)
[2024-12-11] MEDS: insulin glargine 100 units/1 mL 10 UNIT SUBCUT (06:31)
[2024-12-11 06:36] LABS: Albumin Level 3.2 g/dL (3.5-5.2); Alkaline Phosphatase 77 U/L (40-130); Blood Urea Nitrogen 8 mg/dL (6-20); Calcium 8.5 mg/dL (8.5-10.5); Carbon Dioxide 23 mmol/L (22-29); Chloride 106 mmol/L (98-107); Creatinine Clr Calc Pharmacy 226.7993; Globulin 3.6 g/dL (1.3-4.6); Glomerular Filtration Rate 176.7 mL/min (90-130); Glucose 206 mg/dL (65-115); Osmolality Calculated 290 mOsm/kg (285-295); Sodium 138 mmol/L (136-145); Total Bilirubin 0.3 mg/dL (0.15-1.2); Total Protein 6.8 g/dL (6.6-8.7)
[2024-12-11 06:41] LABS: Glucose Point of Care 237 mg/dL (70-110)
[2024-12-11 06:47] LABS: Alanine Aminotransferase 26 U/L (0-41); Anion Gap 13.7 (5-19); Aspartate Amino Transferase 37 U/L (0-40); Potassium 4.7 mmol/L (3.5-5.1)
[2024-12-11 07:31] VITALS: BP 98/66; PULSE 73; RESP 16; TEMP 36.6; O2SAT 94
[2024-12-11] MEDS: insulin lispro 100 unit/1 mL SUBCUT ×4 (08:32→21:01)
[2024-12-11] MEDS: heparin 5,000 unit/mL INJ 1 mL 5000 UNIT SUBCUT ×2 (08:33→21:01)
[2024-12-11] MEDS: famotidine 20 mg Tablet PO ×2 (08:34→18:25)
[2024-12-11] MEDS: aspirin 81 mg EC Tablet PO (08:34)
[2024-12-11] MEDS: docusate sodium 100 mg Capsule PO ×2 (08:34→18:25)
--- NOTE | 2024-12-11 10:49 | PC.NURSE ---
Patient has a laceration on medial forehead due to fall from home. 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 Scab on Right knee, Scab on top of right foot below the great toe. Some open areas and some dark scales wrapping around lower Right extremity. Scabbed sore on Left Great Toe. Small scab on 2nd toe on Left foot. Dark scales (dry) on Left lower extremity around entire leg. Scratch on lower Left extremity that is scabbed. 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 Patient also has bruising to right elbow. Patient has poor hygiene due to the dry scales on feet as well as on legs and the red raw excoriation under patients breast.
[2024-12-11 11:17] LABS: Glucose Point of Care 251 mg/dL (70-110)
[2024-12-11 11:21] VITALS: BP 115/78; PULSE 64; RESP 117; TEMP 36.7; O2SAT 96
--- NOTE | 2024-12-11 12:50 | P.PN_ITS ---
Subjective 2 Subjective: Patient seen at bedside this morning. Resting comfortably. Cultures pending no overnight events. Vitals/I&O/Wt Last Vital Signs Temp 98.1 F 12/11/24 11:21 Pulse 64 12/11/24 11:21 Resp 117 H 12/11/24 11:21 BP 115/78 12/11/24 11:21 Pulse Ox 96 12/11/24 11:21 O2 Del Method Room Air 12/11/24 11:21 12/10/24 12/11/24 12/11/24 22:59 06:59 14:59 Intake Total 880 / 2120 700 / 2820 760 / 760 Output Total 450 / 1450 Balance 880 / 1120 250 / 1370 760 / 760 Weight last 48 hrs Weight 245 lb 8 oz Weight 251 lb 2 oz Physical Exam 2 Narrative: GENERAL: A&O x 3 VASCULAR: DP/PT pulses palpable 2/4 with CFT intact, <3seconds to distal digits DERMATOLOGICAL: Surgical dressing to right foot clean, dry, intact no strikethrough noted. MUSCULOSKELETAL: 5/5 muscle strength in all 4 quadrants of the lower extremity when tested against resistance. Cavovarus foot type. Mild tenderness with palpation of periincisional area right foot tenderness with calf squeeze of right lower extremity NEUROLOGICAL: Neurological sensation to the affected foot and ankle is diminished through L4-S1 dermatomes via 10g SWMF, diminished sensation extends proximally to the level of the ankle bilaterally. Data 12/11/24 05:44 12/11/24 05:44 Micro: Microbiology 12/09/24 09:20 Gram Stain - Final Other Source Anaerobic Culture - Preliminary Wound Culture - Preliminary Gram Negative Rods 12/09/24 09:25 Gram Stain - Final Bone Tissue Culture - Preliminary 12/09/24 09:25 Anaerobic Culture - Preliminary Bone A&P Assessment and plan (1) Ulcer of right foot with fat layer exposed: (2) Cellulitis of right anterior lower leg: (3) Uncontrolled diabetes mellitus: Qualifiers: Diabetes mellitus type: type 2 Glycemic state: with hyperglycemia Q ualified Code(s): E11.65 - Type 2 diabetes mellitus with hyperglycemia Plan - Right foot full-thickness ulceration with associated cellulitis, concern for abscess -Labs and vitals reviewed -Cultures recent wound care culture show Enterobacter. OR cultures pending -Abx Vanco/Zosyn -Diet: Okay for diet - No further surgical intervention by podiatry during this admission. Patient is to remain strict nonweightbearing to the operative extremity. This includes upon discharge. I discussed with patient that the next 4 to 6 weeks he needs to treat his right lower extremity as if it is broken and not let the foot touch the ground. Patient verbalized understanding to this. Patient has knee scooter at home to help him facilitate this. PICC line has been placed. Continue daily infusions of antibiotics in the outpatient setting as recommended by infectious disease. Patient will need twice weekly follow-ups with podiatry in the outpatient setting. -Pain Mgmt: Per primary team -Weight bearing: Weightbearing to heel for transfers only -Dressings: Dry sterile dressing -Continue current Abx therapy until ID and Sensitivity results -Trend labs -Discharge plan: Okay to discharge home from podiatry standpoint once final antibiotic recommendations have been made. Cultures currently pending.. Recommend follow-up on 12/12/2024 with podiatry in the outpatient setting. If patient is still inpatient on 12/12/2024 dressing will be changed then and follow-up will be on 12/16/2024. Patient will be seen twice weekly in the podiatry clinic upon discharge from the hospital. Patient will be strict nonweightbearing to the operative extremity for the next 4 to 6 weeks. Patient has knee scooter at home. -Podiatry will continue to round on patient daily and provide recommendations PDMP PDMP Reviewed: Not Reviewed Attestations 2 Medical Necessity Statement*: See hospitalist note Coding Level of Care Code Acute Code for [facility] Fwd Diagnoses Ulcer of right foot with fat layer exposed L97.512 Cellulitis of right anterior lower leg L03.115 Uncontrolled type 2 diabetes mellitus with hyperglycemia E11.65 Diabetes mellitus type: type 2 Glycemic state: with hyperglycemia
--- NOTE | 2024-12-11 15:46 | P.PN_ITS ---
Subjective 2 Subjective: Patient was seen this morning, he is alert oriented x 3, following all commands, no pain complaints Vitals/I&O/Wt Last Vital Signs Temp 98.1 F 12/11/24 11:21 Pulse 64 12/11/24 11:21 Resp 117 H 12/11/24 11:21 BP 115/78 12/11/24 11:21 Pulse Ox 96 12/11/24 11:21 O2 Del Method Room Air 12/11/24 11:21 12/11/24 12/11/24 12/11/24 06:59 14:59 22:59 Intake Total 700 / 2820 760 / 760 Output Total 450 / 1450 Balance 250 / 1370 760 / 760 Weight last 48 hrs Weight 111.357 kg Weight 113.908 kg Physical Exam 2 Const: COMMON NORMALS: no acute distress and patient oriented x3 Resp: COMMON NORMALS: normal respiratory effort, No retractions, No use of accessory muscles and clear to auscultation bilaterally AUSCULTATION: clear to auscultation bilaterally Cardio: COMMON NORMALS: regular rate, regular rhythm, S1 normal heart sound present and S2 normal heart sound present RATE: regular rate RHYTHM: r egular rhythm HEART SOUNDS: S1 normal heart sound present and S2 normal heart sound present GI: COMMON NORMALS: Normal to inspection, nondistended, normoactive bowel sounds present and non-tender Extremity: COMMON NORMALS: no pedal edema Neuro: COMMON NORMALS: patient oriented x3 Psych: COMMON NORMALS: mental status grossly normal Data 12/11/24 05:44 12/11/24 05:44 Micro: Microbiology 12/09/24 09:25 Anaerobic Culture - Preliminary Bone 12/09/24 09:20 Gram Stain - Final Other Source Anaerobic Culture - Preliminary Wound Culture - Preliminary Gram Negative Rods 12/06/24 14:24 Blood Culture - Final Blood NO GROWTH AFTER 5 DAYS 12/09/24 09:25 Gram Stain - Final Bone Tissue Culture - Preliminary A&P Assessment and plan (1) Diabetic foot ulcer: MR/MR foot RT wo/w con [id number] IMPRESSION: 1. Osteomyelitis of the 5th metatarsal at the amputated mid diaphyseal tip. 2. Mid lateral forefoot small ulcer, with trace abscesses in the plantar and lateral forefoot. 3. Moderate dorsal forefoot subcutaneous and soft tissue inflammatory change. Correlate for cellulitis. For now continue with empiric IV vancomycin and Zosyn. Lower limb Doppler negative for DVT arterial duplex negative for significant stenosis. Patient is status post incision of bone cortex right foot, Dr. Hernández Plan Will arrange IV antibiotics, cefepime, daptomycin Follow surgical cultures Follow blood cultures PICC line Patient is nonweightbearing right lower extremity for 4 to 6 weeks, patient has a knee scooter -Dressing changes leave the surgical dressing on until he sees Dr. Hernández, he will be seen this week, Qualifiers: Diabetes mellitus type: type 2 Diabetic foot ulcer location: u nspecified part of foot Laterality: right Non-pressure ulcer stage: with fat layer exposed Qualified Code(s): E11.621 - Type 2 diabetes mellitus with foot ulcer; L97.512 - Non-pressure chronic ulcer of other part of right foot with fat layer exposed (2) Cellulitis of right anterior lower leg: (3) Uncontrolled diabetes mellitus: Continue Lantus Continue insulin sliding scale Qualifiers: Diabetes mellitus type: type 2 Glycemic state: with hyperglycemia Q ualified Code(s): E11.65 - Type 2 diabetes mellitus with hyperglycemia (4) Hypertension: Goal blood pressure less than 140/90 mmHg. Continue with home dose of lisinopril for now. Qualifiers: Hypertension type: secondary to endocrine disorders Qualified Code(s): I15.2 - Hypertension secondary to endocrine disorders (5) Dyslipidemia associated with type 2 diabetes mellitus: (6) Osteomyelitis: Plan Full code Carb consistent cardiac diet Protonix for PUD prophylaxis Heparin 5000 every 12 hourly for DVT prophylaxis. Plan for the day: A continue empiric IV antibiotics, monitor PDMP PDMP Reviewed: Not Reviewed Attestations 2 Medical Necessity Statement*: Patient requires hospitalization for IV antibiotics, for diabetic foot infection Diagnoses Diabetic ulcer of right foot associated with type 2 diabetes mellitus, with fat layer exposed, unspecified part of foot E11.621; L97.512 Diabetes mellitus type: type 2 Diabetic foot ulcer location: unspecified part of foot Laterality: right Non-pressure ulcer stage: with fat layer exposed Cellulitis of right anterior lower leg L03.115 Uncontrolled type 2 diabetes mellitus with hyperglycemia E11.65 Diabetes mellitus type: type 2 Glycemic state: with hyperglycemia Hypertension due to endocrine disorder I15.2 Hypertension type: secondary to endocrine disorders Dyslipidemia associated with type 2 diabetes mellitus E11.69; E78.5 Osteomyelitis M86.9
[2024-12-11 16:00] VITALS: BP 118/77; PULSE 69; RESP 16; TEMP 36.7; O2SAT 93
[2024-12-11 16:50] LABS: Glucose Point of Care 250 mg/dL (70-110)
[2024-12-11 20:00] VITALS: BP 136/78; PULSE 64; RESP 17; TEMP 36.8; O2SAT 95
[2024-12-11 20:15] LABS: Glucose Point of Care 311 mg/dL (70-110)
[2024-12-11] MEDS: lisinopril 10 mg Tablet PO (21:00)
[2024-12-11] MEDS: atorvastatin 40 mg Tablet 20 MG PO (21:01)
[2024-12-12] VITALS: BP 100/64; PULSE 68; RESP 18; TEMP 36.4; O2SAT 97
[2024-12-12] MEDS: vancomycin 1,750 MG/350 ML PIGGYBACK 175 MG IV ×2 (01:06→08:30)
[2024-12-12 04:00] VITALS: BP 111/66; PULSE 63; RESP 16; TEMP 36.7; O2SAT 95
[2024-12-12] MEDS: piperacillin-tazobactam 3.375 GM in sodium chloride 0.9% (plus) 50 ML IV ×2 (04:01→12:36)
[2024-12-12 05:32] LABS: Basophils % 0.4 %; Eosinophils # 0.3 10^3/uL (0.0-0.8); Eosinophils % 4.6 %; Hematocrit 39.3 % (37-53); Lymphocytes # 2.8 10^3/uL (0.8-4.8); Lymphocytes % 39.3 %; Mean Corpuscular HGB Conc 33.1 g/dL (30-55); Mean Corpuscular Hemoglobin 29.5 pg (27-33); Mean Corpuscular Volume 89.3 fl (82-101); Mean Platelet Volume 11.4 fL (7.4-10.4); Monocytes # 0.5 10^3/uL (0.2-0.9); Monocytes % 6.6 %; Neutrophils # 3.41 10^3/uL (1.8-7.7); Neutrophils % 48.1 %; Nucleated Red Blood Cells % 0 %; Platelet Count 208 10^3/cmm (157-399); Red Cell Distribution Width 12.7 % (12.1-15.1)
[2024-12-12 05:59] LABS: Alanine Aminotransferase 25 U/L (0-41); Albumin Level 3.2 g/dL (3.5-5.2); Alkaline Phosphatase 78 U/L (40-130); Aspartate Amino Transferase 29 U/L (0-40); Blood Urea Nitrogen 9 mg/dL (6-20); Calcium 8.6 mg/dL (8.5-10.5); Carbon Dioxide 23 mmol/L (22-29); Chloride 101 mmol/L (98-107); Creatinine Clr Calc Pharmacy 188.9994; Globulin 3.8 g/dL (1.3-4.6); Glomerular Filtration Rate 143.2 mL/min (90-130); Glucose 211 mg/dL (65-115); Osmolality Calculated 283 mOsm/kg (285-295); Sodium 134 mmol/L (136-145); Total Bilirubin 0.2 mg/dL (0.15-1.2)
[2024-12-12 06:04] LABS: Anion Gap 14.2 (5-19); Potassium 4.2 mmol/L (3.5-5.1)
[2024-12-12 06:30] LABS: Glucose Point of Care 216 mg/dL (70-110)
[2024-12-12 07:42] VITALS: BP 106/66; PULSE 59; RESP 16; TEMP 36.7; O2SAT 98
[2024-12-12] MEDS: insulin glargine 100 units/1 mL 10 UNIT SUBCUT (08:25)
[2024-12-12] MEDS: insulin lispro 100 unit/1 mL SUBCUT ×2 (08:26→12:37)
[2024-12-12] MEDS: heparin 5,000 unit/mL INJ 1 mL 5000 UNIT SUBCUT (08:26)
[2024-12-12] MEDS: aspirin 81 mg EC Tablet PO (08:26)
[2024-12-12] MEDS: docusate sodium 100 mg Capsule PO (08:26)
[2024-12-12] MEDS: famotidine 20 mg Tablet PO (08:26)
[2024-12-12 11:14] VITALS: BP 102/65; PULSE 63; RESP 15; TEMP 36.8; O2SAT 95
[2024-12-12 11:39] LABS: Glucose Point of Care 280 mg/dL (70-110)
--- NOTE | 2024-12-12 13:20 | PM.DCS ---
Discharge Providers Date of Admission: 12/06/24 18:33 Date of Discharge: December 12, 2024 Attending Provider at Admission: Armani Ramires MD Attending Provider at Discharge: Raymond Solorio MD Primary Care Provider: Stephie Morales DO Diagnoses at Discharge Discharge Diagnosis (1) Diabetic foot ulcer: Status: Resolved Qualifiers: Diabetes mellitus type: type 2 Diabetic foot ulcer location: unspecified part of foot Laterality: right Non-pressure ulcer stage: with fat layer exposed Qualified Code(s): E11.621 - Type 2 diabetes mellitus with foot ulcer; L97.512 - Non-pressure chronic ulcer of other part of right foot with fat layer exposed (2) Cellulitis of right anterior lower leg: Status: Resolved (3) Uncontrolled diabetes mellitus: Status: Acute Qualifiers: Diabetes mellitus type: type 2 Glycemic state: with hyperglycemia Qualified Code(s): E11.65 - Type 2 diabetes mellitus with hyperglycemia (4) Hypertension: Status: Acute Qualifiers: Hypertension type: secondary to endocrine disorders Qualified Code(s): I15.2 - Hypertension secondary to endocrine disorders (5) Dyslipidemia associated with type 2 diabetes mellitus: Status: Acute (6) Osteomyelitis: Status: Resolved Reason for Visit Reason for Visit: right foot problems Hospital Course Hospital Course This is a 49-year-old male with past medical history of type 2 diabetes, who presents [facility] for diabetic foot ulcer Right foot diabetic foot ulcer, MR/MR foot RT wo/w con [id number] IMPRESSION: 1. Osteomyelitis of the 5th metatarsal at the amputated mid diaphyseal tip. 2. Mid lateral forefoot small ulcer, with trace abscesses in the plantar and lateral forefoot. 3. Moderate dorsal forefoot subcutaneous and soft tissue inflammatory change. Correlate for cellulitis. - Received broad-spectrum antibiotic therapy - Patient was status post incision of bone cortex right foot - Overall clinically improved - Will be discharged on daptomycin, cefepime, PICC line placed with close follow-up with Dr. Hernández as outpatient - Daptomycin 1000 mg IV daily, for 6 weeks, stop date 01/20/2025, weekly CBC, creatinine, LFT, CPK - Cefepime 2 g IV every 12 hours for 6 weeks stop date 01/20/2025, weekly CBC, LFT, creatinine, CPK - Wound care, Plain packing strip 1 inch, followed by a sterile 4x4, followed by a 4 inch Kerlex, and a 4 inch jeffrey wrap. - Nonweightbearing right lower extremity - Follow-up with Dr. Hernández twice weekly Physical Exam Const: COMMON NORMALS: no acute distress and patient oriented x3 Resp: COMMON NORMALS: normal respiratory effort, No retractions, No use of accessory muscles and clear to auscultation bilaterally AUSCULTATION: clear to auscultation bilaterally Cardio: COMMON NORMALS: regular rate, regular rhythm, S1 normal heart sound present and S2 normal heart sound present RATE: regular rate RHYTHM: regular rhythm HEART SOUNDS: S1 normal heart sound present and S2 normal heart sound present GI: COMMON NORMALS: Normal to inspection, nondistended, normoactive bowel sounds present and non-tender Extremity: COMMON NORMALS: no pedal edema Neuro: COMMON NORMALS: patient oriented x3 Psych: COMMON NORMALS: mental status grossly normal Discharge Data Studies Completed and Pending Completed Studies During Hospitalization Category Date Time Status CXRP [XR chest 1V portable [id number]] Routine Exams 12/09/24 11:44 Completed XR foot RT min 3V* [id number] Stat Exams 12/06/24 14:09 Completed MR foot RT wo/w con [id number] Stat MRI 12/07/24 11:00 [place] [id number] Routine Ultrasound 12/06/24 16:23 Completed Pending at discharge Category Date Time Status Anaerobic Culture Routine Lab 12/09/24 09:20 Results Anaerobic Culture Routine Lab 12/09/24 09:25 Results Bacterial Antigen Stat Lab 12/06/24 16:23 Ordered Blood Culture Stat Lab 12/06/24 14:24 Results Urinalysis Routine Lab 12/06/24 19:45 Ordered Vancomycin Trough Timed Lab 12/12/24 16:00 Ordered Wound Culture and Gram Stain Routine Lab 12/09/24 09:20 Results Pathology: Surgical [PTH] Routine Pth 12/09/24 09:45 Received Radiology Impressions Foot X-Ray 12/06/24 14:09 Impression: 1. Stable postoperative changes of right fifth metatarsal. 2. Soft tissue swelling over the lateral aspect of right foot at the level of the right fifth toe and fifth metatarsal. Duplex Scan Lower Extremity Artery 12/06/24 16:23 IMPRESSION: No stenosis or occlusion. Foot MRI 12/07/24 11:00 IMPRESSION: 1. Osteomyelitis of the 5th metatarsal at the amputated mid diaphyseal tip. 2. Mid lateral forefoot small ulcer, with trace abscesses in the plantar and lateral forefoot. 3. Moderate dorsal forefoot subcutaneous and soft tissue inflammatory change. Correlate for cellulitis. Chest X-Ray 12/09/24 11:44 IMPRESSION: 1. Suboptimal inspiration versus low lung volumes 2. No acute infiltrate 3. PICC line Laboratory Results WBC 7.10 10^3/uL (3.29-11.43) 12/12/24 05:01 RBC 4.40 10^6/uL (3.85-5.65) 12/12/24 05:01 Hgb 13.00 g/dL (11.27-16.99) 12/12/24 05:01 Hct 39.3 % (37-53) 12/12/24 05:01 MCV 89.3 fl (82-101) 12/12/24 05:01 MCH 29.5 pg (27-33) 12/12/24 05:01 MCHC 33.1 g/dL (30-55) 12/12/24 05:01 RDW 12.7 % (12.1-15.1) 12/12/24 05:01 Plt Count 208 10^3/cmm (157-399) 12/12/24 05:01 MPV 11.4 fL (7.4-10.4) H 12/12/24 05:01 Neut % (Auto) 48.1 % 12/12/24 05:01 Lymph % (Auto) 39.3 % 12/12/24 05:01 [place] % (Auto) 6.6 % 12/12/24 05:01 Eos % (Auto) 4.6 % 12/12/24 05:01 Baso % (Auto) 0.4 % 12/12/24 05:01 Neut # (Auto) 3.41 10^3/uL (1.8-7.7) 12/12/24 05:01 Lymph # (Auto) 2.8 10^3/uL (0.8-4.8) 12/12/24 05:01 [place] # (Auto) 0.5 10^3/uL (0.2-0.9) 12/12/24 05:01 Eos # (Auto) 0.3 10^3/uL (0.0-0.8) 12/12/24 05:01 Baso # (Auto) 0.0 10^3/uL (0.0-0.1) 12/12/24 05:01 Nucleated RBC % (auto) 0 % 12/12/24 05:01 Nucleated RBCs # 0.0 /100WBC 12/12/24 05:01 ESR 16 mm/hr (0-10) H 12/06/24 14:19 Sodium 134 mmol/L (136-145) L 12/12/24 05:01 Potassium 4.2 mmol/L (3.5-5.1) 12/12/24 05:01 Chloride 101 mmol/L (98-107) 12/12/24 05:01 Carbon Dioxide 23 mmol/L (22-29) 12/12/24 05:01 Anion Gap 14.2 (5-19) 12/12/24 05:01 BUN 9 mg/dL (6-20) 12/12/24 05:01 Creatinine 0.6 mg/dL (0.7-1.2) L 12/12/24 05:01 GFR Calculation 143.2 mL/min (90-130) H 12/12/24 05:01 Glucose 211 mg/dL (65-115) H 12/12/24 05:01 POC Glucose 280 mg/dL (70-110) H 12/12/24 11:14 Estimat Average Glucose 263 12/06/24 14:19 Hemoglobin A1c 10.8 % (4.0-6.0) H 12/06/24 14:19 Calculated Osmolality 283 mOsm/kg (285-295) L 12/12/24 05:01 Lactic Acid 1.6 mmol/L (0.5-2.2) 12/06/24 14:19 Calcium 8.6 mg/dL (8.5-10.5) 12/12/24 05:01 Phosphorus 2.9 mg/dL (2.5-4.5) 12/09/24 04:46 Magnesium 1.6 mg/dL (1.7-2.3) L 12/09/24 04:46 Iron 39 ug/dL (59-158) L 12/06/24 14:19 TIBC 226 mcg/dl 12/06/24 14:19 % Saturation 17.2 % (20-50) L 12/06/24 14:19 Unsat Iron Binding 187 ug/dL (112-347) 12/06/24 14:19 Total Bilirubin 0.2 mg/dL (0.15-1.2) 12/12/24 05:01 AST 29 U/L (0-40) 12/12/24 05:01 ALT 25 U/L (0-41) 12/12/24 05:01 Alkaline Phosphatase 78 U/L (40-130) 12/12/24 05:01 C-Reactive Protein 108.2 mg/L (0.0-4.9) H 12/06/24 14:19 Total Protein 7.0 g/dL (6.6-8.7) 12/12/24 05:01 Albumin 3.2 g/dL (3.5-5.2) L 12/12/24 05:01 Globulin 3.8 g/dL (1.3-4.6) 12/12/24 05:01 Triglycerides 133 mg/dL (0-150) 12/07/24 04:45 Triglycerides Cancelled 12/07/24 04:45 Cholesterol 130 mg/dL (0-200) 12/07/24 04:45 Cholesterol Cancelled 12/07/24 04:45 LDL Cholesterol, Calc 73 mg/dL (50-129) 12/07/24 04:45 LDL Cholesterol, Calc Cancelled 12/07/24 04:45 HDL Cholesterol 30 mg/dL (60-100) L 12/07/24 04:45 HDL Cholesterol Cancelled 12/07/24 04:45 LDL/HDL Ratio 2.43 RATIO (0.00-3.22) 12/07/24 04:45 LDL/HDL Ratio Cancelled 12/07/24 04:45 Cholesterol/HDL Ratio 4.33 mg/dL (1.0-5.00) 12/07/24 04:45 Cholesterol/HDL Ratio Cancelled 12/07/24 04:45 Vitamin B12 436 pg/mL (232-1245) 12/06/24 14:19 Folate 14.5 ng/mL (4.5-32.2) 12/07/24 04:45 Procalcitonin 0.07 ng/mL (0-0.5) 12/07/24 04:45 Procalcitonin Cancelled 12/07/24 04:45 TSH 0.73 uIU/mL (0.27-4.20) 12/06/24 14:19 Nasal MRSA (PCR) Not detected (Negative) 12/06/24 21:40 Vancomycin Trough 17.2 ug/mL (10-15) H 12/08/24 21:30 Vitals Last Vital Signs Temp 98.2 F 12/12/24 11:14 Pulse 63 12/12/24 11:14 Resp 15 12/12/24 11:14 BP 102/65 12/12/24 11:14 Pulse Ox 95 12/12/24 11:14 O2 Del Method Room Air 12/12/24 11:14 Discharge Plan Discharge Patient Disposition: Home Condition: Stable Prescriptions: New atorvastatin 40 mg Tablet 20 mg PO BEDTIME 30 Days Qty: 30 0RF insulin glargine [Lantus U-100 Insulin] 100 unit/mL Solution 10 unit SUBCUT QAM 30 Days Qty: 3 0RF aspirin 81 mg Tablet,Delayed Release (Dr/Ec) 81 mg PO DAILY 30 Days Qty: 30 0RF insulin lispro [Humalog U-100 Insulin] 100 unit/mL Solution See Rx Instructions .ROUTE .COMPLEX Qty: 10 0RF Rx Instructions: Inject, subcut, 3 times daily, after meals, based on low dose insulin sliding scale provided Continued lisinopril 10 mg tablet 10 mg PO BEDTIME Qty: 90 0RF Rx Instructions: Patient has to have an appointment metformin 500 mg tablet 500 mg PO BID Qty: 60 0RF Discontinued glipizide 10 mg tablet 10 mg PO QAM Qty: 30 0RF levofloxacin 750 mg tablet 750 mg PO DAILY Qty: 7 0RF amoxicillin-pot clavulanate 875-125 mg tablet 1 tab PO Q12H Discharge Orders: Discharge Order (Routine); Ordered 12/12/24 Ordered By: Raymond Solorio Referrals: Stephie Morales DO [Primary Care Provider, Family Practice] - 12/12/24 12:45 pm Referral Note: Kodak Hernández DPM [Physician, Podiatry] - 12/18/24 3:00 pm Referral Note: Discharge Diet: Diabetic Discharge Activity: Resume usual activity Patient Instructions: Acute Wound Care (DC), Opioid Safety, Post Anesthesia Care Activity Restrictions/Additional Instructions: - Daptomycin 1000 mg IV daily, for 6 weeks, stop date 01/20/2025, weekly CBC, creatinine, LFT, CPK - Cefepime 2 g IV every 12 hours for 6 weeks stop date 01/20/2025, weekly CBC, LFT, creatinine, CPK - Wound care, Plain packing strip 1 inch, followed by a sterile 4x4, followed by a 4 inch Kerlex, and a 4 inch jeffrey wrap. - Nonweightbearing right lower extremity - Follow-up with Dr. Hernández twice weekly Discharge Attestations Time Spent in Discharge Care*: greater than 30 min Quality Metrics Clinical Quality Measures [ No reported AMI, CVA or VTE this stay] Coding Level of Care Code 32289 Total time (in minutes) for Discharge: 45 Diagnoses Diabetic ulcer of right foot associated with type 2 diabetes mellitus, with fat layer exposed, unspecified part of foot E11.621; L97.512 Diabetes mellitus type: type 2 Diabetic foot ulcer location: unspecified part of foot Laterality: right Non-pressure ulcer stage: with fat layer exposed Cellulitis of right anterior lower leg L03.115 Uncontrolled type 2 diabetes mellitus with hyperglycemia E11.65 Diabetes mellitus type: type 2 Glycemic state: with hyperglycemia Hypertension due to endocrine disorder I15.2 Hypertension type: secondary to endocrine disorders Dyslipidemia associated with type 2 diabetes mellitus E11.69; E78.5 Osteomyelitis M86.9
[2024-12-12 15:13] VITALS: BP 106/70; PULSE 74; RESP 15; TEMP 36.8; O2SAT 95
[2024-12-12 16:10] VITALS: BP 106/70; PULSE 74; RESP 16; TEMP 36.8; O2SAT 95
--- NOTE | 2024-12-12 16:12 | PC.NURSE ---
Report given to EDENILSON Joesph. All questions answered and paperwork sent with patient to give to facility upon arrival. Pt left with mother via POV and was instructed to go straight to facility.
== END 2024-12-12 16:00 | disposition home or self-care (01) | DRG 629 ==
LOC: ER 18:16 → MEDSURG 18:33
PROVIDERS: Podiatrist Foot & Ankle Surgery; Admitting Provider Student in an Organized Health Care Education/Training Program; Emergency Provider Physician Assistant; PCP Family Medicine; Visit Provider Family Medicine
PROC: 0QBN0ZZ Excision of Right Metatarsal, Open Approach (ICD-10-PCS; principal; 2024-12-09 08:55)
DX: E11.69 Type 2 diabetes mellitus with other specified complication (principal); L03.115 Cellulitis of right lower limb; L97.412 Non-pressure chronic ulcer of right heel and midfoot with fat layer exposed; M86.9 Osteomyelitis, unspecified; E11.621 Type 2 diabetes mellitus with foot ulcer; E11.65 Type 2 diabetes mellitus with hyperglycemia; I15.2 Hypertension secondary to endocrine disorders; E78.5 Hyperlipidemia, unspecified; Z79.4 Long term (current) use of insulin; R00.0 Tachycardia, unspecified; B35.1 Tinea unguium
CPT/HCPCS: 36415; 36416; 36573; 36592; 71045; 73630; 73720; 80053; 80061; 80202; 82607; 82746; 82962; 83036; 83540; 83550; 83605; 83735; 84100; 84145; 84443; 85025; 85651; 86140; 87040; 87070; 87075; 87077; 87176; 87186; 87205; 88305; 88311; 93925; 94664; 96365; 96367; 96372; 97116; 97161; 99285; J1644; J1815; J2250; J2543; J2704; J3010; J3370; J3372; J7030; J9999

== ENCOUNTER 2025-02-18 16:00 | Outpatient (CLI) | payer OTHER, SELFPAY | END 2025-02-18 16:01 | LOC: SPT 16:03 | PROVIDERS: PCP Family Medicine; Visit Provider Podiatrist Foot & Ankle Surgery | DX: Z46.89 Encounter for fitting and adjustment of other specified devices (principal); L97.512 Non-pressure chronic ulcer of other part of right foot with fat layer exposed; E11.621 Type 2 diabetes mellitus with foot ulcer | CPT/HCPCS: L4361 ==

== ENCOUNTER → 2025-02-27 09:57 | Outpatient (BNVA) | payer OTHER, SELFPAY | PROVIDERS: PCP Family Medicine; Visit Provider Family Medicine | DX: E11.65 Type 2 diabetes mellitus with hyperglycemia (principal) | CPT/HCPCS: 80053; 83036 ==

== ENCOUNTER → 2025-03-20 08:15 | Outpatient (BNVA) | payer MEDICAID, SELFPAY | PROVIDERS: PCP Family Medicine; Visit Provider Podiatrist Foot & Ankle Surgery | DX: E11.621 Type 2 diabetes mellitus with foot ulcer (principal); L97.512 Non-pressure chronic ulcer of other part of right foot with fat layer exposed; G62.81 Critical illness polyneuropathy; E11.65 Type 2 diabetes mellitus with hyperglycemia; L60.3 Nail dystrophy; Z79.4 Long term (current) use of insulin; Z79.84 Long term (current) use of oral hypoglycemic drugs | CPT/HCPCS: 73630 ==

== ENCOUNTER → 2025-06-12 11:37 | Outpatient (BNVA) | payer MEDICAID, SELFPAY | PROVIDERS: PCP Family Medicine; Visit Provider Family Medicine | DX: E11.52 Type 2 diabetes mellitus with diabetic peripheral angiopathy with gangrene (principal); Z79.4 Long term (current) use of insulin; E11.9 Type 2 diabetes mellitus without complications | CPT/HCPCS: 80053; 80061; 82043; 83036 ==

== ENCOUNTER 2025-07-18 13:23 | Outpatient (CLI) | payer MEDICAID, SELFPAY ==
--- NOTE | 2025-07-18 13:00 | MRR_ITS ---
PROCEDURE INFORMATION: Exam: MR Right Lower Extremity Other Than Joint Without and With Contrast; Foot Exam date and time: 07/18/2025 1:37 PM Age: 49 years old Clinical indication: Pain; Prior surgery; Surgery date: 1-6 months; Surgery type: Debridement of ulcer on R foot; Ulcer/abscess on lateral right foot, ? osteo; Additional info: Osteomyelitis of right foot TECHNIQUE: Imaging protocol: Magnetic resonance imaging of the right lower extremity without and with contrast. Exam focused on the foot. Contrast material: MULTIHANCE; Contrast volume: 20 ml; Contrast route: INTRAVENOUS (IV); COMPARISON: MR foot RT wo/w con [id number] 12/07/2024 11:19 AM. Right foot radiographs dated 03/20/2025. FINDINGS: Bones/joints: Stable post amputation change of the distal 5th metatarsal and the base of the proximal phalanx of the 5th toe. Visible bone marrow is within normal limits. No evidence of the acute osteomyelitis. LIGAMENTS: Lisfranc ligament: Unremarkable. No evidence of tear. TENDONS: Flexor tendons of foot: Amputation of the flexor tendons of the 5th ray. Tibialis posterior tendon: Unremarkable as visualized. Peroneal tendons: Unremarkable as visualized. Extensor tendons of foot: Unremarkable. No evidence of tear. Tibialis anterior tendon: Unremarkable as visualized. Tarsal canal (Sinus tarsi): Unremarkable. Tarsal tunnel: Unremarkable. Soft tissues: No soft tissue fluid collection or abscess. There is diffuse atrophy of the foot musculature. Plantar fascia: Unremarkable as visualized. MR/MR foot RT wo/w con [id number] IMPRESSION: 1. No osteomyelitis. 2. No soft tissue abscess or fluid collection. 3. Post amputation changes as described.
[2025-07-18] MEDS: gadobenate dimeglumine 20 mL vial IV (14:11)
== END 2025-07-18 13:24 | disposition home or self-care (01) ==
LOC: RAD 13:24
PROVIDERS: PCP Family Medicine; Visit Provider Podiatrist Foot & Ankle Surgery
DX: M86.9 Osteomyelitis, unspecified (principal); Z89.431 Acquired absence of right foot
CPT/HCPCS: 73720